=== PATIENT | male | born 1965 | race Two or more races ===

== ENCOUNTER 2020-03-27 08:58 | Outpatient (REF) | payer BC, SELFPAY ==
[2020-03-27 10:21] LABS: MANUAL DIFF FLAG NO
[2020-03-27 10:32] LABS: Basophils Absolute Auto 0.1 X10*3/uL (0.0-0.2); Basophils Percent Auto 0.8 % (0-2); Eosinophils Absolute Auto 0.3 X10*3/uL (0.0-0.4); Eosinophils Percent Auto 4.1 % (0-4); Hematocrit 42.8 % (42-52); Hemoglobin 14.2 g/dl (14.0-18.0); Imm Gran Abs Auto 0.01 X10*3/uL (0.00-0.03); Imm Gran Pct Auto 0.1 % (0.0-0.4); Lymphocytes Absolute Auto 1.8 X10*3/uL (1.2-4.9); Lymphocytes Percent Auto 23.6 % (20-40); Mean Corpuscular HGB Conc 33.2 g/dl (31.0-36.0); Mean Corpuscular Hemoglobin 30.2 pg (27.0-33.0); Mean Corpuscular Volume 91.1 fL (80-98); Mean Platelet Volume 10.8 fL (9.4-12.4); Monocytes Absolute Auto 0.7 X10*3/uL (0.1-1.2); Monocytes Percent Auto 8.4 % (2-11); Neutrophils Absolute Auto 4.9 X10*3/uL (2.0-8.3); Platelet Count 267 X10*3/uL (160-400); Red Cell Distribution Width 13.6 % (11.0-16.0); White Blood Count 7.8 X10*3/uL (4.8-10.8)
[2020-03-27 11:09] LABS: Alanine Aminotransferase 12 U/L (0-40); Albumin Level 4.7 g/dL (3.5-5.0); Alkaline Phosphatase 77 U/L (39-117); Anion Gap 14 (12-20); Aspartate Amino Transferase 17 U/L (5-37); Bilirubin Total 0.6 mg/dL (0.0-1.0); Blood Urea Nitrogen 20 mg/dL (9-16); Calcium 9.2 mg/dL (8.4-10.2); Carbon Dioxide 28 mmol/L (22-29); Chloride 104 mmol/L (96-108); Cholesterol 236 mg/dL; Estimated Glomerular Filt Rate > 60; Glucose Fasting 88 mg/dL (60-99); HDL Cholesterol 43 mg/dL; Iron 94 mcg/dL (45-160); LDL Cholesterol Calculated 135 mg/dl; Percent Iron Saturation 25 % (15-50); Potassium 4.5 mmol/l (3.3-5.1); Sodium 141 mmol/L (135-145); Total Iron Binding Capacity 369 mcg/dL (228-428); Total Protein 7.2 g/dL (6.5-8.0); Triglycerides 290 mg/dL; Unsaturated Iron Binding 275 ug/dL
[2020-03-27 11:30] LABS: Ferritin 22 ng/mL (20-250)
[2020-03-27 11:44] LABS: Folate 11.6 ng/mL (> or = 4.0); Vitamin B12 558 pg/mL (200-900)
== END 2020-03-27 08:59 | disposition home or self-care (01) ==
LOC: HO.LAB 08:58
PROVIDERS: PCP Internal Medicine; Visit Provider Internal Medicine
DX: E78.00 Pure hypercholesterolemia, unspecified (principal); D64.9 Anemia, unspecified
CPT/HCPCS: 36415; 80053; 80061; 82607; 82728; 82746; 83540; 85025

== ENCOUNTER 2021-05-24 09:42 | Outpatient (REF) | payer BC, SELFPAY ==
[2021-05-24 10:53] LABS: Alanine Aminotransferase 15 U/L (0-40); Albumin Level 4.3 g/dL (3.5-5.0); Alkaline Phosphatase 84 U/L (39-117); Anion Gap 11 (12-20); Aspartate Amino Transferase 18 U/L (5-37); Bilirubin Total 0.4 mg/dL (0.0-1.0); Blood Urea Nitrogen 17 mg/dL (9-16); Calcium 9.3 mg/dL (8.4-10.2); Carbon Dioxide 28 mmol/L (22-29); Chloride 104 mmol/L (96-108); Cholesterol 224 mg/dL; Estimated Glomerular Filt Rate > 60; Glucose Fasting 108 mg/dL (60-99); HDL Cholesterol 37 mg/dL; LDL Cholesterol Calculated 150 mg/dl; Potassium 4.5 mmol/L (3.3-5.1); Sodium 138 mmol/L (135-145); Total Protein 6.9 g/dL (6.5-8.0); Triglycerides 189 mg/dL
[2021-05-29 15:21] LABS: Testosterone, Free 84.6 pg/mL (35.0-155.0); Testosterone, Total 627 ng/dL (250-1100)
== END 2021-05-24 09:43 | disposition home or self-care (01) ==
LOC: HO.LAB 09:42
PROVIDERS: PCP Internal Medicine; Visit Provider Internal Medicine
DX: E78.2 Mixed hyperlipidemia (principal); N52.9 Male erectile dysfunction, unspecified
CPT/HCPCS: 36415; 80053; 80061; 84402; 84403

== ENCOUNTER 2022-07-02 07:39 | Emergency (ER) | payer BC, SELFPAY ==
--- NOTE | ~2022-07-02 | CT_ITS ---
EXAMINATION: CT ABDOMEN AND PELVIS WITHOUT CONTRAST CLINICAL INFORMATION: Abdominal pain COMPARISON: 06/04/2017 TECHNIQUE: Multidetector volumetric imaging was performed from the superior aspect of the liver through the pubic symphysis. Sagittal and coronal reformatted images were obtained on the technologist's workstation. This CT examination was performed using dose optimization techniques as appropriate, variously including the following: *Automated exposure control *Adjustment of mA and/or kV according to patient size (this includes techniques or standardized protocols for targeted exams where dose is matched to indication/reason for exam; i.e. extremities or head) *Use of iterative reconstruction technique DLP: 309 mGy-cm FINDINGS: LUNG BASES: The visualized lung bases are clear. Coronary artery calcifications.. LIVER, GALLBLADDER, AND BILIARY TREE: The liver is normal in size, shape, and attenuation. Small cyst noted in the right lobe of the liver. No solid hepatic lesion or biliary ductal dilatation is present. The gallbladder is unremarkable with no evidence of radiopaque gallstones, gallbladder wall thickening, or obvious pericholecystic inflammatory changes. PANCREAS: Unremarkable. SPLEEN: Unremarkable. ADRENAL GLANDS: Unremarkable. KIDNEYS AND URETERS: The kidneys are normal in size, shape, and attenuation. No hydronephrosis or hydroureter. Left upper pole 0.2 cm calculus is 4.5 cm from the posterior axillary line. BLADDER: Unremarkable. GASTROINTESTINAL TRACT: Distended stomach without wall thickening. Normal caliber small bowel. No obstruction. Normal appendix. No colonic wall thickening or inflammatory change. No free air or free fluid. ABDOMINAL WALL: No significant hernia is appreciated. LYMPH NODES: Normal. VASCULAR: Normal caliber aorta with mild atherosclerotic calcification. PELVIC VISCERA: Enlarged prostate with internal calcifications. The prostate measures 5.3 cm transverse. The seminal vesicles are unremarkable. OSSEOUS STRUCTURES: No acute or suspicious osseous abnormality. Mild degenerative changes in the hips. CT/CT abdomen pelvis wo IV con IMPRESSION: 1. No acute findings in the abdomen or pelvis. No inflammatory changes. 2. Nonobstructing left upper pole renal calculus. Fleischner guidelines were followed.
[2022-07-02 07:41] VITALS: BP 148/96; PULSE 96; RESP 18; TEMP 36.6; O2SAT 100; BMI 21.6
[2022-07-02] MEDS: Ondansetron ODT 4 MG TAB.RAPDIS TRANSLINGU (07:49)
[2022-07-02 07:55] LABS: MANUAL DIFF FLAG NO
[2022-07-02 07:58] LABS: Basophils Percent Auto 0.2 % (0-2); Hematocrit 42.6 % (42.0-52.0); Hemoglobin 14.4 g/dl (14.0-18.0); Imm Gran Abs Auto 0.04 X10*3/uL (0.00-0.03); Imm Gran Pct Auto 0.3 % (0.0-0.4); Lymphocytes Absolute Auto 0.8 X10*3/uL (1.2-4.9); Lymphocytes Percent Auto 6.6 % (20-40); Mean Corpuscular HGB Conc 33.8 g/dl (31.0-36.0); Mean Corpuscular Hemoglobin 29.9 pg (27.0-33.0); Mean Corpuscular Volume 88.4 fL (80.0-98.0); Monocytes Absolute Auto 0.5 X10*3/uL (0.1-1.2); Monocytes Percent Auto 4.3 % (2-11); Neutrophils Absolute Auto 10.8 x10*3/uL (2.0-8.3); Neutrophils Percent Auto 88.6 % (45-73); Platelet Count 284 X10*3/uL (160-400); Red Blood Count 4.82 X10*6/uL (4.60-5.80); Red Cell Distribution Width 13.7 % (11.0-16.0); White Blood Count 12.2 X10*3/uL (4.8-10.8)
[2022-07-02 08:11] LABS: Alanine Aminotransferase 19 U/L (0-40); Albumin Level 5.1 g/dL (3.5-5.0); Alkaline Phosphatase 73 U/L (39-117); Anion Gap 18 (12-20); Aspartate Amino Transferase 16 U/L (5-37); Bilirubin Total 0.9 mg/dL (0.0-1.0); Blood Urea Nitrogen 17 mg/dL (9-16); Calcium 9.8 mg/dL (8.4-10.2); Carbon Dioxide 23 mmol/L (22-29); Chloride 107 mmol/L (96-108); Creatinine Clr Calc Pharmacy 70.3; Estimated Glomerular Filt Rate > 60; Glucose Random 177 mg/dL (60-115); Potassium 3.7 mmol/L (3.3-5.1); Sodium 144 mmol/L (135-145); Total Protein 7.6 g/dL (6.5-8.0)
--- NOTE | 2022-07-02 08:21 | ED_ITS ---
HPI - General Adult General Chief complaint: Nausea/Vomiting/Diarrhea Stated complaint: Vomiting/L side chest pain Time Seen by Provider: 07/02/22 08:20 Source: patient Mode of arrival: ambulatory Limitations: no limitations History of Present Illness HPI narrative: Patient is a 57 year old assigned male at with a history of diverticulosis presenting to the emergency department today with nausea and vomiting. Patient states that over the last 24 hours he has had nausea and vomiting. Patient denies any dizziness, lightheadedness, abdominal pain, fever, chills, blurry vision, double vision, loss of vision, chest pain, difficulty breathing, shortness of breath, back pain, night sweats, pain with urination, increased urinary frequency, increased urinary urgency, blood in his urine or stool, syncope or a near syncopal episode, recent trauma or falls, bowel incontinence, bladder incontinence, bowel retention, bladder retention, or any other complaints at this time. Patient denies eating any new or different foods. Patient denies any sick contacts. Onset (ago): hour(s) (24) Severity: mild Severity scale (1-10): 2 Relieving factors: none Exacerbating factors: none Associated symptoms: nausea/vomiting Treatments prior to arrival: none Related Data Previous Rx's Medication Instructions Recorded atorvastatin 80 mg tablet 80 mg PO BEDTIME 90 days #90 tabs 05/22/22 fenofibrate 54 mg tablet 54 mg PO DAILY 90 days #90 tabs 05/22/22 ondansetron 4 mg disintegrating 4 mg PO Q8H 3 days #9 tabs 07/02/22 tablet Allergies Allergy/AdvReac Type Severity Reaction Status Date / Time No Known Allergies Allergy Verified 05/22/22 08:40 [No Known Allergies*] Review of Systems Constitutional: Constitutional: Reports no additional constitutional complaints, Denies chills, Denies fever(s) and Denies night sweats Eyes: Eyes: Reports no additional eye complaints, Denies blurry vision, Denies change in vision, Denies diplopia, Denies eye discharge, Denies loss of vision and Denies eye pain ENT: Denies dizziness Cardiovascular: Cardiovascular: Reports no additional cardiovascular complaints, Denies chest pain, Denies lightheadedness, Denies Loss of Consciousness and Denies dyspnea Respiratory: Respiratory: Reports no additional respiratory complaints and Denies dyspnea Gastrointestinal: Gastrointestinal: Reports no additional gastrointestinal complaints, Denies abdominal pain, Denies melena, Denies hematochezia, Denies change in bowel habits, Denies change in stool character, Reports nausea and Reports vomiting Genitourinary: Genitourinary: Reports no additional male genitourinary complaints, Denies hematuria, Denies oliguria, Denies difficulty urinating, Denies dysuria, Denies urinary frequency, Denies urinary hesitancy, Denies urinary incontinence and Denies urinary urgency Musculoskeletal: Musculoskeletal: Reports no additional musculoskeletal complaints, Denies numbness and Denies tingling Neurologic: Denies dizziness, Denies loss of vision, Denies numbness and Denies tingling Psychiatric: Psychiatric: Reports no additional psychiatric complaints Endocrine: Endocrine: Reports no additional endocrine complaints Hematologic/Lymphatic: Hematologic/Lymphatic: Reports no additional hematologic/lymphatic complaints Allergic/Immunologic: Allergic/Immunologic: Reports no additional allergic/immunologic complaints [facility] Past Medical History Attestation statement: The following information was validated with the patient. Source: old records reviewed and nursing notes reviewed Medical History Diverticulosis Encounter for physical examination Erectile dysfunction Hemorrhoids Mixed hyperlipidemia Surgical History History of inguinal hernia repair Family History Family History Father No problems noted. Mother Chronic mental illness Alzheimers disease Paternal Grandmother Cancer Maternal Uncle Cancer Paternal Aunt Cancer Paternal Uncle Colon cancer Sister Breast cancer Maternal Grandfather Colon cancer Paternal Grandfather Prostate cancer Family/Other Chronic mental illness Social History Social History Housing: Apartment Alcohol intake: current Alcohol intake frequency: holidays/special occasions only Alcohol type: beer Patient Tobacco Use Status: Former Tobacco user Tobacco use type: Cigarette Smoked in Last 30 Days: No e-Cigarette/Vaping Use: Never Used Second Hand Smoke Exposure: No Substance Use Type: Marijuana Advance Directives: Yes Advance Directives Information Provided: Yes Advance Directives on File: No service: No Current occupational status: employed Current occupational exposures/hazards: No Cognitive needs: No Hearing needs: No Vision needs: No Physical Exam ED Vital Signs: Vital Signs - 24 hr 07/02/22 07:41 07/02/22 08:49 Temperature 97.9 F 98.9 F Pulse Rate 96 79 Respiratory Rate 18 16 Blood Pressure 148/96 H 151/85 H Pulse Oximetry 100 100 Oxygen Delivery Method Room Air Room Air BMI result Body Mass Index 21.6 Const General: cooperative, no acute distress, alert and awake Nutritional Appearance: well nourished Orientation/consciousness: patient oriented x3 Limitations: no limitations HENMT Head: Yes normal to inspection and Yes atraumatic Ears: hearing grossly normal bilaterally and external ears normal General nose exam: Normal external nose present, no nasal discharge noted and no epistaxis Face and sinus: Yes normal facial exam, No abrasion and No laceration Mouth: Normal oral and palatal mucosa present, no drooling and no muffled voice Eyes General: appearance normal, both eyes and all related structures Periorbital: periorbital findings normal Eyelids: Yes eyelids normal Conjunctivae: conjunctivae normal Pupils: Equal, round and reactive pupils present EOM: EOMs intact bilaterally Neck Neck: Yes normal visual inspection, Yes full ROM and Yes no lymphadenopathy Chest Chest palpation & inspection: normal inspection of the chest Resp Effort & Inspection: normal respiratory effort and able to speak in complete sentences Auscultation: clear to auscultation bilaterally Cardio Rate: regular rate Rhythm: regular rhythm GI Inspection: Yes normal to inspection Palpation (GI): Soft to palpation, not firm, nontender and no guarding Neuro General: patient oriented x3 and moves all extremities Cranial nerves: Yes Equal, round and reactive pupils present Cognition (Neuro): normal cognition Motor exam (neuro): 5/5 motor strength present throughout Sensory Exam: Normal double simultaneous stimulation for sensation Coordination: [id number] test normal Extrem General: Yes normal to inspection, Yes full ROM and Yes capillary refill normal Psych Appearance: grossly normal Mental Status: mental status grossly normal Affect: normal affect Attitude: cooperative Thought process: Normal thought process present Thought content: Normal thought content present Insight: Good insight present (Psych) Medications Administered Discontinued Medications Generic Name Dose Route Start Last Admin Trade Name Freq PRN Reason Stop Dose Admin Ondansetron HCl 4 mg 07/02/22 07:46 07/02/22 07:49 Ondansetron Odt 4 Mg Tab.Rapdis TRANSLINGU 07/02/22 07:47 4 mg ONCE ONE Administration Medical Decision Making Medical Decision Making MDM Narrative: Patient is a 57 year old assigned male at with a history of diverticulosis presenting to the emergency department today with nausea and vomiting. Patient's physical exam was unremarkable. Patient's blood work showed a slightly elevated WBC count however, this is consistent with a vomiting individual Patient's abdomen/pelvis CT showed no acute process. I explained my physical exam findings as well as all test results to the patient. I answered all questions asked by the patient. Patient received Zofran which he stated helped his symptoms significantly. I stressed the importance of the patient taking his medication as prescribed. I stressed the importance of the patient following up with his primary care provider. I stressed the importance of the patient returning to the emergency department immediately if his symptoms were to worsen or if he were to develop any dizziness, shortness of breath, difficulty breathing, chest pain, blurry vision, loss of vision, nausea, vomiting, abdominal pain, fever, chills, back pain, or any other complaints. Patient verbalized agreement and understanding with this treatment plan and discharge. Differential Diagnosis Differential Diagnoses: The differential diagnosis associated with the presentation includes Nausea, vomiting, gastroenteritis Lab Data MDM Lab Attestation statement: I reviewed the patient's lab results. 07/02/22 07:50 07/02/22 07:50 Labs: Lab Results 07/02/22 07/02/22 07/02/22 Range/Units 07:50 07:50 07:50 WBC 12.2 H (4.8-10.8) X10*3/uL RBC 4.82 (4.60-5.80) X10*6/uL Hgb 14.4 (14.0-18.0) g/dl Hct 42.6 (42.0-52.0) % MCV 88.4 (80.0-98.0) fL MCH 29.9 (27.0-33.0) pg MCHC 33.8 (31.0-36.0) g/dl RDW 13.7 (11.0-16.0) % Plt Count 284 (160-400) X10*3/uL MPV 10.0 (9.4-12.4) fL Immature Gran % (Auto) 0.3 (0.0-0.4) % Neut % (Auto) 88.6 H (45-73) % Lymph % (Auto) 6.6 L (20-40) % Miner % (Auto) 4.3 (2-11) % Eos % (Auto) 0.0 (0-4) % Baso % (Auto) 0.2 (0-2) % Lymph # (Auto) 0.8 L (1.2-4.9) X10*3/uL Miner # (Auto) 0.5 (0.1-1.2) X10*3/uL Eos # (Auto) 0.0 (0.0-0.4) X10*3/uL Baso # (Auto) 0.0 (0.0-0.2) X10*3/uL Abs Immat Gran (auto) 0.04 H (0.00-0.03) X10*3/uL Absolute Neuts (auto) 10.8 H (2.0-8.3) x10*3/uL Absolute Nucleated RBC 0.000 (0.0-0.012) X10*3/uL Nucleated RBC % (auto) 0.0 (0.0-0.2) /100WBC Sodium 144 (135-145) mmol/L Potassium 3.7 (3.3-5.1) mmol/L Chloride 107 (96-108) mmol/L Carbon Dioxide 23 (22-29) mmol/L Anion Gap 18 (12-20) BUN 17 H (9-16) mg/dL Creatinine 0.99 (0.5-1.4) mg/dL Estim Creat Clear Calc 70.3 Estimated GFR > 60 Random Glucose 177 H (60-115) mg/dL Calcium 9.8 (8.4-10.2) mg/dL Total Bilirubin 0.9 (0.0-1.0) mg/dL AST 16 (5-37) U/L ALT 19 (0-40) U/L Alkaline Phosphatase 73 (39-117) U/L Total Protein 7.6 (6.5-8.0) g/dL Albumin 5.1 H (3.5-5.0) g/dL Lipase 15 (8-78) U/L Influenza Type A (PCR) NEGATIVE (Negative) Influenza Type B (PCR) NEGATIVE (Negative) RSV RNA Qual (PCR) NEGATIVE (Negative) SARS-CoV-2 RNA (RT-PCR) NEGATIVE (Negative) Independent Interpretation I performed an independent interpretation of an: CT Scan Interpretation: My interpretation is in agreement with the radiologist's impression of this imaging study. EXAMINATION: CT ABDOMEN AND PELVIS WITHOUT CONTRAST? CLINICAL INFORMATION: Abdominal pain? COMPARISON: 06/04/2017? TECHNIQUE: Multidetector volumetric imaging was performed from the superior aspect of the liver through the pubic symphysis. Sagittal and coronal reformatted images were obtained on the technologist's workstation.? This CT examination was performed using dose optimization techniques as appropriate, variously including the following: *Automated exposure control *Adjustment of mA and/or kV according to patient size (this includes techniques or standardized protocols for targeted exams where dose is matched to indication/reason for exam; i.e. extremities or head) *Use of iterative reconstruction technique DLP: 309 mGy-cm FINDINGS: LUNG BASES: The visualized lung bases are clear. Coronary artery calcifications..? LIVER, GALLBLADDER, AND BILIARY TREE: The liver is normal in size, shape, and attenuation. Small cyst noted in the right lobe of the liver. No solid hepatic lesion or biliary ductal dilatation is present. The gallbladder is unremarkable with no evidence of radiopaque gallstones, gallbladder wall thickening, or obvious pericholecystic inflammatory changes.? PANCREAS: Unremarkable.? SPLEEN: Unremarkable.? ADRENAL GLANDS: Unremarkable.? KIDNEYS AND URETERS: The kidneys are normal in size, shape, and attenuation. No hydronephrosis or hydroureter. Left upper pole 0.2 cm calculus is 4.5 cm from the posterior axillary line. BLADDER: Unremarkable.? GASTROINTESTINAL TRACT: Distended stomach without wall thickening. Normal caliber small bowel. No obstruction. Normal appendix. No colonic wall thickening or inflammatory change. No free air or free fluid.? ABDOMINAL WALL: No significant hernia is appreciated.? LYMPH NODES: Normal. VASCULAR: Normal caliber aorta with mild atherosclerotic calcification. PELVIC VISCERA: Enlarged prostate with internal calcifications. The prostate measures 5.3 cm transverse. The seminal vesicles are unremarkable.? OSSEOUS STRUCTURES: No acute or suspicious osseous abnormality. Mild degenerative changes in the hips.? CT/CT abdomen pelvis wo IV con IMPRESSION: 1.? No acute findings in the abdomen or pelvis. No inflammatory changes. 2.? Nonobstructing left upper pole renal calculus. ? Fleischner guidelines were followed. Dictated By: Arturo Zhong MD Signed By: Electronically signed by Arturo Zhong MD 07/02/22 0961 Discharge Plan Discharge Clinical Impression: Nausea & vomiting Patient Disposition: Home, Self-Care Instructions: Acute Nausea and Vomiting (ED) Additional Instructions: Follow up with your primary care provider. Return to the emergency department immediately if your symptoms worsen or if you develop any dizziness, shortness of breath, difficulty breathing, chest pain, blurry vision, loss of vision, nausea, vomiting, abdominal pain, fever, chills, back pain, or any other complaints. Prescriptions: New ondansetron 4 mg tablet,disintegrating 4 mg PO Q8H 3 Days Qty: 9 0RF No Action atorvastatin 80 mg tablet 80 mg PO BEDTIME 90 Days Qty: 90 1RF fenofibrate 54 mg tablet 54 mg PO DAILY 90 Days Qty: 90 1RF Referrals: Tianna Alvarado MD [Primary Care Provider] - Print Language: [place]ian
[2022-07-02 08:34] LABS: Influenza A PCR NEGATIVE (Negative); Influenza B PCR NEGATIVE (Negative); Resp Syncy Virus RNA Qual PCR NEGATIVE (Negative); SARS COV2 PCR INHOUSE NEGATIVE (Negative)
[2022-07-02 08:49] VITALS: BP 151/85; PULSE 79; RESP 16; TEMP 37.2; O2SAT 100
[2022-07-02 08:49] LABS: Lipase 15 U/L (8-78)
== END 2022-07-02 09:48 | disposition home or self-care (01) ==
PROVIDERS: Physician Assistant Medical; Emergency Provider Emergency Medicine; PCP Internal Medicine
DX: R07.89 Other chest pain (principal); R11.2 Nausea with vomiting, unspecified; Z20.822 Contact with and (suspected) exposure to COVID-19; Z20.828 Contact with and (suspected) exposure to other viral communicable diseases; Z79.899 Other long term (current) drug therapy
CPT/HCPCS: 0241U; 36415; 74176; 80053; 83690; 85025; 99284

== ENCOUNTER 2022-07-12 11:06 | Inpatient (IN) | payer BC, SELFPAY ==
[2022-07-12] VITALS (9 sets, daily range): BP systolic 103–156; BP diastolic 74–93; PULSE 75–97; RESP 14–17; TEMP 36.8–37.9; O2SAT 97–100
--- NOTE | ~2022-07-12 | CT_ITS ---
EXAMINATION: CT CHEST, ABDOMEN AND PELVIS WITH CONTRAST CLINICAL INFORMATION: Gastric ulcer. COMPARISON: Chest radiograph dated 07/12/2022. CT abdomen/pelvis dated 07/02/2022. TECHNIQUE: Contiguous axial thin section helical images of the chest, abdomen and pelvis were performed following the administration of oral contrast and 85 mL of intravenous Omnipaque 350. The data set was reformatted in the coronal and sagittal planes and reviewed on an independent workstation. This CT examination was performed using dose optimization techniques as appropriate, variously including the following: *Automated exposure control *Adjustment of mA and/or kV according to patient size (this includes techniques or standardized protocols for targeted exams where dose is matched to indication/reason for exam; i.e. extremities or head) *Use of iterative reconstruction technique DLP: 525 mGy-cm. FINDINGS: LUNGS: Minimal linear atelectasis within the lung bases. No large, confluent airspace consolidation. No pulmonary nodule or mass. The central airways are patent. PLEURA: No pleural effusion or pneumothorax. No pleural mass or thickening. MEDIASTINUM: No cardiomegaly. No significant pericardial effusion. Coronary artery calcifications are present. No thoracic aortic dilatation or dissection. No significant mediastinal or hilar lymphadenopathy. CHEST WALL/AXILLA: No lymphadenopathy. THYROID: Unremarkable LIVER, GALLBLADDER, AND BILIARY TREE: Normal size, shape, and attenuation. No focal hepatic lesion. No intra or extrahepatic biliary ductal dilatation. The gallbladder is unremarkable with no evidence of radiopaque gallstones, gallbladder wall thickening, or obvious pericholecystic inflammatory changes. PANCREAS: Unremarkable. SPLEEN: Unremarkable. ADRENAL GLANDS: Unremarkable. KIDNEYS AND URETERS: Normal size, shape, and attenuation. No hydronephrosis, hydroureter, or calculi. The previously seen left upper pole renal stone is not well visualized, likely related to contrast. Tiny bilateral renal hypodensities measuring less than 0.5 cm, too small to characterize. No perinephric stranding. BLADDER: Unremarkable. GASTROINTESTINAL TRACT: There is wall thickening of the gastric fundus which appears increased when compared to the prior examination. No significant enhancement. Findings could indicate acute gastritis. No pneumatosis or evidence of perforation. No additional bowel wall thickening or inflammatory change. No small- or large-bowel obstruction. Contrast reaches the rectum. Unremarkable appendix. PERITONEAL CAVITY: No intra-abdominal free air or free fluid. ABDOMINAL WALL: No significant abdominal wall hernia. LYMPH NODES: No significant lymphadenopathy. VASCULAR: Contrast opacifies the abdominal aorta and its branch vessels. No abdominal aortic dilatation or dissection. Scattered atherosclerotic calcifications. The IVC is unremarkable. PELVIC VISCERA: Prominent prostatomegaly with central calcifications, unchanged. OSSEOUS STRUCTURES: No acute osseous abnormality. No lytic or blastic osseous lesion. CT/CT abdomen pelvis w IV con IMPRESSION: 1. Prominent wall thickening of the gastric fundus, increased when compared to the prior examination. No significant enhancement. Findings could indicate acute gastritis. No pneumatosis or evidence of perforation. 2. No intra-abdominal mass, lymphadenopathy, or ascites. 3. No hydronephrosis or nephrolithiasis. Previously seen left upper pole renal stone is not well visualized, likely related to contrast. 4. Prominent prostatomegaly with central calcifications, unchanged. 5. No pulmonary nodule, mass, or confluent airspace consolidation.
--- NOTE | ~2022-07-12 | XR_ITS ---
EXAMINATION: XR CHEST CLINICAL INFORMATION: Chest pain COMPARISON: None available. TECHNIQUE: 2 views of the chest were obtained. FINDINGS: No significant abnormality is noted involving the heart, lungs, mediastinum, bony thorax or soft tissues. XR/XR chest 2V IMPRESSION: Unremarkable chest examination.
--- NOTE | 2022-07-12 11:09 | ECG_ITS ---
Test Reason : chest pain Blood Pressure : / mmHG Vent. Rate : 095 BPM Atrial Rate : 095 BPM P-R Int : 118 ms QRS Dur : 090 ms QT Int : 330 ms P-R-T Axes : 081 035 072 degrees QTc Int : 414 ms Normal sinus rhythm Normal ECG When compared with ECG of 04-JUN-2017 16:44, No significant change was found Referred By: Generic ED Physician Electronically Signed By:Herbert Kaur
--- NOTE | 2022-07-12 11:14 | ED.GENADULT ---
HPI - General Adult General Chief complaint: Chest Pain <MARGI Ireland - Last Filed: 07/12/22 11:15> Stated complaint: severe chest pain, irregular heart beat <MARGI Ireland - Last Filed: 07/12/22 11:15> Time Seen by Provider: 07/12/22 12:46 <MARGI Ireland - Last Filed: 07/12/22 11:15> Source: patient <Lamine Rodriguez MD - Last Filed: 07/12/22 14:18> Mode of arrival: ambulatory <Lamine Rodriguez MD - Last Filed: 07/12/22 14:18> Limitations: no limitations <Lamine Rodriguez MD - Last Filed: 07/12/22 14:18> History of Present Illness HPI narrative: chest pain for a few days, mostly constant but followed by vomiting. Pain is left side and epigastric. No chest pain in the past. Pain is described as squeezing with shortness of breath. The pain increases with eating and causes him to vomit. CT of abdomen and pelvis showed no acute abnormality <Lamine Rodriguez MD - Last Filed: 07/12/22 14:18> Onset (ago): day(s) <Lamine Rodriguez MD - Last Filed: 07/12/22 14:18> Location: chest and abdomen <Lamine Rodriguez MD - Last Filed: 07/12/22 14:18> Radiation: non-radiation <Lamine Rodriguez MD - Last Filed: 07/12/22 14:18> Severity: mild <Lamine Rodriguez MD - Last Filed: 07/12/22 14:18> Quality: other (squeezing) <Lamine Rodriguez MD - Last Filed: 07/12/22 14:18> Pain Consistency: intermittent <Lamine Rodriguez MD - Last Filed: 07/12/22 14:18> Associated symptoms: nausea/vomiting <Lamine Rodriguez MD - Last Filed: 07/12/22 14:18> Related Data Home medications: Previous Rx's Medication Instructions Recorded atorvastatin 80 mg tablet 80 mg PO BEDTIME 90 days #90 tabs 05/22/22 fenofibrate 54 mg tablet 54 mg PO DAILY 90 days #90 tabs 05/22/22 ondansetron 4 mg disintegrating 4 mg PO Q8H 3 days #9 tabs 07/02/22 tablet <MARGI Ireland - Last Filed: 07/12/22 11:15> Allergies/adverse reactions: Allergies Allergy/AdvReac Type Severity Reaction Status Date / Time No Known Allergies Allergy Verified 07/12/22 11:13 [No Known Allergies*] <MARGI Ireland - Last Filed: 07/12/22 11:15> [facility] Past Medical History Medical History: Medical History Diverticulosis Encounter for physical examination Erectile dysfunction Hemorrhoids Mixed hyperlipidemia <MARGI Ireland - Last Filed: 07/12/22 11:15> Surgical History: Surgical History History of inguinal hernia repair <MARGI Ireland - Last Filed: 07/12/22 11:15> Family History Family History: Family History Father No problems noted. Mother Chronic mental illness Alzheimers disease Paternal Grandmother Cancer Maternal Uncle Cancer Paternal Aunt Cancer Paternal Uncle Colon cancer Sister Breast cancer Maternal Grandfather Colon cancer Paternal Grandfather Prostate cancer Family/Other Chronic mental illness <MARGI Ireland - Last Filed: 07/12/22 11:15> Social History Social History: Social History Housing: Apartment Alcohol intake: current Alcohol intake frequency: holidays/special occasions only Alcohol type: beer Patient Tobacco Use Status: Former Tobacco user Tobacco use type: Cigarette e-Cigarette/Vaping Use: Never Used Second Hand Smoke Exposure: No Substance Use Type: Marijuana Advance Directives: No Advance Directives Information Provided: Yes service: No Current occupational status: employed Current occupational exposures/hazards: No Cognitive needs: No Hearing needs: No Vision needs: No <MARGI Ireland - Last Filed: 07/12/22 11:15> Physical Exam ED Vital Signs: Vital Signs - 24 hr 07/12/22 11:13 07/12/22 11:27 07/12/22 12:42 Temperature 98.5 F 99.5 F 98.2 F Pulse Rate 97 86 Respiratory Rate 16 14 16 Blood Pressure 156/93 H 121/92 H 145/90 H Pulse Oximetry 100 100 99 Oxygen Delivery Method Room Air Room Air Room Air BMI result Body Mass Index 20.0 <MARGI Ireland - Last Filed: 07/12/22 11:15> Vital Signs - 24 hr 07/12/22 11:13 07/12/22 11:27 07/12/22 12:42 Temperature 98.5 F 99.5 F 98.2 F Pulse Rate 97 86 Respiratory Rate 16 14 16 Blood Pressure 156/93 H 121/92 H 145/90 H Pulse Oximetry 100 100 99 Oxygen Delivery Method Room Air Room Air Room Air BMI result Body Mass Index 20.0 <Lamine Rodriguez MD - Last Filed: 07/12/22 14:18> Const General: healthy appearing <Lamine Rodriguez MD - Last Filed: 07/12/22 14:18> Nutritional Appearance: average body habitus <Lamine Rodriguez MD - Last Filed: 07/12/22 14:18> Orientation/consciousness: oriented to person and patient oriented x3 <Lamine Rodriguez MD - Last Filed: 07/12/22 14:18> Limitations: no limitations <Lamine Rodriguez MD - Last Filed: 07/12/22 14:18> HENMT Head: Yes normal to inspection <Lamine Rodriguez MD - Last Filed: 07/12/22 14:18> Ears: external ears normal <Lamine Rodriguez MD - Last Filed: 07/12/22 14:18> General nose exam: Normal external nose present <Lamine Rodriguez MD - Last Filed: 07/12/22 14:18> Mouth: Normal oral and palatal mucosa present and oropharynx normal <Lamine Rodriguez MD - Last Filed: 07/12/22 14:18> Throat: Yes posterior oropharynx normal <Lamine Rodriguez MD - Last Filed: 07/12/22 14:18> Eyes General: appearance normal, both eyes and all related structures <Lamine Rodriguez MD - Last Filed: 07/12/22 14:18> Neck Neck: Yes normal visual inspection <Lamine Rodriguez MD - Last Filed: 07/12/22 14:18> Chest Chest palpation & inspection: normal inspection of the chest <Lamine Rodriguez MD - Last Filed: 07/12/22 14:18> Resp Auscultation: clear to auscultation bilaterally <Lamine Rodriguez MD - Last Filed: 07/12/22 14:18> Cardio Jugular venous distension: no JVD <Lamine Rodriguez MD - Last Filed: 07/12/22 14:18> Rate: regular rate <Lamine Rodriguez MD - Last Filed: 07/12/22 14:18> Rhythm: regular rhythm <Lamine Rodriguez MD - Last Filed: 07/12/22 14:18> Heart sounds: S1 normal heart sound present and S2 normal heart sound present <Lamine Rodriguez MD - Last Filed: 07/12/22 14:18> GI Inspection: Yes normal to inspection <Lamine Rodriguez MD - Last Filed: 07/12/22 14:18> Palpation (GI): Soft to palpation, nontender and No hepatosplenomegaly present <Lamine Rodriguez MD - Last Filed: 07/12/22 14:18> Auscultation: normal bowel sounds <Lamine Rodriguez MD - Last Filed: 07/12/22 14:18> Other: rectal black stool strong heme positive <Lamine Rodriguez MD - Last Filed: 07/12/22 14:18> Skin General skin exam: no rashes or lesions noted <Lamine Rodriguez MD - Last Filed: 07/12/22 14:18> Neuro General: oriented to person and patient oriented x3 <Lamine Rodriguez MD - Last Filed: 07/12/22 14:18> Cranial nerves: Yes CN's II-XII intact bilaterally <Lamine Rodriguez MD - Last Filed: 07/12/22 14:18> Motor exam (neuro): 5/5 motor strength present throughout <Lamine Rodriguez MD - Last Filed: 07/12/22 14:18> Extrem General: Yes normal to inspection <Lamine Rodriguez MD - Last Filed: 07/12/22 14:18> Psych Appearance: grossly normal <Lamine Rodriguez MD - Last Filed: 07/12/22 14:18> Course Course Course Narrative: RME performed by Shoshana Blunt PA-C. Patient is a 57 year old male presenting to the emergency department with chest pain. Patient states that he has been losing weight lately as well. Labs, CXR, EKG ordered. Patient placed back in the waiting room pending room availability and results. <MARGI Ireland - Last Filed: 07/12/22 11:15> Reevaluation(s) Reevaluation #1: patient with a 6 point HCT drop and now black stool with admit for GI bleed <Lamine Rodriguez MD - Last Filed: 07/12/22 14:18> Time: 14:10 <Lamine Rodriguez MD - Last Filed: 07/12/22 14:18> Medications Administered Discontinued Medications Generic Name Dose Route Start Last Admin Trade Name Freq PRN Reason Stop Dose Admin Pantoprazole Sodium 40 mg 07/12/22 13:17 07/12/22 13:49 Pantoprazole Sodium 40 Mg/10 Ml Vial IVPUSH 07/12/22 13:18 40 mg ONCE ONE Administration <MARGI Ireland - Last Filed: 07/12/22 11:15> Medications Administered Discontinued Medications Generic Name Dose Route Start Last Admin Trade Name Freq PRN Reason Stop Dose Admin Pantoprazole Sodium 40 mg 07/12/22 13:17 07/12/22 13:49 Pantoprazole Sodium 40 Mg/10 Ml Vial IVPUSH 07/12/22 13:18 40 mg ONCE ONE Administration <Lamine Rodriguez MD - Last Filed: 07/12/22 14:18> Medical Decision Making Differential Diagnosis Differential Diagnoses: The differential diagnosis associated with the presentation includes (gastritis, GI bleed, peptic ulcer, acute coronary syndrom) <Lamine Rodriguez MD - Last Filed: 07/12/22 14:18> Admission/Observation Consideration of admission/observation: Escalation of care including admission/observation considered (Patient with 57 yo male with hyperlipidemia and chest pain, admission was considered upon arrival) <Lamine Rodriguez MD - Last Filed: 07/12/22 14:18> Consult Healthcare Provider Management of the patient was discussed with: Hospitalist <Lamine Rodriguez MD - Last Filed: 07/12/22 14:18> Lab Data Result Diagrams: 07/12/22 12:09 07/12/22 12:09 <MARGI Ireland - Last Filed: 07/12/22 11:15> Labs: Lab Results 07/12/22 07/12/22 07/12/22 Range/Units 12:09 12:09 12:09 WBC 13.0 H (4.8-10.8) X10*3/uL RBC 4.23 L (4.60-5.80) X10*6/uL Hgb 12.7 L (14.0-18.0) g/dl Hct 36.9 L (42.0-52.0) % MCV 87.2 (80.0-98.0) fL MCH 30.0 (27.0-33.0) pg MCHC 34.4 (31.0-36.0) g/dl RDW 13.2 (11.0-16.0) % Plt Count 308 (160-400) X10*3/uL MPV 9.9 (9.4-12.4) fL Immature Gran % (Auto) 0.5 H (0.0-0.4) % Neut % (Auto) 80.3 H (45-73) % Lymph % (Auto) 9.4 L (20-40) % [place] % (Auto) 9.4 (2-11) % Eos % (Auto) 0.1 (0-4) % Baso % (Auto) 0.3 (0-2) % Lymph # (Auto) 1.2 (1.2-4.9) X10*3/uL [place] # (Auto) 1.2 (0.1-1.2) X10*3/uL Eos # (Auto) 0.0 (0.0-0.4) X10*3/uL Baso # (Auto) 0.0 (0.0-0.2) X10*3/uL Abs Immat Gran (auto) 0.07 H (0.00-0.03) X10*3/uL Absolute Neuts (auto) 10.5 H (2.0-8.3) x10*3/uL Absolute Nucleated RBC 0.000 (0.0-0.012) X10*3/uL Nucleated RBC % (auto) 0.0 (0.0-0.2) /100WBC Sodium 139 (135-145) mmol/L Potassium 3.5 (3.3-5.1) mmol/L Chloride 102 (96-108) mmol/L Carbon Dioxide 27 (22-29) mmol/L Anion Gap 14 (12-20) BUN 20 H (9-16) mg/dL Creatinine 1.02 (0.5-1.4) mg/dL Estim Creat Clear Calc 63.0 Estimated GFR > 60 Random Glucose 117 H (60-115) mg/dL Calcium 9.5 (8.4-10.2) mg/dL Magnesium 2.2 (1.6-2.6) mg/dL Total Bilirubin 0.6 (0.0-1.0) mg/dL AST 14 (5-37) U/L ALT 17 (0-40) U/L Alkaline Phosphatase 68 (39-117) U/L Troponin I High Sens (<3.5-35.0) ng/L B-Natriuretic Peptide < 10 (<100) pg/mL Total Protein 6.5 (6.5-8.0) g/dL Albumin 4.4 (3.5-5.0) g/dL COVID-19 ([facility]) (Negative) COVID-19 Clin Com 07/12/22 07/12/22 Range/Units 12:09 12:09 WBC (4.8-10.8) X10*3/uL RBC (4.60-5.80) X10*6/uL Hgb (14.0-18.0) g/dl Hct (42.0-52.0) % MCV (80.0-98.0) fL MCH (27.0-33.0) pg MCHC (31.0-36.0) g/dl RDW (11.0-16.0) % Plt Count (160-400) X10*3/uL MPV (9.4-12.4) fL Immature Gran % (Auto) (0.0-0.4) % Neut % (Auto) (45-73) % Lymph % (Auto) (20-40) % [place] % (Auto) (2-11) % Eos % (Auto) (0-4) % Baso % (Auto) (0-2) % Lymph # (Auto) (1.2-4.9) X10*3/uL [place] # (Auto) (0.1-1.2) X10*3/uL Eos # (Auto) (0.0-0.4) X10*3/uL Baso # (Auto) (0.0-0.2) X10*3/uL Abs Immat Gran (auto) (0.00-0.03) X10*3/uL Absolute Neuts (auto) (2.0-8.3) x10*3/uL Absolute Nucleated RBC (0.0-0.012) X10*3/uL Nucleated RBC % (auto) (0.0-0.2) /100WBC Sodium (135-145) mmol/L Potassium (3.3-5.1) mmol/L Chloride (96-108) mmol/L Carbon Dioxide (22-29) mmol/L Anion Gap (12-20) BUN (9-16) mg/dL Creatinine (0.5-1.4) mg/dL Estim Creat Clear Calc Estimated GFR Random Glucose (60-115) mg/dL Calcium (8.4-10.2) mg/dL Magnesium (1.6-2.6) mg/dL Total Bilirubin (0.0-1.0) mg/dL AST (5-37) U/L ALT (0-40) U/L Alkaline Phosphatase (39-117) U/L Troponin I High Sens < 3.5 (<3.5-35.0) ng/L B-Natriuretic Peptide (<100) pg/mL Total Protein (6.5-8.0) g/dL Albumin (3.5-5.0) g/dL COVID-19 ([facility]) Negative (Negative) COVID-19 Clin Com See Note <MARGI Ireland - Last Filed: 07/12/22 11:15> Lab Results 07/12/22 07/12/22 07/12/22 Range/Units 12:09 12:09 12:09 WBC 13.0 H (4.8-10.8) X10*3/uL RBC 4.23 L (4.60-5.80) X10*6/uL Hgb 12.7 L (14.0-18.0) g/dl Hct 36.9 L (42.0-52.0) % MCV 87.2 (80.0-98.0) fL MCH 30.0 (27.0-33.0) pg MCHC 34.4 (31.0-36.0) g/dl RDW 13.2 (11.0-16.0) % Plt Count 308 (160-400) X10*3/uL MPV 9.9 (9.4-12.4) fL Immature Gran % (Auto) 0.5 H (0.0-0.4) % Neut % (Auto) 80.3 H (45-73) % Lymph % (Auto) 9.4 L (20-40) % [place] % (Auto) 9.4 (2-11) % Eos % (Auto) 0.1 (0-4) % Baso % (Auto) 0.3 (0-2) % Lymph # (Auto) 1.2 (1.2-4.9) X10*3/uL [place] # (Auto) 1.2 (0.1-1.2) X10*3/uL Eos # (Auto) 0.0 (0.0-0.4) X10*3/uL Baso # (Auto) 0.0 (0.0-0.2) X10*3/uL Abs Immat Gran (auto) 0.07 H (0.00-0.03) X10*3/uL Absolute Neuts (auto) 10.5 H (2.0-8.3) x10*3/uL Absolute Nucleated RBC 0.000 (0.0-0.012) X10*3/uL Nucleated RBC % (auto) 0.0 (0.0-0.2) /100WBC Sodium 139 (135-145) mmol/L Potassium 3.5 (3.3-5.1) mmol/L Chloride 102 (96-108) mmol/L Carbon Dioxide 27 (22-29) mmol/L Anion Gap 14 (12-20) BUN 20 H (9-16) mg/dL Creatinine 1.02 (0.5-1.4) mg/dL Estim Creat Clear Calc 63.0 Estimated GFR > 60 Random Glucose 117 H (60-115) mg/dL Calcium 9.5 (8.4-10.2) mg/dL Magnesium 2.2 (1.6-2.6) mg/dL Total Bilirubin 0.6 (0.0-1.0) mg/dL AST 14 (5-37) U/L ALT 17 (0-40) U/L Alkaline Phosphatase 68 (39-117) U/L Troponin I High Sens (<3.5-35.0) ng/L B-Natriuretic Peptide < 10 (<100) pg/mL Total Protein 6.5 (6.5-8.0) g/dL Albumin 4.4 (3.5-5.0) g/dL COVID-19 ([facility]) (Negative) COVID-19 Clin Com 07/12/22 07/12/22 Range/Units 12:09 12:09 WBC (4.8-10.8) X10*3/uL RBC (4.60-5.80) X10*6/uL Hgb (14.0-18.0) g/dl Hct (42.0-52.0) % MCV (80.0-98.0) fL MCH (27.0-33.0) pg MCHC (31.0-36.0) g/dl RDW (11.0-16.0) % Plt Count (160-400) X10*3/uL MPV (9.4-12.4) fL Immature Gran % (Auto) (0.0-0.4) % Neut % (Auto) (45-73) % Lymph % (Auto) (20-40) % [place] % (Auto) (2-11) % Eos % (Auto) (0-4) % Baso % (Auto) (0-2) % Lymph # (Auto) (1.2-4.9) X10*3/uL [place] # (Auto) (0.1-1.2) X10*3/uL Eos # (Auto) (0.0-0.4) X10*3/uL Baso # (Auto) (0.0-0.2) X10*3/uL Abs Immat Gran (auto) (0.00-0.03) X10*3/uL Absolute Neuts (auto) (2.0-8.3) x10*3/uL Absolute Nucleated RBC (0.0-0.012) X10*3/uL Nucleated RBC % (auto) (0.0-0.2) /100WBC Sodium (135-145) mmol/L Potassium (3.3-5.1) mmol/L Chloride (96-108) mmol/L Carbon Dioxide (22-29) mmol/L Anion Gap (12-20) BUN (9-16) mg/dL Creatinine (0.5-1.4) mg/dL Estim Creat Clear Calc Estimated GFR Random Glucose (60-115) mg/dL Calcium (8.4-10.2) mg/dL Magnesium (1.6-2.6) mg/dL Total Bilirubin (0.0-1.0) mg/dL AST (5-37) U/L ALT (0-40) U/L Alkaline Phosphatase (39-117) U/L Troponin I High Sens < 3.5 (<3.5-35.0) ng/L B-Natriuretic Peptide (<100) pg/mL Total Protein (6.5-8.0) g/dL Albumin (3.5-5.0) g/dL COVID-19 ([facility]) Negative (Negative) COVID-19 Clin Com See Note <Lamine Rodriguez MD - Last Filed: 07/12/22 14:18> Independent Interpretation I performed an independent interpretation of an: EKG (sinus 95, peaked t's no other st abnormalities) <Lamine Rodriguez MD - Last Filed: 07/12/22 14:18> External Record Review I reviewed prior ED record form 10 days ago <Lamine Rodriguez MD - Last Filed: 07/12/22 14:18> Discharge Plan Discharge Clinical Impression: Peptic ulcer, Acute GI bleeding <MARGI Ireland - Last Filed: 07/12/22 11:15> Patient Disposition: Admitted As Inpatient <MARGI Ireland - Last Filed: 07/12/22 11:15> Prescriptions: No Action ondansetron 4 mg tablet,disintegrating 4 mg PO Q8H 3 Days Qty: 9 0RF atorvastatin 80 mg tablet 80 mg PO BEDTIME 90 Days Qty: 90 1RF fenofibrate 54 mg tablet 54 mg PO DAILY 90 Days Qty: 90 1RF <MARGI Ireland - Last Filed: 07/12/22 11:15>
[2022-07-12 12:18] LABS: MANUAL DIFF FLAG NO
[2022-07-12 12:22] LABS: Basophils Percent Auto 0.3 % (0-2); Eosinophils Percent Auto 0.1 % (0-4); Hematocrit 36.9 % (42.0-52.0); Hemoglobin 12.7 g/dl (14.0-18.0); Imm Gran Abs Auto 0.07 X10*3/uL (0.00-0.03); Imm Gran Pct Auto 0.5 % (0.0-0.4); Lymphocytes Absolute Auto 1.2 X10*3/uL (1.2-4.9); Lymphocytes Percent Auto 9.4 % (20-40); Mean Corpuscular HGB Conc 34.4 g/dl (31.0-36.0); Mean Corpuscular Volume 87.2 fL (80.0-98.0); Mean Platelet Volume 9.9 fL (9.4-12.4); Monocytes Absolute Auto 1.2 X10*3/uL (0.1-1.2); Monocytes Percent Auto 9.4 % (2-11); Neutrophils Absolute Auto 10.5 x10*3/uL (2.0-8.3); Neutrophils Percent Auto 80.3 % (45-73); Platelet Count 308 X10*3/uL (160-400); Red Blood Count 4.23 X10*6/uL (4.60-5.80); Red Cell Distribution Width 13.2 % (11.0-16.0)
[2022-07-12 12:35] LABS: Alanine Aminotransferase 17 U/L (0-40); Albumin Level 4.4 g/dL (3.5-5.0); Alkaline Phosphatase 68 U/L (39-117); Anion Gap 14 (12-20); Aspartate Amino Transferase 14 U/L (5-37); Bilirubin Total 0.6 mg/dL (0.0-1.0); Blood Urea Nitrogen 20 mg/dL (9-16); COVID-19 Test Negative (Negative); Calcium 9.5 mg/dL (8.4-10.2); Carbon Dioxide 27 mmol/L (22-29); Chloride 102 mmol/L (96-108); Estimated Glomerular Filt Rate > 60; Glucose Random 117 mg/dL (60-115); IDNOW Serial# 9DB6401D; Magnesium 2.2 mg/dL (1.6-2.6); Potassium 3.5 mmol/L (3.3-5.1); Sodium 139 mmol/L (135-145); Total Protein 6.5 g/dL (6.5-8.0)
[2022-07-12 12:40] LABS: B Type Natriuretic Peptide < 10 pg/mL (<100)
[2022-07-12 12:42] LABS: Troponin-I High Sensitivity < 3.5 ng/L (<3.5-35.0)
[2022-07-12] MEDS: Pantoprazole Sodium 40 MG/10 ML VIAL IVPUSH (13:49)
--- NOTE | 2022-07-12 13:50 | PC.NURSE ---
18G IV in place, PPI given
[2022-07-12 14:18] LABS: Troponin-I High Sensitivity < 3.5 ng/L (<3.5-35.0)
--- NOTE | 2022-07-12 14:41 | PM.IMHP ---
History of Present Illness Date of Service: 07/12/22 Chief Complaint: Black stool 57-year-old male originally presented to the ER 07/02/2022 with complaints of nausea vomiting and midepigastric pain. CT scan of abdomen pelvis failed to demonstrate acute pathology he was sent home on a PPI. Over the course of the week, he states his abdominal pain got worse and was exacerbated by food. About 3 days prior to presentation he started to develop black tardy stools. Today he had significant abdominal pain along with some dizziness which prompted him to return to the ER. CT scan was not repeated; chest x-ray is normal hemoglobin was stable. Given his presentation he will be admitted for GI evaluation Review of Systems Review of Systems: Admits to midsternal chest pain without associated cardiac symptoms Denies shortness of breath Admits to vomiting/nausea/diarrhea PMFSH Medical History Diverticulosis Encounter for physical examination Erectile dysfunction Hemorrhoids Mixed hyperlipidemia Family History Father No problems noted. Mother Chronic mental illness Alzheimers disease Paternal Grandmother Cancer Maternal Uncle Cancer Paternal Aunt Cancer Paternal Uncle Colon cancer Sister Breast cancer Maternal Grandfather Colon cancer Paternal Grandfather Prostate cancer Family/Other Chronic mental illness Surgical History History of inguinal hernia repair Social History Housing: Apartment Alcohol intake: current Alcohol intake frequency: holidays/special occasions only Alcohol type: beer Patient Tobacco Use Status: Former Tobacco user Tobacco use type: Cigarette e-Cigarette/Vaping Use: Never Used Second Hand Smoke Exposure: No Substance Use Type: Marijuana Advance Directives: No Advance Directives Information Provided: Yes service: No Current occupational status: employed Current occupational exposures/hazards: No Cognitive needs: No Hearing needs: No Vision needs: No Meds Allergies Allergy/AdvReac Type Severity Reaction Status Date / Time No Known Allergies Allergy Verified 07/12/22 11:13 [No Known Allergies*] Active Medications: Current Medications Acetaminophen (Acetaminophen 325 Mg Tablet) 650 mg PO Q6H PRN PRN Reason: Pain, Mild (Pain Scale 1-3) Lactated Ringer's (Lr) 1,000 mls @ 100 mls/hr IVCONT .Q10H [facility] Ondansetron HCl (Ondansetron Hcl 4 Mg/2 Ml Vial) 4 mg IVPUSH Q8H PRN PRN Reason: Nausea and Vomiting Pantoprazole Sodium (Pantoprazole Sodium 40 Mg/10 Ml Vial) 40 mg IVPUSH Q12H [facility] Pharmacy Consult (Consult Rx Perform Med Rec) 1 each MISCELLANE ONCE PRN PRN Reason: Consult order Sodium Chloride (0.9 % Sodium Chloride Flush 3 Ml Syringe) 3 ml IVFLUSH QSHIFT [facility] Home Medications Medication Instructions Recorded Confirmed Last Taken Type atorvastatin 80 mg tablet 80 mg PO .BEDTIME Q48H 07/12/22 07/12/22 07/11/22 History ondansetron 4 mg disintegrating 4 mg PO Q8H PRN Nausea And Vomiting 07/12/22 07/12/22 07/12/22 History tablet Physical Exam Vital Signs and Narrative: Vital Signs: Last Vital Signs Temp 98.2 F 07/12/22 12:42 Pulse 86 07/12/22 11:27 Resp 16 07/12/22 12:42 BP 145/90 H 07/12/22 12:42 Pulse Ox 99 07/12/22 12:42 O2 Del Method 07/12/22 12:42 BMI result Body Mass Index 20.0 Const: Other: Awake alert no acute distress Resp: Other: Clear to auscultation bilaterally no rales rhonchi wheezes Cardio: Other: No S4; positive S1-S2; no S3 murmurs rubs or gallops GI: Other: Soft nontender nondistended normoactive bowel sounds Neuro: Other: Cranial nerves 2-12 grossly intact as tested. Motor is 5/5 all extremities. Sensation intact. Cognition appropriate Extrem: Other: No edema bilaterally Results Labs 07/12/22 12:09 07/12/22 12:09 Labs: Laboratory Results - last 24 hr 07/12/22 07/12/22 07/12/22 12:09 12:09 12:09 MCV 87.2 MCH 30.0 MCHC 34.4 RDW 13.2 Plt Count 308 MPV 9.9 Immature Gran % (Auto) 0.5 H Neut % (Auto) 80.3 H Lymph % (Auto) 9.4 L [place] % (Auto) 9.4 Eos % (Auto) 0.1 Baso % (Auto) 0.3 Lymph # (Auto) 1.2 [place] # (Auto) 1.2 Eos # (Auto) 0.0 Baso # (Auto) 0.0 Abs Immat Gran (auto) 0.07 H Absolute Neuts (auto) 10.5 H Absolute Nucleated RBC 0.000 Nucleated RBC % (auto) 0.0 Anion Gap 14 Estim Creat Clear Calc 63.0 Estimated GFR > 60 Random Glucose 117 H Calcium 9.5 Magnesium 2.2 Total Bilirubin 0.6 AST 14 ALT 17 Alkaline Phosphatase 68 Troponin I High Sens B-Natriuretic Peptide < 10 Total Protein 6.5 Albumin 4.4 COVID-19 ([facility]) COVID-19 Clin Com 07/12/22 07/12/22 07/12/22 12:09 12:09 13:43 MCV MCH MCHC RDW Plt Count MPV Immature Gran % (Auto) Neut % (Auto) Lymph % (Auto) [place] % (Auto) Eos % (Auto) Baso % (Auto) Lymph # (Auto) [place] # (Auto) Eos # (Auto) Baso # (Auto) Abs Immat Gran (auto) Absolute Neuts (auto) Absolute Nucleated RBC Nucleated RBC % (auto) Anion Gap Estim Creat Clear Calc Estimated GFR Random Glucose Calcium Magnesium Total Bilirubin AST ALT Alkaline Phosphatase Troponin I High Sens < 3.5 < 3.5 B-Natriuretic Peptide Total Protein Albumin COVID-19 ([facility]) Negative COVID-19 Clin Com See Note Imaging Radiologist's Impressions: Impressions Chest X-Ray 07/12/22 11:34 IMPRESSION: Unremarkable chest examination. Assessment and Plan (1) Acute GI bleeding: Status: Acute Plan 57-year-old male presents with chest discomfort nausea vomiting originally 1 week ago; presents today with worsening of symptoms including postprandial pain and black tarry stools. Heme-positive from below in the ER. Hemoglobin stable. 1.GI bleed (Hx PUD) -admit . . . Keep NPO -IV pantoprazole q.12 hours -serial CBCs -GI consult 2. Hyperlipidemia -hold statin at this time -add back when appropriate Full code Sequentials Patient will require at least 2 midnights going forward of inpatient stay to evaluate GI bleed E and follow serial hemoglobins. This cannot be achieved a lesser acute setting Time Spent With Patient Time: Total time managing care of this patient today ____ minutes. Quality Stroke Does the patient have a stroke diagnosis?: No VTE Prior VTE?: No VTE Risk Level:: Medical - moderate - high VTE Device Contraindication: N/A - Device Ordered VTE Drug Contraindication: Treatment Not Indicated
--- NOTE | 2022-07-12 15:08 | PM.GICN ---
History of Present Illness Data of Consult Service Date: 07/12/22 Requesting physician: Rolo Gastelum Primary Care Provider: Tianna Stern MD HPI Reason for consult: GI Bleeding 57 YM seen at [facility] on 07/02/2022 with complaints of nausea vomiting and lower chest/midepigastric pain.? CT scan of abdomen pelvis was negative and patient was discharged home on PO ondansetron.? Pt reports worsening of abdominal pain over the past week Pain is 9/10 in intensity, constant and gets worse after eating solid food. Pt complains of nausea and had an episode on vomiting today containing streaks of blood.? About 3 days prior to presentation he started to develop black tardy stools - 1-2 times a day. Pt reports wt loss of 9 lbs over the past 2 weeks. Pt came to the ER today after he noted increased abdominal pain with some dizziness.? Chest x-ray was normal hemoglobin was stable.? Pt was admitted for GI evaluation Patient denies major cardiac or pulmonary problems, He admits to snoring and denies sleep apnea Denies problems with anesthesia in the past. Pt took an Aleve last week for abd pain and denies being on chronic anticoagulation. Pt denies smoking, ETOH or IVDA He admits to smoking Marijuana twice a day - non recently Pt is single, lives alone and has 4 children. 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 Pt reports FH of colon cancer in his maternal GF at age 75 yrs Patient denies known family history of colon polyps or other GI malignancies. PAST EGD/COLONOSCOPY: 11/2018 Pt had a colonoscopy and two medium sized adenomatous polyps were removed. FU colon was advised in 3 yrs 2018: Pt was seen at [facility] with abdominal pain and discharged on Prilosec, Sucralfate and Bentyl. 07/02/[address] SCAN SHOWED: 1.? No acute findings in the abdomen or pelvis. No inflammatory changes. 2.? Nonobstructing left upper pole renal calculus. ? Review of Systems Review of Systems: Admits to midsternal chest pain without associated cardiac symptoms Denies shortness of breath Admits to vomiting/nausea/diarrhea PMFSH Past Medical History Medical History Diverticulosis Encounter for physical examination Erectile dysfunction Hemorrhoids Mixed hyperlipidemia Family History Family History Father No problems noted. Mother Chronic mental illness Alzheimers disease Paternal Grandmother Cancer Maternal Uncle Cancer Paternal Aunt Cancer Paternal Uncle Colon cancer Sister Breast cancer Maternal Grandfather Colon cancer Paternal Grandfather Prostate cancer Family/Other Chronic mental illness Surgical History Surgical History History of inguinal hernia repair Social History Social History Housing: Apartment Alcohol intake: current Alcohol intake frequency: holidays/special occasions only Alcohol type: beer Patient Tobacco Use Status: Former Tobacco user Tobacco use type: Cigarette e-Cigarette/Vaping Use: Never Used Second Hand Smoke Exposure: No Use of substances other than those prescribed or required for medical reasons: Yes Substance Use Type: Marijuana Substance Use Frequency: Daily Are you DNR?: No Advance Directives: No Advance Directives Information Provided: Yes Nutrition Risks: No Nutritional Risk service: No Current occupational status: employed Current occupational exposures/hazards: No Cognitive needs: No Hearing needs: No Vision needs: No Meds Allergies Allergy/AdvReac Type Severity Reaction Status Date / Time No Known Allergies Allergy Verified 07/12/22 11:13 [No Known Allergies*] Active Medications: Current Medications Acetaminophen (Acetaminophen 325 Mg Tablet) 650 mg PO Q6H PRN PRN Reason: Pain, Mild (Pain Scale 1-3) Lactated Ringer's (Lr) 1,000 mls @ 100 mls/hr IVCONT .Q10H [facility] Ondansetron HCl (Ondansetron Hcl 4 Mg/2 Ml Vial) 4 mg IVPUSH Q8H PRN PRN Reason: Nausea and Vomiting Pantoprazole Sodium (Pantoprazole Sodium 40 Mg/10 Ml Vial) 40 mg IVPUSH Q12H [facility] Pharmacy Consult (Consult Rx Perform Med Rec) 1 each MISCELLANE ONCE PRN PRN Reason: Consult order Sodium Chloride (0.9 % Sodium Chloride Flush 3 Ml Syringe) 3 ml IVFLUSH QSHIFT [facility] Home Medications Medication Instructions Recorded Confirmed Last Taken Type atorvastatin 80 mg tablet 80 mg PO .BEDTIME Q48H 07/12/22 07/12/22 07/11/22 History ondansetron 4 mg disintegrating 4 mg PO Q8H PRN Nausea And Vomiting 07/12/22 07/12/22 07/12/22 History tablet Physical Exam Vital Signs: Vital Signs: Last Vital Signs Temp 98.2 F 07/12/22 12:42 Pulse 86 07/12/22 11:27 Resp 16 07/12/22 12:42 BP 145/90 H 07/12/22 12:42 Pulse Ox 99 07/12/22 12:42 O2 Del Method 07/12/22 12:42 BMI result Body Mass Index 20.0 Const: General: healthy appearing and no acute distress Nutritional Appearance: average body habitus Orientation/consciousness: patient oriented x3 Limitations: no limitations HEENT: Head: Yes normal to inspection Ears: hearing grossly normal bilaterally Eyes: Sclerae: sclerae normal Pupils: Equal, round and reactive pupils present Neck: Neck: Yes normal visual inspection Chest: Chest palpation & inspection: normal inspection of the chest Resp: Effort & Inspection: normal respiratory effort Auscultation: clear to auscultation bilaterally Cardio: Palpation: normal PMI Rate: regular rate Rhythm: regular rhythm Heart sounds: S1 normal heart sound present, S2 normal heart sound present and no murmurs GI: Palpation (GI): Soft to palpation, Tenderness to palpation present (GI) (Mild to moderate epigastric tenderness without rebound) and No hepatosplenomegaly present Auscultation: normal bowel sounds Rectal Exam - Male: Yes deferred Skin: General skin exam: no rashes or lesions noted Neuro: General: patient oriented x3, gait normal and moves all extremities Cranial nerves: Yes Equal, round and reactive pupils present Psych: Appearance: grossly normal Mental Status: mental status grossly normal Results Labs 07/12/22 12:09 07/12/22 12:09 Labs: Short CBC 07/12/22 Range/Units 12:09 WBC 13.0 H (4.8-10.8) X10*3/uL Hgb 12.7 L (14.0-18.0) g/dl Hct 36.9 L (42.0-52.0) % Plt Count 308 (160-400) X10*3/uL BMP 07/12/22 12:09 Sodium 139 Potassium 3.5 Chloride 102 Carbon Dioxide 27 BUN 20 H Creatinine 1.02 Calcium 9.5 Liver Function 07/12/22 Range/Units 12:09 Total Bilirubin 0.6 (0.0-1.0) mg/dL AST 14 (5-37) U/L ALT 17 (0-40) U/L Alkaline Phosphatase 68 (39-117) U/L Albumin 4.4 (3.5-5.0) g/dL Assessment and Plan (1) Acute GI bleeding: Status: Acute Plan 57 YM admitted to [facility] with symptoms of nausea, vomiting, lower chest/midepigastric pain for the past 10 days and black tardy stools for the past 3 days.? 07/02/22 CT scan of abdomen pelvis was negative.? Pain is 9/10 in intensity, constant and gets worse after eating solid food. Pt complains of nausea and had an episode on vomiting today containing streaks of blood.? - 1-2 times a day. Pt reports wt loss of 9 lbs over the past 2 weeks. UGI bleeding likely due to PUD, erosive esophagitis, gastritis or MW tear. RECOMMENDATIONS: 1. Agree with IV PPI and antiemetics. 2. Proceed with urgent upper endoscopy today. Endoscopy procedure and potential complications including bleeding, perforation, reaction to anesthetics and aspiration pneumonia were reviewed with the patient. Time Spent With Patient Time: Total time managing care of this patient today ____ minutes. Procedures Date of Service Date of Service: 07/12/22
--- NOTE | 2022-07-12 15:16 | PHA.MEDREC ---
Pharmacy Consult ? Medication Reconciliation Pharmacy has completed the medication reconciliation. Patient states that he started taking atorvastatin every other night at bedtime because of stomach irritation he thought was caused by the medication.
--- NOTE | 2022-07-12 16:05 | HO.ANESPROP2 ---
HPI - Anesthesia Eval Consult details Narrative: For EGD PMFSH Active Problems Active Problems: All Active Problems (Updated 07/12/22 @ 14:18 by Lamine Rodriguez MD) Peptic ulcer (Acute) Acute GI bleeding (Acute) Erectile dysfunction (Acute) Encounter for physical examination (Acute) Hemorrhoids (Acute) Diverticulosis (Acute) Mixed hyperlipidemia (Acute) Past Medical History Medical History Diverticulosis Encounter for physical examination Erectile dysfunction Hemorrhoids Mixed hyperlipidemia Family History Family History Father No problems noted. Mother Chronic mental illness Alzheimers disease Paternal Grandmother Cancer Maternal Uncle Cancer Paternal Aunt Cancer Paternal Uncle Colon cancer Sister Breast cancer Maternal Grandfather Colon cancer Paternal Grandfather Prostate cancer Family/Other Chronic mental illness Family history of problems with anesthesia: No Surgical History Surgical History History of inguinal hernia repair History of Problems with Anesthesia: No Social History Social History Housing: Apartment Alcohol intake: current Alcohol intake frequency: holidays/special occasions only Alcohol type: beer Patient Tobacco Use Status: Former Tobacco user Tobacco use type: Cigarette e-Cigarette/Vaping Use: Never Used Second Hand Smoke Exposure: No Substance Use Type: Marijuana Advance Directives: No Advance Directives Information Provided: Yes Nutrition Risks: No Nutritional Risk service: No Current occupational status: employed Current occupational exposures/hazards: No Cognitive needs: No Hearing needs: No Vision needs: No Meds Allergies Allergy/AdvReac Type Severity Reaction Status Date / Time No Known Allergies Allergy Verified 07/12/22 11:13 [No Known Allergies*] Active Medications: Current Medications Acetaminophen (Acetaminophen 325 Mg Tablet) 650 mg PO Q6H PRN PRN Reason: Pain, Mild (Pain Scale 1-3) Lactated Ringer's (Lr) 1,000 mls @ 100 mls/hr IVCONT .Q10H [facility] Ondansetron HCl (Ondansetron Hcl 4 Mg/2 Ml Vial) 4 mg IVPUSH Q8H PRN PRN Reason: Nausea and Vomiting Pantoprazole Sodium (Pantoprazole Sodium 40 Mg/10 Ml Vial) 40 mg IVPUSH Q12H [facility] Pharmacy Consult (Consult Rx Perform Med Rec) 1 each MISCELLANE ONCE PRN PRN Reason: Consult order Sodium Chloride (0.9 % Sodium Chloride Flush 3 Ml Syringe) 3 ml IVFLUSH QSHIFT [facility] Home Medications Medication Instructions Recorded Confirmed Last Taken Type atorvastatin 80 mg tablet 80 mg PO .BEDTIME Q48H 07/12/22 07/12/22 07/11/22 History ondansetron 4 mg disintegrating 4 mg PO Q8H PRN Nausea And Vomiting 07/12/22 07/12/22 07/12/22 History tablet Exam Exam Date and Time: July 12, 2022 1605 Height,Weight and Vital Signs: Height 5 ft 5 in Weight 54.5 kg Last Vital Signs Temp 98.2 F 07/12/22 12:42 Pulse 86 07/12/22 11:27 Resp 16 07/12/22 12:42 BP 145/90 H 07/12/22 12:42 Pulse Ox 99 07/12/22 12:42 O2 Del Method 07/12/22 12:42 Pertinent Lab Results Pertinent Lab Results: Laboratory Tests 07/12/22 07/12/22 07/12/22 12:09 12:09 12:09 WBC 13.0 H RBC 4.23 L Hgb 12.7 L Hct 36.9 L MCV 87.2 MCH 30.0 MCHC 34.4 RDW 13.2 Plt Count 308 MPV 9.9 Immature Gran % (Auto) 0.5 H Neut % (Auto) 80.3 H Lymph % (Auto) 9.4 L King % (Auto) 9.4 Eos % (Auto) 0.1 Baso % (Auto) 0.3 Lymph # (Auto) 1.2 King # (Auto) 1.2 Eos # (Auto) 0.0 Baso # (Auto) 0.0 Abs Immat Gran (auto) 0.07 H Absolute Neuts (auto) 10.5 H Absolute Nucleated RBC 0.000 Nucleated RBC % (auto) 0.0 Sodium 139 Potassium 3.5 Chloride 102 Carbon Dioxide 27 Anion Gap 14 BUN 20 H Creatinine 1.02 Estim Creat Clear Calc 63.0 Estimated GFR > 60 Random Glucose 117 H Calcium 9.5 Magnesium 2.2 Total Bilirubin 0.6 AST 14 ALT 17 Alkaline Phosphatase 68 Troponin I High Sens B-Natriuretic Peptide < 10 Total Protein 6.5 Albumin 4.4 COVID-19 ([facility]) COVID-19 DoubleRecall Com Blood Type Antibody Screen 07/12/22 07/12/22 07/12/22 12:09 12:09 13:43 WBC RBC Hgb Hct MCV MCH MCHC RDW Plt Count MPV Immature Gran % (Auto) Neut % (Auto) Lymph % (Auto) King % (Auto) Eos % (Auto) Baso % (Auto) Lymph # (Auto) King # (Auto) Eos # (Auto) Baso # (Auto) Abs Immat Gran (auto) Absolute Neuts (auto) Absolute Nucleated RBC Nucleated RBC % (auto) Sodium Potassium Chloride Carbon Dioxide Anion Gap BUN Creatinine Estim Creat Clear Calc Estimated GFR Random Glucose Calcium Magnesium Total Bilirubin AST ALT Alkaline Phosphatase Troponin I High Sens < 3.5 < 3.5 B-Natriuretic Peptide Total Protein Albumin COVID-19 (KENA[facility]) Negative COVID-19 [employer] See Note Blood Type Antibody Screen 07/12/22 13:43 WBC RBC Hgb Hct MCV MCH MCHC RDW Plt Count MPV Immature Gran % (Auto) Neut % (Auto) Lymph % (Auto) King % (Auto) Eos % (Auto) Baso % (Auto) Lymph # (Auto) King # (Auto) Eos # (Auto) Baso # (Auto) Abs Immat Gran (auto) Absolute Neuts (auto) Absolute Nucleated RBC Nucleated RBC % (auto) Sodium Potassium Chloride Carbon Dioxide Anion Gap BUN Creatinine Estim Creat Clear Calc Estimated GFR Random Glucose Calcium Magnesium Total Bilirubin AST ALT Alkaline Phosphatase Troponin I High Sens B-Natriuretic Peptide Total Protein Albumin COVID-19 (KENAN) COVID-19 [employer]Recall Com Blood Type O Positive Antibody Screen NEGATIVE Narrative Narrative: Subacute UGI bleed. Airway Mallampati Class: I TM Dist: >3cm Neck ROM: Full Denture: Upper Heart: OK Lungs: OK Assessment and Plan Assessment Anesthesia Assessment: Anesthesia Plan Discussed and Chart Reviewed Final Anesthetic Review Family History of Problems with Anesthesia: No History of Problems with Anesthesia: No NPO: Yes ASA Class: III and Emergency Final Preanesthetic Review: No Changes in Pt Med Stat, Meds/Allgs Chart Reviewed, Consent Obtained/Reviewed and Anes Risks/Benef Reviewed Patient Risk: Intermediate Procedure Risk: Intermediate Anesthetic Plan Anesthetic Plan: MAC: and Agree w/ Assess. and Plan Disposition: Standard PACU
--- NOTE | 2022-07-12 16:19 | PM.OP ---
Brief Operative Note Date of Service: 07/12/22 Pre-op diagnosis: Abdominal pain, UGI bleeding Post-op diagnosis: other (Gastric antral ulcer, large ulcer at Cardia) Procedure: FLEXIBLE TRANSORAL UPPER GASTROINTESTINAL ENDOSCOPY WITH BIOPSIES Surgeon: Deysi Ross MD Anesthesia: MAC Was an Car Cleaning Supervisor used for this Procedure?: Yes Car Cleaning Supervisor: Jessica Del Angel Estimated blood loss (mL): 1 Pathology: other (A: GASTRIC ANTRUM BXS R/O H. PYLORI B: ULCER OF THE CARDIA BXS R/O MALIGNANCY.) Condition: stable Disposition: PACU
--- NOTE | 2022-07-12 16:43 | W.PM.OPN ---
Operative Note Operative Note Date of Service: 07/12/22 Narrative: Pre-op diagnosis: Abdominal pain, UGI bleeding Post-op diagnosis:?other (Gastric antral ulcer, large ulcer at Cardia) Surgeon: Deysi Ross MD Anesthesia:?MAC FLEXIBLE TRANSORAL UPPER GASTROINTESTINAL ENDOSCOPY WITH BIOPSIES Consent: Indications for the procedure and potential complications of bleeding, perforation, reaction to medications and missed diagnosis were discussed with the patient and informed consent was obtained. Instrument: Olympus GIF H 190 mid size upper endoscope Monitoring: Vital signs and clinical assessment, continuous EKG monitoring, Pulse oximetry, Carbon Dioxide monitoring and blood pressure monitoring were done throughout the procedure. Procedure: The patient was placed in the left lateral decubitis position and pre-procedure medications were administered and a bite block was placed. The endoscope was inserted into the mouth and advanced under direct vision to the third part of duodenum. A careful inspection was made as the upper endoscope was withdrawn including a retroflexed examination of the proximal stomach; Findings and interventions are described below. Findings: Larynx: Normal Esophagus: GE junction at 42 cms. No esophagitis or Gross's. Stomach: A large deep 3 cms X 4 cms ulcer crater noted at the cardia with a few red spots without active bleeding just distal to GEJ from 43 to 46 cms - biopsies obtained. Moderate diffuse gastric erythema with a 5-6 mm superficial non-bleeding ulcer at the antrum. Antral biopsies were obtained to check for H pylori. Grade 2 flap valve on retroflexed examination of the cardia. Duodenum: Edematous folds in the proximal bulb and normal bulb and descending duodenum Intervention: Biopsies as noted above Impression and Post Procedure Diagnosis: Endoscopy Findings: STOMACH: A large deep 3 cms x 4 cms ulcer crater noted at the cardia with a few red spots without active bleeding just distal to GEJ from 43 to 46 cms - biopsies obtained. Moderate diffuse gastric erythema with a 5-6 mm superficial non-bleeding ulcer at the antrum. Antral biopsies were obtained to check for H pylori. DUODENUM: Edematous folds in the proximal bulb and normal bulb and descending duodenum No blood seen in the upper GI tract during upper endoscopy. Black stools likely from large ulcer at cradia - worrisome for malignancy. Plan: Repeat CBC in the am Chest and abdominal CT scan with IV and PO contrast. Check CEA - added to am labs. If biopsies are positive for malignancy, pt will need further evaluation with endoscopic ultrasound and Oncology consultation If biopsies are negative for malignancy, repeat EGD in 6 to 8 weeks to confirm gastric ulcer has healed Above findings were reviewed with the patient. ADDENDUM: BIOPSIES SHOWED: A.? Stomach, antrum, biopsy: - Antral-type mucosa with severe chronic active inflammation. - Positive for H pylori. B.? Stomach, cardia ulcer, biopsy: - Cardiac-type mucosa with severe chronic active inflammation and regenerative changes. - Positive for H pylori. CEA was normal 07/13/[address] SCAN WITH CONTRAST SHOWED: 1. Prominent wall thickening of the gastric fundus, increased when compared to the prior examination. No significant enhancement. Findings could indicate acute gastritis. No pneumatosis or evidence of perforation. 2. No intra-abdominal mass, lymphadenopathy, or ascites. 3. No hydronephrosis or nephrolithiasis. Previously seen left upper pole renal stone is not well visualized, likely related to contrast. 4. Prominent prostatomegaly with central calcifications, unchanged. 5. No pulmonary nodule, mass, or confluent airspace consolidation.
[2022-07-12] MEDS: 0.9 % Sodium Chloride Flush 3 ML SYRINGE IVFLUSH (17:16)
[2022-07-12] MEDS: Lactated Ringers 1,000 ML 100 ML IVCONT (17:28)
[2022-07-13] VITALS: BP 107/62; PULSE 98; RESP 18; TEMP 37.1; O2SAT 97
[2022-07-13] MEDS: Lactated Ringers 1,000 ML 100 ML IVCONT (03:59)
[2022-07-13] MEDS: Pantoprazole Sodium 40 MG/10 ML VIAL IVPUSH ×2 (03:59→14:54)
[2022-07-13 05:47] LABS: MANUAL DIFF FLAG NO
[2022-07-13 05:52] LABS: Basophils Percent Auto 0.5 % (0-2); Eosinophils Absolute Auto 0.1 X10*3/uL (0.0-0.4); Eosinophils Percent Auto 1.3 % (0-4); Hematocrit 31.6 % (42.0-52.0); Hemoglobin 10.6 g/dl (14.0-18.0); Imm Gran Abs Auto 0.03 X10*3/uL (0.00-0.03); Imm Gran Pct Auto 0.3 % (0.0-0.4); Lymphocytes Absolute Auto 2.3 X10*3/uL (1.2-4.9); Lymphocytes Percent Auto 26.4 % (20-40); Mean Corpuscular HGB Conc 33.5 g/dl (31.0-36.0); Mean Corpuscular Hemoglobin 29.5 pg (27.0-33.0); Mean Platelet Volume 10.3 fL (9.4-12.4); Monocytes Absolute Auto 0.7 X10*3/uL (0.1-1.2); Monocytes Percent Auto 8.3 % (2-11); Neutrophils Absolute Auto 5.4 x10*3/uL (2.0-8.3); Neutrophils Percent Auto 63.2 % (45-73); Platelet Count 271 X10*3/uL (160-400); Red Blood Count 3.59 X10*6/uL (4.60-5.80); Red Cell Distribution Width 13.2 % (11.0-16.0); White Blood Count 8.6 X10*3/uL (4.8-10.8)
[2022-07-13 06:07] LABS: Alanine Aminotransferase 13 U/L (0-40); Albumin Level 3.5 g/dL (3.5-5.0); Alkaline Phosphatase 54 U/L (39-117); Anion Gap 11 (12-20); Aspartate Amino Transferase 12 U/L (5-37); Bilirubin Total 0.5 mg/dL (0.0-1.0); Blood Urea Nitrogen 12 mg/dL (9-16); Calcium 8.5 mg/dL (8.4-10.2); Carbon Dioxide 26 mmol/L (22-29); Chloride 106 mmol/L (96-108); Creatinine Clr Calc Pharmacy 80.4; Estimated Glomerular Filt Rate > 60; Glucose Fasting 105 mg/dL (60-99); Potassium 4.4 mmol/L (3.3-5.1); Sodium 139 mmol/L (135-145); Total Protein 5.2 g/dL (6.5-8.0)
[2022-07-13 06:26] LABS: Carcinoembryonic Antigen < 1.73 ng/mL
[2022-07-13 08:00] VITALS: BP 100/65; PULSE 79; RESP 18; TEMP 36.7; O2SAT 96
--- NOTE | 2022-07-13 09:26 | HO.POSTANES ---
Post Anesthesia Evaluation Post Anesthesia Evaluation Vital Signs: Vital Signs Temp Pulse Resp BP Pulse Ox O2 Del Method 07/13/22 08:00 98.0 F 79 18 100/65 96 Room Air 07/13/22 00:00 98.8 F 98 18 107/62 97 Room Air Anesthesia: Monitored Mental Status: Awake Pain Control: Satisfactory Nausea/Vomiting: None Hydration: Adequate Anesthesia-Related Issues: No Anes. Related Issues
[2022-07-13] MEDS: iohexoL 350 MG/ML 100 ML INFUS..BTL IV (11:44)
[2022-07-13] MEDS: Barium Sulfate Oral (Mocha) 450 ML ORAL.SUSP 900 ML PO (11:46)
--- NOTE | 2022-07-13 12:48 | P.DS_ITS ---
DS: Providers Provider Date of Service: 07/13/22 Date of admission: 07/12/22 14:32 Date of discharge: 07/13/22 Primary care physician: Tianna Stern MD Consults: 07/12/22 14:39 Consult to Gastroenterology Routine Consulting Provider: Dallas Hassan Reason for consultation: GI Bleed Has provider been notified: No DS: Diagnosis Discharge Diagnosis (1) Acute GI bleeding: Status: Acute DS: Summary Hospital Course Hospital Course: 57-year-old male originally presented to the ER 07/02/2022 with complaints of nausea vomiting and midepigastric pain.? CT scan of abdomen pelvis failed to demonstrate acute pathology he was sent home on a PPI.? Over the course of the week, he states his abdominal pain got worse and was exacerbated by food.? About 3 days prior to presentation he started to develop black tardy stools.? Today he had significant abdominal pain along with some dizziness which prompted him to return to the ER.? CT scan was not repeated; chest x-ray is normal hemoglobin was stable.? Given his presentation he will be admitted for GI evaluation Hospital Course Admitted. Seen almost immediately by GI. EGD demonstrated a large deep ulcer crater at the cardia. Biopsies were taken. Subsequently a CT of the abdomen pelvis and chest with IV contrast was done which failed to demonstrate the presence of any adenopathy or liver lesions. At this point patient will be discharged on b.i.d. omeprazole and can follow-up with GI as an outpatient Time Spent with Patient Time attestation: Total time managing care of this patient today ____ minutes. Discharge coordination time: Greater than 30 minutes Quality: Safe Use of Opioids Does Pt have an Active Cancer Diagnosis on the Problem List?: No Quality: Stroke Does the patient have a stroke diagnosis?: No Physical Exam Vital Signs: Vital Signs: Last Vital Signs Temp 98.0 F 07/13/22 08:00 Pulse 79 07/13/22 08:00 Resp 18 07/13/22 08:00 BP 100/65 07/13/22 08:00 Pulse Ox 96 07/13/22 08:00 O2 Del Method 07/13/22 08:00 BMI result Body Mass Index 20.0 Const: Other: Awake alert no acute distress Resp: Other: Clear to auscultation bilaterally no rales rhonchi wheezes Cardio: Other: No S4; positive S1-S2; no S3 murmurs rubs or gallops GI: Other: Soft nontender nondistended normoactive bowel sounds Neuro: Other: Cranial nerves 2-12 grossly intact as tested. Motor is 5/5 all extremities. Sensation intact. Cognition appropriate Extrem: Other: No edema bilaterally DS: Data Data Completed and Pending Pending studies at discharge: Pending at discharge 07/12/22 16:31 Surgical [PTH] Routine Labs on day of discharge: Laboratory Results - last 24 hr 07/12/22 07/12/22 07/13/22 13:43 13:43 05:01 WBC 8.6 RBC 3.59 L Hgb 10.6 L Hct 31.6 L MCV 88.0 MCH 29.5 MCHC 33.5 RDW 13.2 Plt Count 271 MPV 10.3 Immature Gran % (Auto) 0.3 Neut % (Auto) 63.2 Lymph % (Auto) 26.4 [place] % (Auto) 8.3 Eos % (Auto) 1.3 Baso % (Auto) 0.5 Lymph # (Auto) 2.3 [place] # (Auto) 0.7 Eos # (Auto) 0.1 Baso # (Auto) 0.0 Abs Immat Gran (auto) 0.03 Absolute Neuts (auto) 5.4 Absolute Nucleated RBC 0.000 Nucleated RBC % (auto) 0.0 Sodium Potassium Chloride Carbon Dioxide Anion Gap BUN Creatinine Estim Creat Clear Calc Estimated GFR Fasting Glucose Calcium Total Bilirubin AST ALT Alkaline Phosphatase Troponin I High Sens < 3.5 Total Protein Albumin Carcinoembryonic Ag Blood Type O Positive Antibody Screen NEGATIVE 07/13/22 07/13/22 05:01 05:01 WBC RBC Hgb Hct MCV MCH MCHC RDW Plt Count MPV Immature Gran % (Auto) Neut % (Auto) Lymph % (Auto) [place] % (Auto) Eos % (Auto) Baso % (Auto) Lymph # (Auto) [place] # (Auto) Eos # (Auto) Baso # (Auto) Abs Immat Gran (auto) Absolute Neuts (auto) Absolute Nucleated RBC Nucleated RBC % (auto) Sodium 139 Potassium 4.4 D Chloride 106 Carbon Dioxide 26 Anion Gap 11 L BUN 12 Creatinine 0.80 Estim Creat Clear Calc 80.4 Estimated GFR > 60 Fasting Glucose 105 H Calcium 8.5 D Total Bilirubin 0.5 AST 12 ALT 13 Alkaline Phosphatase 54 Troponin I High Sens Total Protein 5.2 L Albumin 3.5 Carcinoembryonic Ag < 1.73 Blood Type Antibody Screen Discharge Plan Discharge Anticipated Discharge Date/Time: 07/13/22 12:44 Patient Disposition: Home, Self-Care Discharge Diagnosis: Gastric ulcer Referrals: Tianna Alvarado MD [Primary Care Provider] - 1 Week Discharge Medications: New omeprazole 40 mg capsule,delayed release(DR/EC) 40 mg PO BID Qty: 60 3RF Continued ondansetron 4 mg tablet,disintegrating 4 mg PO Q8H PRN (Reason: Nausea And Vomiting) atorvastatin 80 mg tablet 80 mg PO .BEDTIME Q48H fenofibrate 54 mg tablet 54 mg PO DAILY 90 Days Qty: 90 1RF Discharge Orders: Discharge Order (Routine); Ordered 07/13/22 Ordered By: Rolo Gastelum Diet: Advance to usual diet Activity on Discharge: As tolerated Stand Alone Forms: Patient Portal Discharge page Care Plan Goals: You need to start omeprazole 40 mg twice daily and continuing into you see Dr. Ross. Health Concerns: Any further bleeding return to ER Plan of Treatment: Follow-up with your PCP and Dr. Ross Assessment: See discharge summary
== END 2022-07-13 16:00 | disposition home or self-care (01) | DRG 241 ==
LOC: HO.ED 14:18 → HO.EDOVER 14:38 → HO.S3 14:41
PROVIDERS: Internal Medicine Gastroenterology; Physician Assistant Medical; Admitting Provider Hospitalist; Emergency Provider Emergency Medicine; PCP Internal Medicine; Visit Provider Hospitalist
PROC: 0DJ08ZZ Inspection of Upper Intestinal Tract, Via Natural or Artificial Opening Endoscopic (ICD-10-PCS; CPT 43235; principal; 2022-07-12 13:10)
DX: K25.4 Chronic or unspecified gastric ulcer with hemorrhage (principal); E78.2 Mixed hyperlipidemia; Z20.822 Contact with and (suspected) exposure to COVID-19; Z87.891 Personal history of nicotine dependence; Z79.899 Other long term (current) drug therapy
CPT/HCPCS: 36415; 71046; 71260; 74177; 80053; 82378; 83735; 83880; 84484; 85025; 86850; 86900; 86901; 87635; 88305; 88342; 93005; 99284; J3010; Q9967

== ENCOUNTER 2022-08-01 13:31 | Outpatient (REF) | payer BC, SELFPAY ==
[2022-08-01 15:37] LABS: Hematocrit 37.3 % (42.0-52.0); Hemoglobin 12.5 g/dl (14.0-18.0); Mean Corpuscular HGB Conc 33.5 g/dl (31.0-36.0); Mean Corpuscular Hemoglobin 29.8 pg (27.0-33.0); Mean Corpuscular Volume 88.8 fL (80.0-98.0); Mean Platelet Volume 10.4 fL (9.4-12.4); Platelet Count 192 X10*3/uL (160-400); Red Cell Distribution Width 14.2 % (11.0-16.0)
[2022-08-01 16:04] LABS: Alanine Aminotransferase 21 U/L (0-40); Albumin Level 3.7 g/dL (3.5-5.0); Alkaline Phosphatase 83 U/L (39-117); Anion Gap 9 (12-20); Aspartate Amino Transferase 24 U/L (5-37); Bilirubin Total 0.4 mg/dL (0.0-1.0); Blood Urea Nitrogen 16 mg/dL (9-16); Carbon Dioxide 30 mmol/L (22-29); Chloride 105 mmol/L (96-108); Cholesterol 108 mg/dL; Estimated Glomerular Filt Rate > 60; Glucose Fasting 96 mg/dL (60-99); HDL Cholesterol 30 mg/dL; LDL Cholesterol Calculated 61 mg/dl; Potassium 4.3 mmol/L (3.3-5.1); Sodium 140 mmol/L (135-145); Total Protein 5.7 g/dL (6.5-8.0); Triglycerides 86 mg/dL
[2022-08-01 16:19] LABS: PSA,Total (Free>4and<10) 0.35 ng/mL (0.00-4.00)
[2022-08-01 16:33] LABS: Ferritin 53 ng/mL (20-250); Folate 14.4 ng/mL (> or = 4.0); Vitamin B12 1105 pg/mL (200-900); Vitamin D 25-OH Total 11.1 ng/mL (>30)
== END 2022-08-01 13:32 | disposition home or self-care (01) ==
LOC: HO.LAB 13:31
PROVIDERS: Internal Medicine; PCP Physician Assistant; Referring Provider Physician Assistant; Visit Provider Internal Medicine Gastroenterology
DX: K21.01 Gastro-esophageal reflux disease with esophagitis, with bleeding (principal); K29.70 Gastritis, unspecified, without bleeding; E78.2 Mixed hyperlipidemia; B96.81 Helicobacter pylori [H. pylori] as the cause of diseases classified elsewhere; D50.0 Iron deficiency anemia secondary to blood loss (chronic); Z79.899 Other long term (current) drug therapy; Z12.5 Encounter for screening for malignant neoplasm of prostate; Z79.2 Long term (current) use of antibiotics; Z86.010 Personal history of colon polyps
CPT/HCPCS: 36415; 80053; 80061; 82306; 82607; 82728; 82746; 84153; 85027

== ENCOUNTER 2022-10-21 10:15 | Day surgery (SDC) | payer BC, SELFPAY ==
--- NOTE | 2022-10-18 10:43 | P.CONAN_ITS ---
Documented by User: Genesis Howell NP 10/18/22 10:44 HPI - Anesthesia Eval Consult details Narrative: 57yo M for Upper Endoscopy and Colonoscopy s/p EGD 06/2022 with [facility] Active Problems Active Problems: All Active Problems (Updated 08/05/22 @ 11:47 by Deysi Ross MD) Vitamin D deficiency (Acute) Iron deficiency anemia due to chronic blood loss (Acute) History of colon polyps (Acute) GERD (gastroesophageal reflux disease) (Acute) Helicobacter pylori gastritis (Acute) Erectile dysfunction (Acute) Encounter for physical examination (Acute) Hemorrhoids (Acute) Diverticulosis (Acute) Mixed hyperlipidemia (Acute) Past Medical History Medical History Diverticulosis Encounter for physical examination Erectile dysfunction Hemorrhoids Mixed hyperlipidemia Family History Family History Father No problems noted. Mother Chronic mental illness Alzheimers disease Paternal Grandmother Cancer Maternal Uncle Cancer Paternal Aunt Cancer Paternal Uncle Colon cancer Sister Breast cancer Maternal Grandfather Colon cancer Paternal Grandfather Prostate cancer Family/Other Chronic mental illness Family history of problems with anesthesia: No Surgical History Surgical History History of inguinal hernia repair History of Problems with Anesthesia: No Social History Social History Household Members: None Housing: Apartment Do you presently have visiting nurse or other home services: No Alcohol intake: current Alcohol intake frequency: holidays/special occasions only Alcohol type: beer Patient Tobacco Use Status: Former Tobacco user Quit Date: years ago Tobacco use type: Cigarette e-Cigarette/Vaping Use: Never Used Second Hand Smoke Exposure: No Use of substances other than those prescribed or required for medical reasons: Yes Substance Use Type: Marijuana Substance Use Type Other:: last at 0000 10/21/22 Are you DNR?: No Advance Directives: No Advance Directives Information Provided: Yes service: No Current occupational status: employed Current occupational exposures/hazards: No Cognitive needs: No Hearing needs: No Vision needs: No Meds Allergies Allergy/AdvReac Type Severity Reaction Status Date / Time No Known Allergies Allergy Verified 08/01/22 13:46 [No Known Allergies*] Home Medications Medication Instructions Recorded Confirmed Last Taken Type atorvastatin 80 mg tablet 80 mg PO .BEDTIME Q48H 07/12/22 10/21/22 07/11/22 History Exam Exam Date and Time: October 18, 2022 1043 Pertinent Lab Results Pertinent Lab Results: Laboratory Tests 08/01/22 08/01/22 14:59 14:59 WBC 3.0 L Hgb 12.5 L Hct 37.3 L Plt Count 192 D Sodium 140 Potassium 4.3 Chloride 105 Carbon Dioxide 30 H BUN 16 Creatinine 0.82 Narrative Narrative: EKG 06/2022 Vent. Rate : 095 BPM ? ? Atrial Rate : 095 BPM ?? P-R Int : 118 ms? QRS Dur : 090 ms ? ? QT Int : 330 ms ? ? ? P-R-T Axes : 081 035 072 degrees ?? QTc Int : 414 ms ? Normal sinus rhythm Normal ECG When compared with ECG of 04-JUN-2017 16:44, No significant change was found Assessment and Plan Assessment Anesthesia Assessment: Chart Reviewed Final Anesthetic Review Family History of Problems with Anesthesia: No History of Problems with Anesthesia: No Documented by User: Cheryl Rudd MD 10/21/22 11:00 [facility] Past Medical History Medical History Diverticulosis Encounter for physical examination Erectile dysfunction Hemorrhoids Mixed hyperlipidemia Family History Family History Father No problems noted. Mother Chronic mental illness Alzheimers disease Paternal Grandmother Cancer Maternal Uncle Cancer Paternal Aunt Cancer Paternal Uncle Colon cancer Sister Breast cancer Maternal Grandfather Colon cancer Paternal Grandfather Prostate cancer Family/Other Chronic mental illness Surgical History Surgical History History of inguinal hernia repair Social History Social History Household Members: None Housing: Apartment Do you presently have visiting nurse or other home services: No Alcohol intake: current Alcohol intake frequency: holidays/special occasions only Alcohol type: beer Patient Tobacco Use Status: Former Tobacco user Quit Date: years ago Tobacco use type: Cigarette e-Cigarette/Vaping Use: Never Used Second Hand Smoke Exposure: No Use of substances other than those prescribed or required for medical reasons: Yes Substance Use Type: Marijuana Substance Use Type Other:: last at 0000 10/21/22 Are you DNR?: No Advance Directives: No Advance Directives Information Provided: Yes service: No Current occupational status: employed Current occupational exposures/hazards: No Cognitive needs: No Hearing needs: No Vision needs: No Meds Allergies Allergy/AdvReac Type Severity Reaction Status Date / Time No Known Allergies Allergy Verified 08/01/22 13:46 [No Known Allergies*] Home Medications Medication Instructions Recorded Confirmed Last Taken Type atorvastatin 80 mg tablet 80 mg PO .BEDTIME Q48H 07/12/22 10/21/22 07/11/22 History Exam Airway Mallampati Class: II TM Dist: >3cm Neck ROM: Full Partial: Upper Heart: rrr Lungs: cta Assessment and Plan Assessment Anesthesia Assessment: Anesthesia Plan Discussed Final Anesthetic Review NPO: Yes ASA Class: II Final Preanesthetic Review: No Changes in Pt Med Stat, Meds/Allgs Chart Reviewed and Consent Obtained/Reviewed Patient Risk: Intermediate Procedure Risk: Intermediate Anesthetic Plan Anesthetic Plan: MAC: Disposition: Standard PACU
[2022-10-21 10:35] VITALS: BMI 23.0
[2022-10-21 10:38] VITALS: BP 102/73; PULSE 67; RESP 18; TEMP 36.4; O2SAT 97
[2022-10-21] MEDS: Lactated Ringers 1,000 ML 100 ML IVCONT (10:54)
--- NOTE | 2022-10-21 11:03 | MHC.SHP ---
Pre-Procedural Eval Section A Date of Service: 10/21/22 The patient is an INPATIENT: No The History & Physical has been completed within 30 days and I have reviewed it.: No Section B Chief Complaint: screening, fu of colon polyps, FU of gastric ulcer Relevant Family History (Specify if Yes): Yes Relevant Social History: Tobacco Use (Former smoker) Present Medications: see Short Stay Collaborative assessment Medical History: Significant History (Diverticulosis Encounter for physical examination Erectile dysfunction Hemorrhoids Mixed hyperlipidemia) History of Previous Operations: Relevant previous surgery/procedure and date(s) (History of inguinal hernia repair) Allergies: Allergies Allergy/AdvReac Type Severity Reaction Status Date / Time No Known Allergies Allergy Verified 08/01/22 13:46 [No Known Allergies*] Review of Systems Sugical H&P ROS: Negative: Constitution, Cardiovascular, Respiratory and Gastrointestinal Exam Surgical H&P Exam: Normal: Heart, Normal: Lungs, Normal: Extremities and Normal: Abdomen Plan Diagnosis/Plan: Unchanged I have reviewed the history and physical and performed a pertinent physical examination on my patient. No changes have occurred unless specified. Time Spent With Patient Time: Total time managing care of this patient today ____ minutes.
--- NOTE | 2022-10-21 12:00 | W.PM.OPN ---
Operative Note Operative Note Date of Service: 10/21/22 Narrative: FLEXIBLE TRANSORAL UPPER GASTROINTESTINAL ENDOSCOPY WITH BIOPSIES AND COLONOSCOPY TILL CECUM WITH BIOPSIES AND SNARE POLYPECTOMY Pre-op diagnosis: FU of gastric ulcer Post-op diagnosis: Gastritis, healed gastric ulcer Endoscopist:? Deysi Ross MD Anesthesia:?MAC UPPER ENDOSCOPY Consent: Indications for the procedure and potential complications of bleeding, perforation, reaction to medications and missed diagnosis were discussed with the patient and informed consent was obtained. Instrument: Olympus GIF H 190 mid size upper endoscope Monitoring: Vital signs and clinical assessment, continuous EKG monitoring, Pulse oximetry, Carbon Dioxide monitoring and blood pressure monitoring were done throughout the procedure. Procedure: The patient was placed in the left lateral decubitis position and pre-procedure medications were administered and a bite block was placed. The endoscope was inserted into the mouth and advanced under direct vision to the third part of duodenum. A careful inspection was made as the upper endoscope was withdrawn including a retroflexed examination of the proximal stomach; Findings and interventions are described below. Findings: Larynx: Normal Esophagus: GE junction at 40 cms. No esophagitis or Gross's. Stomach: Mild gastric erythema. Biopsies were obtained. Healed gastric ulcer and Grade 2 flap valve on retroflexed examination of the cardia. Duodenum: Normal bulb and descending duodenum Intervention: Biopsies as noted above COLONOSCOPY PROCEDURE NOTE Consent: Indications for the procedure and potential complications of bleeding, perforation, reaction to medications and missed diagnosis were discussed with the patient and informed consent was obtained. Instrument: Olympus PCF H 190 L variable stiffness pediatric colonoscope Monitoring: Vital signs and clinical assessment, intermittent blood pressure monitoring, continuous EKG monitoring, Pulse oximetry and Carbon Dioxide monitoring were done throughout the procedure. Colon withdrawl time was 13 minutes. Procedure: The patient was placed in the left lateral decubitis position and pre-procedure medications were administered. After a digital rectal examination of the ano-rectum, the video colonoscope was inserted into the rectum and advanced through the colon to the cecum. The colonoscope was slowly withdrawn in a retrograde panoramic fashion and the colon mucosa was carefully examined including a retroflexed view of the rectum. Findings and interventions are described below. Procedure Difficulty: : Without difficulty Findings: Terminal Ileum: Not evaluated Cecum: Normal Ascending Colon: Normal Transverse Colon: Normal Descending Colon: Moderate diverticulosis Sigmoid Colon: A 7-8 mm sessile polyp removed with a cold snare and polyp was not retrieved. Moderate diverticulosis Rectum: A 2 cms multi-lobed polyp in the distal rectum - removed with a hot snare Ano-rectum: Moderate internal hemorrhoids Colon preparation: Excellent Impression and Post Procedure Diagnosis: Endoscopy Findings: STOMACH: Mild gastric erythema. Biopsies were obtained. Healed gastric ulcer and Grade 2 flap valve on retroflexed examination of the cardia. Colonoscopy Findings: One medium sized and one small polyps removed (small polyp was not retrieved) Moderate diverticulosis seen in the left colon Moderate hemorrhoids on retroflexed exam. Plan: Await pathology results Patient has an appointment on 11/07/22 in the GI Clinic with Deysi Ross M.D.. Repeat Colonoscopy interval based on path results - in 3 years if polyps are adenomatous and 10 years if polyps are hyperplastic. (If rectal polyp shows advanced histology - then repeat flex sig in 3 - 6 months to check polypectomy site) Above findings were reviewed with the patient and colon polyps handout was given in the discharge area
[2022-10-21 12:40] VITALS: BP 99/56; PULSE 63; RESP 18; TEMP 36.1; O2SAT 100
[2022-10-21 12:55] VITALS: BP 128/80; PULSE 75; RESP 18; TEMP 36.1; O2SAT 99
== END 2022-10-21 13:15 | disposition home or self-care (01) ==
PROVIDERS: PCP Physician Assistant; Visit Provider Internal Medicine Gastroenterology
PROC: (CPT 45385; principal; 2022-10-21 11:50)
DX: Z12.11 Encounter for screening for malignant neoplasm of colon (principal); Z86.010 Personal history of colon polyps; D12.8 Benign neoplasm of rectum; K57.30 Diverticulosis of large intestine without perforation or abscess without bleeding; K64.8 Other hemorrhoids; K25.9 Gastric ulcer, unspecified as acute or chronic, without hemorrhage or perforation; K29.50 Unspecified chronic gastritis without bleeding; K21.9 Gastro-esophageal reflux disease without esophagitis; E78.2 Mixed hyperlipidemia; N52.9 Male erectile dysfunction, unspecified; Z79.899 Other long term (current) drug therapy; Z87.891 Personal history of nicotine dependence
CPT/HCPCS: 45385; 43239; 88305; 88342

== ENCOUNTER 2022-11-07 09:25 | Outpatient (AMB) | payer BC, SELFPAY ==
--- NOTE | 2022-11-07 09:34 | MHC.OFFVIS ---
Intake Vital Signs 11/07/22 09:36 Height 5 ft 5 in Weight 130 lb BMI 21.6 BP 112/71 Blood Pressure Location Lt brachial Position Sitting Pulse 86 Intake Visit Reasons: 3 month fu Intake Note: Patient follow up for GERD, lab and Colonoscopy/ EGD results. Patient denies any GI issues, patient needed GERD medication. 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 No acute findings in the abdomen or pelvis. No inflammatory changes. 2.? Nonobstructing left upper pole renal calculus. ENDOSCOPIC STUDIES: 10/21/22 EGD AND COLON SHOWED: Endoscopy Findings: STOMACH: Mild gastric erythema. Biopsies were obtained. Healed gastric ulcer and Grade 2 flap valve on retroflexed examination of the cardia. Colonoscopy Findings: One medium sized and one small polyps removed (small polyp was not retrieved) Moderate diverticulosis seen in the left colon Moderate hemorrhoids on retroflexed exam. Plan: Repeat Colonoscopy interval based on path results - in 3 years if polyps are adenomatous and 10 years if polyps are hyperplastic. (If rectal polyp shows advanced histology - then repeat flex sig in 3 - 6 months to check polypectomy site) 07/12/22 EGD SHOWED STOMACH:? A large deep 3 cms x 4 cms ulcer crater noted at the cardia with a few red spots without active bleeding just distal to GEJ from 43 to 46 cms - biopsies obtained. Moderate diffuse gastric erythema with a 5-6 mm superficial non-bleeding ulcer at the antrum. Antral biopsies were obtained to check for H pylori. DUODENUM: Edematous folds in the proximal bulb and normal bulb and descending duodenum No blood seen in the upper GI tract during upper endoscopy. Black stools likely from large ulcer at cardia - worrisome for malignancy. Plan:? Repeat CBC in the am Chest and abdominal CT scan with IV and PO contrast. Check CEA - added to am labs. If biopsies are positive for malignancy, pt will need further evaluation with? endoscopic ultrasound and Oncology consultation If biopsies are negative for malignancy, repeat EGD in 6 to 8 weeks to confirm gastric ulcer has healed Above findings were reviewed with the patient. ADDENDUM: BIOPSIES SHOWED: A.? Stomach, antrum, biopsy: - Antral-type mucosa with severe chronic active inflammation. - Positive for H pylori. B.? Stomach, cardia ulcer, biopsy: - Cardiac-type mucosa with severe chronic active inflammation and regenerative changes. - Positive for H pylori. CEA was normal 07/13/[address] SCAN WITH CONTRAST SHOWED: 1. Prominent wall thickening of the gastric fundus, increased when compared to the prior examination. No significant enhancement. Findings could indicate acute gastritis. No pneumatosis or evidence of perforation. 2. No intra-abdominal mass, lymphadenopathy, or ascites. 3. No hydronephrosis or nephrolithiasis. Previously seen left upper pole renal stone is not well visualized, likely related to contrast. 4. Prominent prostatomegaly with central calcifications, unchanged. 5. No pulmonary nodule, mass, or confluent airspace consolidation. TODAY'S VISIT: EGD and colon results reviewed He has been doing well PAST VISITS: Still has intermittent epigastric/lower chest pain 4/10 Feeling more hungry and getting his appetite back Taking antibiotics for H pylori - still has 4-5 more days. Patient denies major cardiac or pulmonary problems, He admits to snoring and denies sleep apnea Denies problems with anesthesia in the past. Pt took an Aleve last week for abd pain and denies being on chronic anticoagulation. 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 Pt reports FH of colon cancer in his maternal GF at age 77 yrs Patient denies known family history of colon polyps or other GI malignancies. PAST GI HISTORY BY REVIEW OF MEDICAL RECORDS: 07/12/22 patient was seen during recent hospitalization at [facility]: 57 YM seen at [facility] ED on 07/02/2022 with complaints of nausea vomiting and lower chest/midepigastric pain.? CT scan of abdomen pelvis was negative and patient was discharged home on PO ondansetron.? Pt reports worsening of abdominal pain over the past week Pain is 9/10 in intensity, constant and gets worse after eating solid food. Pt complains of nausea and had an episode on vomiting today containing streaks of blood.? About 3 days prior to presentation he started to develop black tardy stools - 1-2 times a day. Pt reports wt loss of 9 lbs over the past 2 weeks. Pt came to the ER today after he noted increased abdominal pain with some dizziness.? Chest x-ray was normal hemoglobin was stable.? Pt was admitted for GI evaluation PAST EGD/COLONOSCOPY: 11/2018 Pt had a colonoscopy and two medium sized adenomatous polyps were removed. FU colon was advised in 3 yrs 2018:? Pt was seen at [facility] ED with abdominal pain and discharged on Prilosec, Sucralfate and?bentyl PFSH Medical History (Updated 08/05/22 @ 11:47 by Deysi Ross MD) Diverticulosis Encounter for physical examination Erectile dysfunction Hemorrhoids Mixed hyperlipidemia Peptic ulcer Surgical History History of esophagogastroduodenoscopy (EGD) History of inguinal hernia repair Hx of colonoscopy Family History Father No problems noted. Mother Chronic mental illness Alzheimers disease Paternal Grandmother Cancer Maternal Uncle Cancer Paternal Aunt Cancer Paternal Uncle Colon cancer Sister Breast cancer Maternal Grandfather Colon cancer Paternal Grandfather Prostate cancer Family/Other Chronic mental illness Social History Household Members: None Housing: Apartment Do you presently have visiting nurse or other home services: No Alcohol intake: current Alcohol intake frequency: holidays/special occasions only Alcohol type: beer Patient Tobacco Use Status: Former Tobacco user Quit Date: years ago Tobacco use type: Cigarette e-Cigarette/Vaping Use: Never Used Second Hand Smoke Exposure: No Substance Use Type: Marijuana service: No Current occupational status: employed Current occupational exposures/hazards: No Cognitive needs: No Hearing needs: No Vision needs: No Review of Systems Const All systems reviewed & are unremarkable except as noted in HPI and below Physical Exam Vital Signs: Last Vital Signs Pulse 86 11/07/22 09:36 BP 112/71 07/13/23 09:36 BMI result Body Mass Index 21.6 Const General: healthy appearing and no acute distress Nutritional Appearance: average body habitus Orientation/consciousness: patient oriented x3 Limitations: no limitations HEENT Head: Yes normal to inspection Ears: hearing grossly normal bilaterally Eyes Sclerae: sclerae normal Pupils: Equal, round and reactive pupils present Neck Neck: Yes normal visual inspection Chest Chest palpation & inspection: normal inspection of the chest Resp Effort & Inspection: normal respiratory effort Auscultation: clear to auscultation bilaterally Cardio Palpation: normal PMI Rate: regular rate Rhythm: regular rhythm Heart sounds: S1 normal heart sound present, S2 normal heart sound present and no murmurs GI Palpation (GI): Soft to palpation, nontender and No hepatosplenomegaly present Auscultation: normal bowel sounds Rectal Exam - Male: Yes deferred Skin General skin exam: no rashes or lesions noted Neuro General: patient oriented x3, gait normal and moves all extremities Cranial nerves: Yes Equal, round and reactive pupils present Psych Appearance: grossly normal Mental Status: mental status grossly normal Assessment & Plan Assessment & Plan (1) GERD (gastroesophageal reflux disease): Code(s): K21.9 - Gastro-esophageal reflux disease without esophagitis Qualifiers: Esophagitis presence: with esophagitis Esophagitis bleeding: with hemorrhage Qualified Code(s): K21.01 - Gastro-esophageal reflux disease with esophagitis, with bleeding Plan 57 YM hospitalized at [facility] 07/12/22 with nausea, vomiting, lower chest/midepigastric pain and black tardy stools.? 07/02/22 CT scan of abdomen pelvis was negative.? Pt reported wt loss of 9 lbs over the past 2 weeks. EGD was performed and findings as noted above Pt was prescribed antibiotics (quadruple therapy) for H pylori detected on gastric biopsy 09/2022 EGD (FU of gastric ulcer) with same-day colonoscopy (FU of colon polyps) were performed and results as noted above. He was advised to decrease omeprazole to 40 mg once a day. FU in 6 months Medications: New cholecalciferol (vitamin D3) 50 mcg PO DAILY 90 days 90 caps 1RF Changed From omeprazole 40 mg PO BID 60 caps 3RF K21.9 - Gastro-esophageal reflux disease without esophagitis To omeprazole 40 mg PO DAILY 90 days 90 caps 1RF K21.9 - Gastro-esophageal reflux disease without esophagitis Coding Level of Care Code Est Pt Level 3 (44803) Diagnoses GERD (gastroesophageal reflux disease) K21.01 Esophagitis presence: with esophagitis Esophagitis bleeding: with hemorrhage Time Spent (min) 18
[2022-11-07 09:36] VITALS: BP 112/71; PULSE 86; BMI 21.6
== END 2022-11-07 10:50 | disposition home or self-care (01) ==
PROVIDERS: PCP Physician Assistant; Visit Provider Internal Medicine Gastroenterology
DX: K21.01 Gastro-esophageal reflux disease with esophagitis, with bleeding (principal)
CPT/HCPCS: 99213

== ENCOUNTER → 2022-11-07 09:25 | Outpatient (BNVA) | payer BC, SELFPAY | PROVIDERS: PCP Physician Assistant; Visit Provider Internal Medicine Gastroenterology ==

== ENCOUNTER 2023-05-08 10:16 | Outpatient (AMB) | payer BC, SELFPAY ==
[2023-05-08 10:21] VITALS: BP 104/71; PULSE 79; BMI 22.0
--- NOTE | 2023-05-08 10:21 | A.OFFVIS_ITS ---
Intake Vital Signs 05/08/23 10:21 Height 5 ft 5 in Weight 132 lb BMI 22.0 BP 104/71 Blood Pressure Location Lt brachial Position Sitting Pulse 79 Intake Visit Reasons: 6 month follow up Intake Note: Patient follow up for GERD. Patient denies any GI issues. 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 (07/12 TO 07/13/22) for GI bleeding and anemia 07/02/[address] SCAN SHOWED: 1.? No acute findings in the abdomen or pelvis. No inflammatory changes. 2.? Nonobstructing left upper pole renal calculus. ENDOSCOPIC STUDIES: 10/21/22 EGD AND COLON SHOWED: Endoscopy Findings: STOMACH: Mild gastric erythema. Biopsies were obtained. Healed gastric ulcer and Grade 2 flap valve on retroflexed examination of the cardia. Colonoscopy Findings: One medium sized and one small polyps removed (small polyp was not retrieved) Moderate diverticulosis seen in the left colon Moderate hemorrhoids on retroflexed exam. Plan: Repeat Colonoscopy interval based on path results - in 3 years if polyps are adenomatous and 10 years if polyps are hyperplastic. (If rectal polyp shows advanced histolog y - then repeat flex sig in 3 - 6 months to check polypectomy site) 07/12/22 EGD SHOWED STOMACH:? A large deep 3 cms x 4 cms ulcer crater noted at the cardia with a few red spots without active bleeding just distal to GEJ from 43 to 46 cms - biopsies obtained. Moderate diffuse gastric erythema with a 5-6 mm superficial non-bleeding ulcer at the antrum. Antral biopsies were obtained to check for H pylori. DUODENUM: Edematous folds in the proximal bulb and normal bulb and descending duodenum No blood seen in the upper GI tract during upper endoscopy. Black stools likely from large ulcer at cardia - worrisome for malignancy. Plan:? Repeat CBC in the am Chest and abdominal CT scan with IV and PO contrast. Check CEA - added to am labs. If biopsies are positive for malignancy, pt will need further evaluation with? endoscopic ultrasound and Oncology consultation If biopsies are negative for malignancy, repeat EGD in 6 to 8 weeks to confirm gastric ulcer has healed Above findings were reviewed with the patient. ADDENDUM: BIOPSIES SHOWED: A.? Stomach, antrum, biopsy: - Antral-type mucosa with severe chronic active inflammation. - Positive for H pylori. B.? Stomach, cardia ulcer, biopsy: - Cardiac-type mucosa with severe chroni c active inflammation and regenerative changes. - Positive for H pylori. CEA was normal 07/13/[address] SCAN WITH CONTR AST SHOWED: 1. Prominent wall thickening of the cristi luis fundus, increased when compared to the prior examination. No significant enhancement. Findings could indicate acute gastritis. No pneumatosis or evidence of perforation. 2. No intra-abdominal mass, lymphadenopa thy, or ascites. 3. No hydronephrosis or nephrolithiasis. Previously seen left upper pole renal stone is not well visualized, likely related to contrast. 4. Prominent prostatomegaly with central calcifications, unchanged. 5. No pulmonary nodule, mass, or conflue nt airspace consolidation. TODAY'S VISIT: He has been doing well Denies heartburn, dysphagia or abdominal pain. PAST VISITS: EGD and colon results reviewed Still has intermittent epigastric/lower chest pain 4/10 Feeling more hungry and getting his appetite back Taking antibiotics for H pylori - still has 4-5 more days. Patient denies major cardiac or pulmonary problems, He admits to snoring and denies sleep apnea Denies problems with anesthesia in the past. Pt took an Aleve last week for abd pain and denies being on chronic anticoagulation. 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 Pt reports FH of colon cancer in his maternal GF at age 77 yrs Patient denies known family history of colon polyps or other GI malignancies. PAST GI HISTORY BY REVIEW OF MEDICAL RECORDS: 07/12/22 patient was seen during recent h ospitalization at [facility]: 57 YM seen at [facility] ED on 07/02/2022 with co mplaints of nausea vomiting and lower chest/midepigastric pain.? CT scan of abdomen pelvis was negative and patient was discharged home on PO ondansetron.? Pt reports worsening of abdominal pain over the past week Pain is 9/10 in intensity, constant and gets worse after eating solid food. Pt complains of nausea and had an episode on vomiting today containing streaks of blood.? About 3 days prior to presentation he started to develop black tardy stools - 1- 2 times a day. Pt reports wt loss of 9 lbs over the past 2 weeks. Pt came to the ER today after he noted increased abdominal pain with some dizziness.? Chest x-ray was normal hemoglobin was stable.? Pt was admitted for GI evaluation PAST EGD/COLONOSCOPY: 11/2018 Pt had a colonoscopy and two medi um sized adenomatous polyps were removed. FU colon was advised in 3 yrs 2018:? Pt was seen at [facility] ED with abdomi nal pain and discharged on Prilosec, Sucralfate and?bentyl [facility] Medical History (Updated 08/05/22 @ 11:47 by Deysi Ross MD) Peptic ulcer Erectile dysfunction Encounter for physical examination Hemorrhoids Diverticulosis Mixed hyperlipidemia Surgical History History of esophagogastroduodenoscopy (EGD) Hx of colonoscopy History of inguinal hernia repair Family History Father No problems noted. Mother Chronic mental illness Alzheimers disease Paternal Grandmother Cancer Maternal Uncle Cancer Paternal Aunt Cancer Paternal Uncle Colon cancer Sister Breast cancer Maternal Grandfather Colon cancer Paternal Grandfather Prostate cancer Family/Other Chronic mental illness Social History Household Members: None Housing: Apartment Do you presently have visiting nurse or other home services: No Alcohol intake: current Alcohol intake frequency: holidays/special occasions only Alcohol type: beer Patient Tobacco Use Status: Former Tobacco user Quit Date: years ago Tobacco use type: Cigarette e-Cigarette/Vaping Use: Never Used Second Hand Smoke Exposure: No Substance Use Type: Marijuana service: No Current occupational status: employed Current occupational exposures/hazards: No Cognitive needs: No Hearing needs: No Vision needs: No Review of Systems Const All systems reviewed & are unremarkable except as noted in HPI and below Physical Exam Vital Signs: Last Vital Signs Pulse 79 05/08/23 10:21 BP 104/71 05/08/23 10:21 BMI result Body Mass Index 22.0 Const General: healthy appearing and no acute distress Nutritional Appearance: average body habitus Orientation/consciousness: patient oriented x3 Limitations: no limitations HEENT Head: Yes normal to inspection Ears: hearing grossly normal bilaterally Eyes Sclerae: sclerae normal Pupils: Equal, round and reactive pupils present Neck Neck: Yes normal visual inspection Chest Chest palpation & inspection: normal inspection of the chest Resp Effort & Inspection: normal respiratory effort Auscultation: clear to auscultation bilaterally Cardio Palpation: normal PMI Rate: regular rate Rhythm: regular rhythm Heart sounds: S1 normal heart sound present, S2 normal heart sound present and no murmurs GI Palpation (GI): Soft to palpation, nontender and No hepatosplenomegaly present Auscultation: normal bowel sounds Rectal Exam - Male: Yes deferred Skin General skin exam: no rashes or lesions noted Neuro General: patient oriented x3, gait normal and moves all extremities Cranial nerves: Yes Equal, round and reactive pupils present Psych Appearance: grossly normal Mental Status: mental status grossly normal Assessment & Plan Assessment & Plan (1) Iron deficiency anemia due to chronic blood loss: Code(s): D50.0 - Iron deficiency anemia secondary to blood loss (chronic) (2) History of colon polyps: Code(s): Z86.010 - Personal history of colonic polyps (3) GERD (gastroesophageal reflux disease): Code(s): K21.9 - Gastro-esophageal reflux disease without esophagitis Qualifiers: Esophagitis presence: with esophagitis Esophagitis bleeding: with hemorrhage Qualified Code(s): K21.01 - Gastro-esophageal reflux disease with esophagitis, with bleeding (4) Helicobacter pylori gastritis: Code(s): K29.70 - Gastritis, unspecified, without bleeding; B96.81 - Helicobacter pylori [H. pylori] as the cause of diseases classified elsewhere (5) Diverticulosis: Code(s): K57.90 - Diverticulosis of intestine, part unspecified, without perforation or abscess without bleeding (6) Hemorrhoids: Code(s): K64.9 - Unspecified hemorrhoids Plan 57 YM hospitalized at [facility] 07/12/22 with nausea, vomiting, lower chest/midepigastric pain and black tarry stools.? 07/02/22 CT scan of abdomen pelvis was negative.? Pt reported wt loss of 9 lbs over the past 2 weeks. EGD was performed and findings as noted above Pt was prescribed antibiotics (quadruple therapy) for H pylori detected on gastric biopsy 09/2022 EGD (FU of gastric ulcer) with same-day colonoscopy (FU of colon polyps) were performed and results as noted above. He was advised to decrease omeprazole to 40 mg once a day. 05/08/22 Pt advised to check labs and continue taking Omeprazole 40 mg daily FU in 6 months Orders: Orders Vitamin D 25-OH Total Today D50.0 - Iron deficiency anemia secondary to blood loss (chronic), K21.9 - Gastro-esophageal reflux disease without esophagitis Ferritin Today D50.0 - Iron deficiency anemia secondary to blood loss (chronic), K21.9 - Gastro-esophageal reflux disease without esophagitis Complete Blood Count no Diff Today D50.0 - Iron deficiency anemia secondary to blood loss (chronic), K21.9 - Gastro-esophageal reflux disease without esophagitis Coding Level of Care Code Est Pt Level 4 (80542) Diagnoses Iron deficiency anemia due to chronic blood loss D50.0 History of colon polyps Z86.010 Gastroesophageal reflux disease with esophagitis and hemorrhage K21.01 Esophagitis presence: with esophagitis Esophagitis bleeding: with hemorrhage Helicobacter pylori gastritis K29.70; B96.81 Diverticulosis K57.90 Hemorrhoids K64.9 Time Spent (min) 21
== END 2023-05-08 11:03 | disposition home or self-care (01) ==
PROVIDERS: PCP Physician Assistant; Visit Provider Internal Medicine Gastroenterology
DX: D50.0 Iron deficiency anemia secondary to blood loss (chronic) (principal); Z86.010 Personal history of colon polyps; K21.01 Gastro-esophageal reflux disease with esophagitis, with bleeding; K29.70 Gastritis, unspecified, without bleeding; B96.81 Helicobacter pylori [H. pylori] as the cause of diseases classified elsewhere; K57.90 Diverticulosis of intestine, part unspecified, without perforation or abscess without bleeding; K64.9 Unspecified hemorrhoids
CPT/HCPCS: 99214

== ENCOUNTER 2023-05-08 10:16 | Outpatient (REF) | payer BC, SELFPAY ==
[2023-05-08 12:00] LABS: Hematocrit 39.9 % (42.0-52.0); Hemoglobin 12.9 g/dl (14.0-18.0); Mean Corpuscular HGB Conc 32.3 g/dl (31.0-36.0); Mean Corpuscular Hemoglobin 29.2 pg (27.0-33.0); Mean Corpuscular Volume 90.3 fL (80.0-98.0); Mean Platelet Volume 10.5 fL (9.4-12.4); Platelet Count 232 X10*3/uL (160-400); Red Blood Count 4.42 X10*6/uL (4.60-5.80); Red Cell Distribution Width 13.9 % (11.0-16.0); White Blood Count 6.6 X10*3/uL (4.8-10.8)
[2023-05-08 13:01] LABS: Ferritin 50 ng/mL (20-250); Vitamin D 25-OH Total 25.2 ng/mL (>30)
== END 2023-05-08 10:17 | disposition home or self-care (01) ==
LOC: HO.LAB 10:16
PROVIDERS: PCP Physician Assistant; Visit Provider Internal Medicine Gastroenterology
DX: D50.0 Iron deficiency anemia secondary to blood loss (chronic) (principal); K21.01 Gastro-esophageal reflux disease with esophagitis, with bleeding; K29.70 Gastritis, unspecified, without bleeding; B96.81 Helicobacter pylori [H. pylori] as the cause of diseases classified elsewhere; K57.90 Diverticulosis of intestine, part unspecified, without perforation or abscess without bleeding; K64.9 Unspecified hemorrhoids; Z86.010 Personal history of colon polyps; Z79.899 Other long term (current) drug therapy
CPT/HCPCS: 36415; 82306; 82728; 85027; 99212

== ENCOUNTER 2023-05-28 09:15 | Outpatient (AMB) | payer BC, SELFPAY ==
--- NOTE | 2023-05-28 09:31 | MHC.PC.OV ---
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 Accompanied by: Self / Same As Patient Allergies No Known Allergies [No Known Allergies*] Allergy (Verified 05/28/23 09:59) Medication List - Last Reconciled 05/28/23 by Tianna Stern MD atorvastatin 80 mg PO .BEDTIME Q48H cholecalciferol (vitamin D3) 50 mcg PO DAILY 90 days fenofibrate 54 mg PO DAILY 90 days Tobacco use date assessed: 05/28/23 Dental Screening Dental Screen Date: 05/28/23 Did you have a dental visit in the last 12 months?: Yes Did you have a dental problem in the last 6 months where you did not have access to dental care?: No Was dental information given to patient?: Patient has dentist HPI HPI Comments History of Present Illness Details This is a 58-year-old male that comes for his physical exam. Last colonoscopy was last year showing tubular adenoma. No chest pain or shortness of breath. Doing well. [facility] Medical History Peptic ulcer Erectile dysfunction Encounter for physical examination Hemorrhoids Diverticulosis Mixed hyperlipidemia Surgical History History of esophagogastroduodenoscopy (EGD) Hx of colonoscopy History of inguinal hernia repair Family History Father No problems noted. Mother Chronic mental illness Alzheimers disease Paternal Grandmother Cancer Maternal Uncle Cancer Paternal Aunt Cancer Paternal Uncle Colon cancer Sister Breast cancer Maternal Grandfather Colon cancer Paternal Grandfather Prostate cancer Family/Other Chronic mental illness Social History Household Members: None Housing: Apartment Do you presently have visiting nurse or other home services: No Alcohol intake: current Alcohol intake frequency: holidays/special occasions only Alcohol type: beer Patient Tobacco Use Status: Former Tobacco user Quit Date: years ago Tobacco use type: Cigarette e-Cigarette/Vaping Use: Never Used Second Hand Smoke Exposure: No Substance Use Type: Marijuana service: No Current occupational status: employed Current occupational exposures/hazards: No Cognitive needs: No Hearing needs: No Vision needs: Yes Questionnaire PHQ-9 Over the last 2 weeks, how often have you been bothered by any of the following problems? 1. Little interest or pleasure in doing things: not at all 2. Feeling down, depressed, or hopeless: not at all 3. Trouble falling or staying asleep, or sleeping too much: not at all 4. Feeling tired or having little energy: not at all 5. Poor appetite or overeating: not at all 6. Feeling bad about yourself - or that you are a failure or have let yourself or your family down: not at all 7. Trouble concentrating on things, such as reading the newspaper or watching television: not at all 8. Moving or speaking so slowly that other people could have noticed. Or the opposite - being so fidgety or restless that you have been moving around a lot more than usual: not at all 9. Thoughts that you would be better off or of hurting yourself in some way: not at all Total score: 0 Depression Screening Interpretation: Negative Depression Screening Done: Yes 99996 - PHQ-9 Billing: Yes Source: Developed by Drs. Bernard Rich, Petra Lewis, Jose Daniel Alan and colleagues, with an educational kamala from [employer]. Thrive Questionnaire Date Thrive assessed: 05/28/23 I am a: Patient What is your living situation today?: I have a steady place to live Within the past 12 months, did the food you bought not last and you didn't have the money to get more?: Never true Within the past 12 months, did you worry whether your food would run out before you got money to buy more?: Never true Do you have trouble paying for medicines?: No Do you have trouble getting transportation to medical appointments?: No Do you have trouble paying your heating and electricity bill?: No Do you have trouble taking care of your child, family member or friend?: No Do you have trouble with day-to-day activities such as bathing, preparing meals, shopping, managing finances, etc.?: No Are you currently unemployed and looking for a job?: No Are you interested in more education?: No Please select the resources that you would like help with: None Currently or been in a relationship where the following occur: no concerns reported THRIVE Score: 0 AUDIT C Alcohol Use Questionnaire (AUDIT-C) 1. How often do you have a drink containing alcohol?: Never Total Score: 0 Score Reviewed/Action Taken: No WHITLEY-7 AMB Questionnaire WHITLEY-7 Date WHITLEY - 7 assessed: 05/28/23 Feeling nervous, anxious, or on edge: 0 = Not at all Not being able to stop or control worryin = Not at all Worrying too much about different things: 0 = Not at all Trouble relaxin = Not at all Being so restless that it is hard to sit still: 0 = Not at all Becoming easily annoyed or irritable: 0 = Not at all Feeling afraid as if something awful might happen: 0 = Not at all Total WHITLEY-7 score (0-4 normal; 5-9 mild; 10-14 moderate; 15-21 severe): 0 Source: Developed by Drs. Bernard Rich, Petra Lewis, Jose Daniel Alan and colleagues, with an educational kamala from [employer]. WHITLEY-7 Assessment Billing WHITLEY-7 Assessment Tool: WHITLEY-7 Assessment 54190 Review of Systems Const All systems reviewed & are unremarkable except as noted in HPI and below Eyes Reports no additional complaints, Denies change in vision and Denies other visual disturbances Card Denies chest pain at rest, Denies chest pain with activity, Denies edema, Denies irregular heart rhythm, Denies claudication, Denies dyspnea, Denies dyspnea on exertion, Denies orthopnea, Denies paroxysmal nocturnal dyspnea and Denies slow heart rate Resp Denies cough, Denies dyspnea and Denies dyspnea on exertion GI Denies abdominal pain, Denies change in bowel habits, Denies excessive flatus, Denies nausea and Denies vomiting Denies urinary hesitancy, Denies urinary incontinence and Denies urinary urgency Musc Denies abnormal gait, Denies atrophy, Denies deformity and Denies limited range of motion Skin/Breast Denies bleeding lesions, Denies changing lesions and Denies rash Neuro Denies abnormal gait, Denies behavioral changes, Denies confusion and Denies lack of coordination Psych Denies behavioral changes and Denies confusion Physical exam (Primary Care) Vital Signs: Last Vital Signs BP 110/70 01/31/24 09:32 BMI result Body Mass Index 21.3 Tobacco/Smoking Status: Tobacco use Status Tobacco use date assessed 05/28/23 05/28/23 09:36 Patient Tobacco Use Status Former Tobacco user 05/28/23 09:36 Tobacco use type Cigarette 05/28/23 09:36 e-Cigarette/Vaping Use Never Used 05/28/23 09:36 PHQ-9: PHQ-9 Score PHQ-9: Total score 0 05/28/23 10:04 Depression Screening Interpretation: Negative Thrive Assessment: Date of Thrive Assessment Date Thrive assessed 05/28/23 05/28/23 09:36 Currently or been in a relationship where the following occur: no concerns reported Const General: No confusion Orientation/consciousness: patient oriented x3 and No confusion HENMT Head: Yes normal to inspection, Yes normocephalic and Yes atraumatic Ears: external ears normal Eyes General: appearance normal, both eyes and all related structures Eyelids: Yes eyelids normal Conjunctivae: conjunctivae normal Neck Neck: Yes normal visual inspection and Yes supple Resp Effort & Inspection: normal respiratory effort Auscultation: clear to auscultation bilaterally Cardio Jugular venous distension: no JVD Rate: regular rate Rhythm: regular rhythm Heart sounds: S1 normal heart sound present and S2 normal heart sound present GI Inspection: Yes normal to inspection Palpation (GI): Soft to palpation and nontender Auscultation: normal bowel sounds Skin General skin exam: no rashes or lesions noted Neuro General: patient oriented x3 and No confusion Extrem General: Yes full ROM Psych Appearance: grossly normal Office Procedures Flu Questionnaire Does the patient have a severe egg allergy?: No Immunizations flu vacc [id number] 6mos up(PF) 60 mcg(15 mcgx4)/0.5 mL IM syringe Performing Provider: Tianna Stern MD [facility] Documented (not given) by: ANUP Vallecillo on 05/28/23 09:37 Reason Not Given: Patient Refused Assessment and Plan Assessment & Plan (1) Encounter for physical examination: Code(s): Z00.00 - Encounter for general adult medical examination without abnormal findings Plan: Repeat in a year. Orders: Orders Influenza [id number] Immunization Today Z23 - Encounter for immunization Coding Level of Care Code Est Pt Prev Care 40-64y(75931) Diagnoses Encounter for physical examination Z00.00 Additional Codes WHITLEY-7 Assessment Billing - WHITLEY-7 Assessment Tool: WHITLEY-7 Assessment 71515 ([id number]) Time Spent (min) 31
[2023-05-28 09:32] VITALS: BP 110/70; BMI 21.3
== END 2023-05-28 10:07 | disposition home or self-care (01) ==
PROVIDERS: Visit Provider Internal Medicine
DX: Z00.00 Encounter for general adult medical examination without abnormal findings (principal)
CPT/HCPCS: 99396

== ENCOUNTER 2023-11-06 10:13 | Outpatient (AMB) | payer BC, SELFPAY ==
--- NOTE | 2023-11-06 10:40 | A.OFFVIS_ITS ---
Vital Signs 11/06/23 10:45 Height 5 ft 6 in Weight 123 lb BMI 19.9 BP 112/73 Blood Pressure Location Lt brachial Position Sitting Pulse 66 Intake Visit Reasons: 6 month f ollow up Intake Note: Patient follow up for Diverticulosis and lab results Patient cc: gassy and denies any other GI issues. 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 No acute findings in the abdomen or pelvis. No inflammatory changes. 2.? Nonobstructing left upper pole renal calculus. ENDOSCOPIC STUDIES: 10/21/22 EGD AND COLON SHOWED: Endoscopy Findings: STOMACH: Mild gastric erythema. Biopsies were obtained. Healed gastric ulcer and Grade 2 flap valve on retroflexed examination of the cardia. Colonoscopy Findings: One medium sized and one small polyps removed (small polyp was not retrieved) Moderate diverticulosis seen in the left colon Moderate hemorrhoids on retroflexed exam. Plan: Repeat Colonoscopy interval based on path results - in 3 years if polyps are adenomatous and 10 years if polyps are hyperplastic. (If rectal polyp shows advanced histology - then repeat flex sig in 3 - 6 months to check polypectomy site) 07/12/22 EGD SHOWEDSTOMACH:? A large deep 3 cms x 4 cms ulcer crater noted at the cardia with a few red spots without active bleeding just distal to GEJ from 43 to 46 cms - biopsies obtained. Moderate diffuse gastric erythema with a 5-6 mm superficial non-bleeding ulcer at the antrum. Antral biopsies were obtained to check for H pylori. DUODENUM: Edematous folds in the proximal bulb and normal bulb and descending duodenum No blood seen in the upper GI tract during upper endoscopy. Black stools likely from large ulcer at cardia - worrisome for malignancy. Plan:? Repeat CBC in the am Chest and abdominal CT scan with IV and PO contrast. Check CEA - added to am labs. If biopsies are positive for malignancy, pt will need further evaluation with? endoscopic ultrasound and Oncology consultation If biopsies are negative for malignancy, repeat EGD in 6 to 8 weeks to confirm gastric ulcer has healed Above findings were reviewed with the patient. ADDENDUM: BIOPSIES SHOWED: A.? Stomach, antrum, biopsy: - Antral-type mucosa with severe chronic active inflammation. - Positive for H pylori.B.? Stomach, cardia ulcer, biopsy: - Cardiac-type mucosa with severe chronic active inflammation and regenerative changes. - Positive for H pylori.CEA was normal 07/13/[address] SCAN WITH CONTRAST SHOWED: 1. Prominent wall thickening of the gastric fundus, increased whencompared to the prior examination. No significant enhancement. Findings could indicate acute gastritis. No pneumatosis or evidence of perforation. 2. No intra-abdominal mass, lymphadenopathy, or ascites. 3. No hydronephrosis or nephrolithiasis. Previously seen left upperpole renal stone is not well visualized, likely related to contrast. 4. Prominent prostatomegaly with central calcifications, unchanged. 5. No pulmonary nodule, mass, or confluent airspace consolidation. TODAY'S VISIT: Patient cc: gassy and denies any other GI issues. Patient follow up for Diverticulosis and lab results Unexplained wt loss of 10 lbs over the past year. Denies any change in eating habits. 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 EGD and colon results reviewed Still has intermittent epigastric/lower chest pain 4/10 Feeling more hungry and getting his appetite back Taking antibiotics for H pylori - still has 4-5 more days. Patient denies major cardiac or pulmonary problems, He admits to snoring and denies sleep apnea Denies problems with anesthesia in the past. Pt took an Aleve last week for abd pain and denies being on chronic anticoagulation. 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 Pt reports FH of colon cancer in his maternal GF at age 75 yrs Patient denies known family history of colon polyps or other GI malignancies. PAST GI HISTORY BY REVIEW OF MEDICAL RECORDS: 07/12/22 patient was seen during recent hospitalization at [facility]: 57 YM seen at [facility] ED on 07/02/2022 with complaints of nausea vomiting and lower chest/midepigastric pain.?CT scan of abdomen pelvis was negative and patient was discharged home on PO ondansetron.? Pt reports worsening of abdominal pain over the past week Pain is 9/10 in intensity, constant and gets worse after eating solid food. Pt complains of nausea and had an episode on vomiting today containing streaks of blood.? About 3 days prior to presentation he started to develop black tardy stools - 1- 2 times a day. Pt reports wt loss of 9 lbs over the past 2 weeks. Pt came to the ER today after he noted increased abdominal pain with some dizziness.? Chest x-ray was normal hemoglobin was stable.? Pt was admitted for GI evaluation PAST EGD/COLONOSCOPY: 11/2018 Pt had a colonoscopy and two medium sized adenomatous polyps were removed.FU colon was advised in 3 yrs 2018:? Pt was seen at [facility] ED with abdominal pain and discharged on Prilosec, Sucralfate and?bentyl PFSH Medical History Peptic ulcer Erectile dysfunction Encounter for physical examination Hemorrhoids Diverticulosis Mixed hyperlipidemia Surgical History History of esophagogastroduodenoscopy (EGD) Hx of colonoscopy History of inguinal hernia repair Family History Father No problems noted. Mother Chronic mental illness Alzheimers disease Paternal Grandmother Cancer Maternal Uncle Cancer Paternal Aunt Cancer Paternal Uncle Colon cancer Sister Breast cancer Maternal Grandfather Colon cancer Paternal Grandfather Prostate cancer Family/Other Chronic mental illness Social History Household Members: None Housing: Apartment Do you presently have visiting nurse or other home services: No Alcohol intake: current Alcohol intake frequency: holidays/special occasions only Alcohol type: beer Patient Tobacco Use Status: Former Tobacco user Tobacco use type: Cigarette e-Cigarette/Vaping Use: Never Used Second Hand Smoke Exposure: No Substance Use Type: Marijuana service: No Current occupational status: employed Current occupational exposures/hazards: No Cognitive needs: No Hearing needs: No Vision needs: Yes Review of Systems Const All systems reviewed & are unremarkable except as noted in HPI and below Physical Exam Vital Signs: Last Vital Signs Pulse 66 11/06/23 10:45 BP 112/73 11/06/23 10:45 BMI result Body Mass Index 19.9 Const General: healthy appearing and no acute distress Nutritional Appearance: average body habitus Orientation/consciousness: patient oriented x3 Limitations: no limitations HEENT Head: Yes normal to inspection Ears: hearing grossly normal bilaterally Eyes Sclerae: sclerae normal Pupils: Equal, round and reactive pupils present Neck Neck: Yes normal visual inspection Chest Chest palpation & inspection: normal inspection of the chest Resp Effort & Inspection: normal respiratory effort Auscultation: clear to auscultation bilaterally Cardio Palpation: normal PMI Rate: regular rate Rhythm: regular rhythm Heart sounds: S1 normal heart sound present, S2 normal heart sound present and no murmurs GI Palpation (GI): Soft to palpation, nontender and No hepatosplenomegaly present Auscultation: normal bowel sounds Rectal Exam - Male: Yes deferred Skin General skin exam: no rashes or lesions noted Neuro General: patient oriented x3, gait normal and moves all extremities Cranial nerves: Yes Equal, round and reactive pupils present Psych Appearance: grossly normal Mental Status: mental status grossly normal Assessment & Plan Assessment & Plan (1) GERD (gastroesophageal reflux disease): Code(s): K21.9 - Gastro-esophageal reflux disease without esophagitis Category: Medical Qualifiers: Esophagitis bleeding: with hemorrhage Esophagitis presence: with esophagitis Qualified Code(s): K21.01 - Gastro-esophageal reflux disease with esophagitis, with bleeding Plan 58 YM hospitalized at [facility] 07/12/22 with nausea, vomiting, lower chest/midepigastric pain and black tarry stools.? 07/02/22 CT scan of abdomen pelvis was negative.? Pt reported wt loss of 9 lbs over the past 2 weeks. EGD was performed and findings as noted above Pt was prescribed antibiotics (quadruple therapy) for H pylori detected on gastric biopsy 09/2022 EGD (FU of gastric ulcer) with same-day colonoscopy (FU of colon polyps) were performed and results as noted above. He was advised to decrease omeprazole to 40 mg once a day. 05/08/22 Pt advised to check labs and continue taking Omeprazole 40 mg daily 11/06/23 Patient follow up for Diverticulosis and lab results Unexplained wt loss of 10 lbs over the past year. Pt advised to continue Pantoprazole 40 mg daily FU in 4 months Medications: New pantoprazole 40 mg PO QAM 90 days 90 tabs 1RF K21.01 - Gastro-esophageal reflux disease with esophagitis, with bleeding Coding Level of Care Code Est Pt Level 3 (96802) Diagnoses Gastroesophageal reflux disease with esophagitis and hemorrhage K21.01 Esophagitis bleeding: with hemorrhage Esophagitis presence: with esophagitis Time Spent (min) 18
[2023-11-06 10:45] VITALS: BP 112/73; PULSE 66; BMI 19.9
== END 2023-11-06 11:33 | disposition home or self-care (01) ==
PROVIDERS: PCP Physician Assistant; Visit Provider Internal Medicine Gastroenterology
DX: K21.01 Gastro-esophageal reflux disease with esophagitis, with bleeding (principal)
CPT/HCPCS: 99213

== ENCOUNTER → 2023-11-06 10:13 | Outpatient (BNVA) | payer BC, SELFPAY | PROVIDERS: PCP Physician Assistant; Visit Provider Internal Medicine Gastroenterology ==

== ENCOUNTER 2024-02-02 07:41 | Outpatient (AMB) | payer BC, SELFPAY ==
--- NOTE | 2024-02-02 07:46 | MHC.OFFVIS ---
Vital Signs 02/02/24 07:47 Height 5 ft 6 in Weight 128 lb BMI 20.7 BP 131/94 H Blood Pressure Location Lt brachial Position Sitting Pulse 75 Intake Visit Reasons: follow up GERD Intake Note: Patient follow up for GERD. Patient denies any GI issues, patient gain some weight and GERD is much better with Pantoprazole. 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 Accompanied by: Self / Same As Patient Allergies No Known Allergies [No Known Allergies*] Allergy (Verified 02/02/24 07:46) Medication List - Last Reconciled 02/02/24 by Deysi Ross MD atorvastatin 80 mg PO .BEDTIME Q48H cholecalciferol (vitamin D3) (Vitamin D3) 50 mcg PO DAILY 90 days fenofibrate 54 mg PO DAILY 90 days pantoprazole 40 mg PO QAM 90 days HPI HPI follow up GERD: Details: GI clinic visit for this 58-year-old male for follow-up Pt was hospitalized at [facility] (07/12 TO 07/13/22) for GI bleeding and anemia TODAY'S VISIT: Patient denies any GI issues, patient gain some weight and GERD is much better with Pantoprazole. Appetite improved and has gained 5 lbs Denies vomiting or diarrhea Heartburn well controlled with pantoprazole Work has been less stressful He was able to visit hs 82 year old Mom (with Demetnia) in [place] this year Dad is 85 and takes care of his Mom. Has 3 sisters in [place] and a brother in the [place] PAST VISITS: Patient follow up for Diverticulosis and lab results Unexplained wt loss of 10 lbs over the past year. Denies any change in eating habits. 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 EGD and colon results reviewed Still has intermittent epigastric/lower chest pain 4/10 Feeling more hungry and getting his appetite back Taking antibiotics for H pylori - still has 4-5 more days. Patient denies major cardiac or pulmonary problems, He admits to snoring and denies sleep apnea Denies problems with anesthesia in the past. Pt took an Aleve last week for abd pain and denies being on chronic anticoagulation. 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 Pt reports FH of colon cancer in his maternal GF at age 75 yrs Patient denies known family history of colon polyps or other GI malignancies. 07/02/[address] SCAN SHOWED: 1.? No acute findings in the abdomen or pelvis. No inflammatory changes. 2.? Nonobstructing left upper pole renal calculus. ENDOSCOPIC STUDIES: 10/21/22 EGD AND COLON SHOWED: Endoscopy Findings: STOMACH: Mild gastric erythema. Biopsies were obtained. Healed gastric ulcer and Grade 2 flap valve on retroflexed examination of the cardia. Colonoscopy Findings: One medium sized and one small polyps removed (small polyp was not retrieved) Moderate diverticulosis seen in the left colon Moderate hemorrhoids on retroflexed exam. Plan: Repeat Colonoscopy interval based on path results - in 3 years if polyps are adenomatous and 10 years if polyps are hyperplastic. (If rectal polyp shows advanced histology - then repeat flex sig in 3 - 6 months to check polypectomy site) 07/12/22 EGD SHOWED STOMACH:? A large deep 3 cms x 4 cms ulcer crater noted at the cardia with a few red spots without active bleeding just distal to GEJ from 43 to 46 cms - biopsies obtained. Moderate diffuse gastric erythema with a 5-6 mm superficial non-bleeding ulcer at the antrum. Antral biopsies were obtained to check for H pylori. DUODENUM: Edematous folds in the proximal bulb and normal bulb and descending duodenum No blood seen in the upper GI tract during upper endoscopy. Black stools likely from large ulcer at cardia - worrisome for malignancy. Plan:? Repeat CBC in the am Chest and abdominal CT scan with IV and PO contrast. Check CEA - added to am labs. If biopsies are positive for malignancy, pt will need further evaluation with? endoscopic ultrasound and Oncology consultation If biopsies are negative for malignancy, repeat EGD in 6 to 8 weeks to confirm gastric ulcer has healed Above findings were reviewed with the patient. ADDENDUM: BIOPSIES SHOWED: A.? Stomach, antrum, biopsy: - Antral-type mucosa with severe chronic active inflammation. - Positive for H pylori.B.? Stomach, cardia ulcer, biopsy: - Cardiac-type mucosa with severe chronic active inflammation and regenerative changes. - Positive for H pylori.CEA was normal 07/13/[address] SCAN WITH CONTRAST SHOWED: 1. Prominent wall thickening of the gastric fundus, increased when compared to the prior examination. No significant enhancement. Findings could indicate acute gastritis. No pneumatosis or evidence of perforation. 2. No intra-abdominal mass, lymphadenopathy, or ascites. 3. No hydronephrosis or nephrolithiasis. Previously seen left upperpole renal stone is not well visualized, likely related to contrast. 4. Prominent prostatomegaly with central calcifications, unchanged. 5. No pulmonary nodule, mass, or confluent airspace consolidation. PAST GI HISTORY BY REVIEW OF MEDICAL RECORDS: 07/12/22 patient was seen during recent hospitalization at [facility]: 57 YM seen at [facility] ED on 07/02/2022 with complaints of nausea vomiting and lower chest/midepigastric pain.?CT scan of abdomen pelvis was negative and patient was discharged home on PO ondansetron.? Pt reports worsening of abdominal pain over the past week Pain is 9/10 in intensity, constant and gets worse after eating solid food. Pt complains of nausea and had an episode on vomiting today containing streaks of blood.? About 3 days prior to presentation he started to develop black tardy stools - 1-2 times a day. Pt reports wt loss of 9 lbs over the past 2 weeks. Pt came to the ER today after he noted increased abdominal pain with some dizziness.? Chest x-ray was normal hemoglobin was stable.? Pt was admitted for GI evaluation PAST EGD/COLONOSCOPY: 11/2018 Pt had a colonoscopy and two medium sized adenomatous polyps were removed.FU colon was advised in 3 yrs 2018:? Pt was seen at [facility] ED with abdominal pain and discharged on Prilosec, Sucralfate and?bentyl [facility] Medical History Peptic ulcer Erectile dysfunction Encounter for physical examination Hemorrhoids Diverticulosis Mixed hyperlipidemia Surgical History History of esophagogastroduodenoscopy (EGD) Hx of colonoscopy History of inguinal hernia repair Family History Father No problems noted. Mother Chronic mental illness Alzheimers disease Paternal Grandmother Cancer Maternal Uncle Cancer Paternal Aunt Cancer Paternal Uncle Colon cancer Sister Breast cancer Maternal Grandfather Colon cancer Paternal Grandfather Prostate cancer Family/Other Chronic mental illness Social History Household Members: None Housing: Apartment Do you presently have visiting nurse or other home services: No Alcohol intake: current Alcohol intake frequency: holidays/special occasions only Alcohol type: beer Patient Tobacco Use Status: Former Tobacco user Tobacco use type: Cigarette e-Cigarette/Vaping Use: Never Used Second Hand Smoke Exposure: No Substance Use Type: Marijuana service: No Current occupational status: employed Current occupational exposures/hazards: No Cognitive needs: No Hearing needs: No Vision needs: Yes Review of Systems Const All systems reviewed & are unremarkable except as noted in HPI and below Physical Exam Vital Signs: BMI result Body Mass Index 21.0 Const General: healthy appearing and no acute distress Nutritional Appearance: average body habitus Orientation/consciousness: patient oriented x3 Limitations: no limitations HEENT Head: Yes normal to inspection Ears: hearing grossly normal bilaterally Eyes Sclerae: sclerae normal Pupils: Equal, round and reactive pupils present Neck Neck: Yes normal visual inspection Chest Chest palpation & inspection: normal inspection of the chest Resp Effort & Inspection: normal respiratory effort Auscultation: clear to auscultation bilaterally Cardio Palpation: normal PMI Rate: regular rate Rhythm: regular rhythm Heart sounds: S1 normal heart sound present, S2 normal heart sound present and no murmurs GI Palpation (GI): Soft to palpation, nontender and No hepatosplenomegaly present Auscultation: normal bowel sounds Rectal Exam - Male: Yes deferred Skin General skin exam: no rashes or lesions noted Neuro General: patient oriented x3, gait normal and moves all extremities Cranial nerves: Yes Equal, round and reactive pupils present Psych Appearance: grossly normal Mental Status: mental status grossly normal Assessment & Plan Assessment & Plan (1) Diverticulosis: Code(s): K57.90 - Diverticulosis of intestine, part unspecified, without perforation or abscess without bleeding Category: Medical (2) Hemorrhoids: Code(s): K64.9 - Unspecified hemorrhoids Category: Medical (3) Helicobacter pylori gastritis: Code(s): K29.70 - Gastritis, unspecified, without bleeding; B96.81 - Helicobacter pylori [H. pylori] as the cause of diseases classified elsewhere Category: Medical (4) GERD (gastroesophageal reflux disease): Code(s): K21.9 - Gastro-esophageal reflux disease without esophagitis Category: Medical Qualifiers: Esophagitis bleeding: with hemorrhage Esophagitis presence: with esophagitis Qualified Code(s): K21.01 - Gastro-esophageal reflux disease with esophagitis, with bleeding (5) History of colon polyps: Code(s): Z86.010 - Personal history of colon polyps Category: Medical (6) Iron deficiency anemia due to chronic blood loss: Code(s): D50.0 - Iron deficiency anemia secondary to blood loss (chronic) Category: Medical Plan 58 YM hospitalized at [facility] 07/12/22 with nausea, vomiting, lower chest/midepigastric pain and black tarry stools.? 07/02/22 CT scan of abdomen pelvis was negative.? Pt reported wt loss of 9 lbs over the preceding 2 weeks. EGD was performed and findings as noted above Pt was prescribed antibiotics (quadruple therapy) for H pylori detected on gastric biopsy 09/2022 EGD (FU of gastric ulcer) with same-day colonoscopy (FU of colon polyps) were performed and results as noted above. Repeat colon advised in 3 years (due 09/2025) He was advised to decrease omeprazole to 40 mg once a day. 05/08/22 Pt advised to check labs and continue taking Omeprazole 40 mg daily 11/06/23 Patient follow up for Diverticulosis and lab results Unexplained wt loss of 10 lbs over the past year. Pt advised to continue Pantoprazole 40 mg daily 02/02/24 GERD well controlled with Pantoprazole Has gained 5 lbs FU in 6 month Medications: Refilled pantoprazole 40 mg PO QAM 90 days 90 tabs 1RF K21.01 - Gastro-esophageal reflux disease with esophagitis, with bleeding Coding Level of Care Code Est Pt Level 3 (65837) Diagnoses Diverticulosis K57.90 Hemorrhoids K64.9 Helicobacter pylori gastritis K29.70; B96.81 Gastroesophageal reflux disease with esophagitis and hemorrhage K21.01 Esophagitis bleeding: with hemorrhage Esophagitis presence: with esophagitis History of colon polyps Z86.010 Iron deficiency anemia due to chronic blood loss D50.0 Time Spent (min) 12
[2024-02-02 07:47] VITALS: BP 131/94; PULSE 75; BMI 20.7
== END 2024-02-02 08:18 | disposition home or self-care (01) ==
PROVIDERS: PCP Physician Assistant; Visit Provider Internal Medicine Gastroenterology
DX: K57.90 Diverticulosis of intestine, part unspecified, without perforation or abscess without bleeding (principal); K64.9 Unspecified hemorrhoids; K29.70 Gastritis, unspecified, without bleeding; B96.81 Helicobacter pylori [H. pylori] as the cause of diseases classified elsewhere; K21.01 Gastro-esophageal reflux disease with esophagitis, with bleeding; Z86.0100 Personal history of colon polyps, unspecified; D50.0 Iron deficiency anemia secondary to blood loss (chronic)
CPT/HCPCS: 99213

== ENCOUNTER → 2024-02-02 07:41 | Outpatient (BNVA) | payer BC, SELFPAY | PROVIDERS: PCP Physician Assistant; Visit Provider Internal Medicine Gastroenterology ==

== ENCOUNTER 2024-06-21 08:17 | Outpatient (AMB) | payer BC, SELFPAY ==
--- NOTE | 2024-06-21 08:21 | MHC.PC.OV ---
Vital Signs 06/21/24 08:25 Height 5 ft 6 in Weight 129 lb BMI 20.8 BP 118/80 Blood Pressure Location Lt brachial Position Sitting Intake Visit Reasons: physical Intake Note: Patient here for a physical exam Dowel Pin Man Required: Yes Dowel Pin Man Language: Director Of Public Safety Name: Tianna Stern MD Information Interpreted: non-clinical & clinical Accompanied by: Self / Same As Patient Allergies No Known Allergies [No Known Allergies*] Allergy (Verified 06/21/24 08:50) Medication List - Last Reconciled 06/21/24 by Tianna Stern MD atorvastatin 80 mg PO .BEDTIME Q48H cholecalciferol (vitamin D3) (Vitamin D3) 50 mcg PO DAILY 90 days fenofibrate 54 mg PO DAILY 90 days pantoprazole 40 mg PO QAM 90 days Tobacco use date assessed: 06/21/24 Dental Screening Dental Screen Date: 06/21/24 Did you have a dental visit in the last 12 months?: Yes Did you have a dental problem in the last 6 months where you did not have access to dental care?: No Was dental information given to patient?: Patient has dentist HPI HPI Comments History of Present Illness Details This is a 59-year-old male that comes for his physical exam. Last colonoscopy was 2022 showing tubular adenoma next colonoscopy should be 2025. Needs Tdap vaccine that will be place today. Declines flu vaccine. [facility] Medical History Peptic ulcer Erectile dysfunction Encounter for physical examination Hemorrhoids Diverticulosis Mixed hyperlipidemia Surgical History History of esophagogastroduodenoscopy (EGD) Hx of colonoscopy History of inguinal hernia repair Family History Father No problems noted. Mother Chronic mental illness Alzheimers disease Paternal Grandmother Cancer Maternal Uncle Cancer Paternal Aunt Cancer Paternal Uncle Colon cancer Sister Breast cancer Maternal Grandfather Colon cancer Paternal Grandfather Prostate cancer Family/Other Chronic mental illness Social History Household Members: None Housing: Apartment Do you presently have visiting nurse or other home services: No Alcohol intake: current Alcohol intake frequency: holidays/special occasions only Alcohol type: beer Patient Tobacco Use Status: Former Tobacco user Tobacco use type: Cigarette e-Cigarette/Vaping Use: Never Used Second Hand Smoke Exposure: No Substance Use Type: Marijuana service: No Current occupational status: employed Current occupational exposures/hazards: No Cognitive needs: No Hearing needs: No Vision needs: Yes Questionnaire PHQ-9 Over the last 2 weeks, how often have you been bothered by any of the following problems? 1. Little interest or pleasure in doing things: not at all 2. Feeling down, depressed, or hopeless: not at all 3. Trouble falling or staying asleep, or sleeping too much: not at all 4. Feeling tired or having little energy: not at all 5. Poor appetite or overeating: not at all 6. Feeling bad about yourself - or that you are a failure or have let yourself or your family down: not at all 7. Trouble concentrating on things, such as reading the newspaper or watching television: not at all 8. Moving or speaking so slowly that other people could have noticed. Or the opposite - being so fidgety or restless that you have been moving around a lot more than usual: not at all 9. Thoughts that you would be better off or of hurting yourself in some way: not at all Total score: 0 Depression Screening Interpretation: Negative Depression Screening Done: Yes 44028 - PHQ-9 Billing: Yes Source: Developed by Drs. Bernard Rich, Petra Lewis, Jose Daniel Alan and colleagues, with an educational kamala from [employer]. Thrive Questionnaire Date Thrive assessed: 06/21/24 I am a: Patient What is your living situation today?: I have a steady place to live Within the past 12 months, did the food you bought not last and you didn't have the money to get more?: Never true Within the past 12 months, did you worry whether your food would run out before you got money to buy more?: Never true Do you have trouble paying for medicines?: No Do you have trouble getting transportation to medical appointments?: No Do you have trouble paying your heating and electricity bill?: No Do you have trouble taking care of your child, family member or friend?: No Do you have trouble with day-to-day activities such as bathing, preparing meals, shopping, managing finances, etc.?: No Are you currently unemployed and looking for a job?: No Are you interested in more education?: No Please select the resources that you would like help with: None Currently or been in a relationship where the following occur: No concerns reported THRIVE Score: 0 AUDIT C Alcohol Use Questionnaire (AUDIT-C) 1. How often do you have a drink containing alcohol?: Never Total Score: 0 Score Reviewed/Action Taken: No WHITLEY-7 AMB Questionnaire WHITLEY-7 Date WHITLEY - 7 assessed: 06/21/24 Feeling nervous, anxious, or on edge: 0 = Not at all Not being able to stop or control worryin = Not at all Worrying too much about different things: 0 = Not at all Trouble relaxin = Not at all Being so restless that it is hard to sit still: 0 = Not at all Becoming easily annoyed or irritable: 0 = Not at all Feeling afraid as if something awful might happen: 0 = Not at all Total WHITLEY-7 score (0-4 normal; 5-9 mild; 10-14 moderate; 15-21 severe): 0 Source: Developed by Drs. Bernard Rich, Petra Lewis, Jose Daniel Alan and colleagues, with an educational kamala from [employer]. WHITLEY-7 Assessment Billing WHITLEY-7 Assessment Tool: WHITLEY-7 Assessment 13463 Review of Systems Const All systems reviewed & are unremarkable except as noted in HPI and below Card Denies chest pain at rest, Denies chest pain with activity, Denies edema, Denies irregular heart rhythm, Denies claudication, Denies dyspnea, Denies dyspnea on exertion, Denies orthopnea, Denies paroxysmal nocturnal dyspnea and Denies slow heart rate Resp Denies cough, Denies dyspnea and Denies dyspnea on exertion GI Denies abdominal pain, Denies change in bowel habits, Denies excessive flatus, Denies nausea and Denies vomiting Denies urinary hesitancy, Denies urinary incontinence and Denies urinary urgency Physical exam (Primary Care) Vital Signs: Last Vital Signs BP 118/80 06/21/24 08:25 BMI result Body Mass Index 20.8 Tobacco/Smoking Status: Tobacco use Status Tobacco use date assessed 06/21/24 06/21/24 08:27 Patient Tobacco Use Status Former Tobacco user 06/21/24 08:27 Tobacco use type Cigarette 06/21/24 08:27 e-Cigarette/Vaping Use Never Used 06/21/24 08:27 PHQ-9: PHQ-9 Score PHQ-9: Total score 0 06/21/24 09:03 Depression Screening Interpretation: Negative Thrive Assessment: Date of Thrive Assessment Date Thrive assessed 06/21/24 06/21/24 08:27 Currently or been in a relationship where the following occur: No concerns reported [facility] Head: Yes normal to inspection, Yes normocephalic and Yes atraumatic Ears: external ears normal Eyes General: appearance normal, both eyes and all related structures Eyelids: Yes eyelids normal Conjunctivae: conjunctivae normal Neck Neck: Yes normal visual inspection and Yes supple Resp Effort & Inspection: normal respiratory effort Auscultation: clear to auscultation bilaterally Cardio Jugular venous distension: no JVD Rate: regular rate Rhythm: regular rhythm Heart sounds: S1 normal heart sound present and S2 normal heart sound present GI Inspection: Yes normal to inspection Palpation (GI): Soft to palpation and nontender Auscultation: normal bowel sounds Skin General skin exam: no rashes or lesions noted Neuro General: no focal motor deficits Extrem General: Yes full ROM Psych Appearance: grossly normal Office Procedures Flu Questionnaire Does the patient have a severe egg allergy?: No Immunizations Fluarix Triv [id number] (PF) 45 mcg (15 mcg x 3)/0.5 mL IM syringe Performing Provider: Tianna Stern MD Performing Location[place] [facility] Documented (not given) by: ANUP Vallecillo on 06/21/24 08:29 Reason Not Given: Patient Refused Boostrix Tdap 2.5 Lf unit-8 mcg-5 Lf/0.5 mL intramuscular syringe Performing Provider: Tianna Stern MD Performing Location: [facility] Administered by: ANUP Vallecillo on 06/21/24 09:03 Dose Route Admin Location Dispensed Lot Number Expiration Date ND Bottle Inspector 0.5 mL IM Left Deltoid 0.5 mL [id number] 07/17/26 36400-063-07 Project Manager VIS Given Date VIS Provided VIS Publication Date 06/21/24 Single Vaccine 20 Eligibility Eligibility Date Funding Source Not [facility] Eligible 06/21/24 Private Coding Level of Care Code Est Pt Prev Care 40-64y(50679) Diagnoses Encounter for physical examination Z00.00 Additional Codes WHITLEY-7 Assessment Billing - WHITLEY-7 Assessment Tool: WHITLEY-7 Assessment 13460 ([id number]) PHQ-9 - 28778 - PHQ-9 Billing: Yes ([id number]) Time Spent (min) 31 Assessment & Plan Assessment & Plan (1) Encounter for physical examination: Code(s): Z00.00 - Encounter for general adult medical examination without abnormal findings Category: Medical Plan: Repeat in a year. Orders: Orders Influenza [id number] Immunization Today Z23 - Encounter for immunization TDaP Immunization Today Z23 - Encounter for immunization
[2024-06-21 08:25] VITALS: BP 118/80; BMI 20.8
== END 2024-06-21 09:03 | disposition home or self-care (01) ==
PROVIDERS: PCP Physician Assistant; Visit Provider Internal Medicine
DX: Z23 Encounter for immunization (principal); Z00.00 Encounter for general adult medical examination without abnormal findings

== ENCOUNTER → 2024-06-21 08:17 | Outpatient (BNVA) | payer BC, SELFPAY | PROVIDERS: PCP Physician Assistant; Visit Provider Internal Medicine | DX: Z00.00 Encounter for general adult medical examination without abnormal findings (principal); Z23 Encounter for immunization; Z28.21 Immunization not carried out because of patient refusal | CPT/HCPCS: 90471; 90715; 96127 ==

== ENCOUNTER 2024-07-08 05:58 | Emergency (ER) | payer BC, SELFPAY ==
--- NOTE | ~2024-07-08 | CT_ITS ---
EXAMINATION: CT ABDOMEN AND PELVIS WITHOUT CONTRAST CLINICAL INFORMATION: Left flank pain radiating to left groin. Nausea and vomiting. COMPARISON: 07/13/2022, 07/02/2022. TECHNIQUE: Multidetector volumetric imaging was performed from the superior aspect of the liver through the pubic symphysis. Sagittal and coronal reformatted images were obtained on the technologist's workstation. This CT examination was performed using dose optimization techniques as appropriate, variously including the following: *Automated exposure control *Adjustment of mA and/or kV according to patient size (this includes techniques or standardized protocols for targeted exams where dose is matched to indication/reason for exam; i.e. extremities or head) *Use of iterative reconstruction technique FINDINGS: LUNG BASES: Lung bases appear clear bilaterally. No effusions. Tiny right morganii hernia. Heart size normal. There are RCA calcifications. No pericardial effusion. Tiny type I hiatus hernia suspected. LIVER, GALLBLADDER, AND BILIARY TREE: The liver is normal in size, shape, and attenuation. No focal hepatic lesion or biliary ductal dilatation is present. The gallbladder is unremarkable with no evidence of radiopaque gallstones, gallbladder wall thickening, or obvious pericholecystic inflammatory changes. PANCREAS: Unremarkable. SPLEEN: Unremarkable. ADRENAL GLANDS: Unremarkable. KIDNEYS AND URETERS: Left Kidney: No intrinsic renal lesion. No renal calculi. Mild to moderate hydronephrosis and hydroureter. 4 mm obstructing calculus at the left UVJ. Right Kidney: 2 mm nonobstructing calculus within the upper pole region. Right kidney otherwise normal. Right ureter normal. BLADDER: Unremarkable. GASTROINTESTINAL TRACT: The small and large bowel are unremarkable. The appendix is unremarkable. Mildly radiodense material in the distal small bowel and colon, most likely distally. Rectum appears normal. Stomach, and duodenal sweep appear normal. ABDOMINAL WALL: No significant hernia is appreciated. LYMPH NODES: None enlarged. VASCULAR: Mild to moderate atheromatous aortobiiliac calcification. No aneurysm. PELVIC VISCERA: Moderate prostate enlargement with mild dystrophic central calcification. Prostate measures 5.0 cm in diameter. OSSEOUS STRUCTURES: No suspicious lytic or blastic bone lesion. Mild degenerative arthritis bilateral hip joints. CT/CT abdomen pelvis wo IV con IMPRESSION: 1. Mild to moderate left hydronephrosis and hydroureter secondary to a 4 mm of collecting calculus at the left UVJ. 2. There is a 2 mm nonobstructing right renal calculus. Right kidney otherwise normal. 3. Possible tiny type I hiatus hernia. 4. Moderate prostate enlargement. Electronically signed by: Manjit Russ MD 07/08/2024 09:07 AM EDT RP
[2024-07-08 06:04] VITALS: BP 157/87; PULSE 71; RESP 18; TEMP 36.4; O2SAT 100; BMI 21.5
[2024-07-08 06:21] LABS: MANUAL DIFF FLAG NO
[2024-07-08 06:24] LABS: Basophils Absolute Auto 0.1 X10*3/uL (0.0-0.2); Basophils Percent Auto 0.5 % (0-2); Eosinophils Absolute Auto 0.2 X10*3/uL (0.0-0.4); Eosinophils Percent Auto 2.1 % (0-4); Hematocrit 38.7 % (42.0-52.0); Hemoglobin 13.5 g/dl (14.0-18.0); Imm Gran Abs Auto 0.04 X10*3/uL (0.00-0.03); Imm Gran Pct Auto 0.4 % (0.0-0.4); Lymphocytes Absolute Auto 2.5 X10*3/uL (1.2-4.9); Lymphocytes Percent Auto 25.1 % (20-40); Mean Corpuscular HGB Conc 34.9 g/dl (31.0-36.0); Mean Corpuscular Hemoglobin 30.1 pg (27.0-33.0); Mean Corpuscular Volume 86.4 fL (80.0-98.0); Mean Platelet Volume 10.3 fL (9.4-12.4); Monocytes Absolute Auto 0.8 X10*3/uL (0.1-1.2); Neutrophils Absolute Auto 6.3 x10*3/uL (2.0-8.3); Neutrophils Percent Auto 63.9 % (45-73); Platelet Count 191 X10*3/uL (160-400); Red Blood Count 4.48 X10*6/uL (4.60-5.80); Red Cell Distribution Width 13.5 % (11.0-16.0); White Blood Count 9.9 X10*3/uL (4.8-10.8)
[2024-07-08] MEDS: ondansetron HCL 4 MG/2 ML VIAL IVPUSH (06:32)
[2024-07-08] MEDS: Ketorolac Tromethamine 30 MG/ML VIAL IVPUSH (06:32)
[2024-07-08 06:46] LABS: Alanine Aminotransferase 15 U/L (0-40); Albumin Level 4.4 g/dL (3.5-5.0); Alkaline Phosphatase 81 U/L (39-117); Anion Gap 16 (12-20); Aspartate Amino Transferase 21 U/L (5-37); Bilirubin Total 0.6 mg/dL (0.0-1.0); Blood Urea Nitrogen 19 mg/dL (9-16); Carbon Dioxide 21 mmol/L (22-29); Chloride 110 mmol/L (96-108); Creatinine Clr Calc Pharmacy 73.3; Estimated Glomerular Filt Rate > 60; Glucose Random 131 mg/dL (60-115); Potassium 3.5 mmol/L (3.3-5.1); Sodium 143 mmol/L (135-145); Total Protein 7.4 g/dL (6.5-8.0)
[2024-07-08 07:00] VITALS: BP 156/89; PULSE 78; RESP 16; O2SAT 97
--- NOTE | 2024-07-08 07:23 | PC.NURSE ---
Pt reports no pain at this time just nausea. Plan for CT scan. Appears comfortable
[2024-07-08] MEDS: 0.9 % Sodium Chloride 1,000 ML 999 ML IV (07:27)
[2024-07-08] MEDS: Metoclopramide HCl 10 MG/2 ML VIAL IVPUSH (07:27)
[2024-07-08 07:46] LABS: Lipase 12 U/L (8-78); Magnesium 1.7 mg/dL (1.6-2.6)
--- NOTE | 2024-07-08 07:50 | ED.MALEGU ---
HPI - Male Genitourinary General Chief complaint: Urogenital-Male Stated complaint: back pain & left leg pain Time Seen by Provider: 07/08/24 07:11 Source: patient, RN notes reviewed and old records reviewed Mode of arrival: ambulatory History of Present Illness ED Provider: Rosaura Majano PA-C HPI Narrative: 59-year-old male with a past medical history HLD, presenting to the ED complaining of left flank pain radiating to groin since yesterday with associated nausea and vomiting. Also reports some hematuria noted yesterday. Denies fever, chills, dysuria, testicular pain, diarrhea Related Data Previous Rx's ?Medication ?Instructions ?Recorded atorvastatin 80 mg tablet 80 mg PO .BEDTIME Q48H #90 tabs 08/17/23 fenofibrate 54 mg tablet 54 mg PO DAILY 90 days #90 tabs 11/28/23 cholecalciferol (vitamin D3) 50 50 mcg PO DAILY 90 days #90 caps 12/05/23 mcg (2,000 unit) capsule (Vitamin D3) pantoprazole 40 mg tablet,delayed 40 mg PO QAM 90 days #90 tabs 02/02/24 release hydrocodone 5 mg-acetaminophen 325 1 tab PO Q8H PRN pain, severe 3 07/08/24 mg tablet days #5 tabs naproxen 500 mg tablet 500 mg PO BID PRN pain 10 days #20 07/08/24 tabs tamsulosin 0.4 mg capsule (Flomax) 0.4 mg PO DAILY #14 caps 07/08/24 Allergies Allergy/AdvReac Type Severity Reaction Status Date / Time No Known Allergies Allergy Verified 07/08/24 06:06 [No Known Allergies*] Review of Systems Review of Systems: Yes all other systems are reviewed and are negative Constitutional: Constitutional: Reports as per [facility] Past Medical History Attestation statement: The following information was validated with the patient. Source: old records reviewed Medical History Peptic ulcer Erectile dysfunction Encounter for physical examination Hemorrhoids Diverticulosis Mixed hyperlipidemia Surgical History History of esophagogastroduodenoscopy (EGD) Hx of colonoscopy History of inguinal hernia repair Family History Family History Father No problems noted. Mother Chronic mental illness Alzheimers disease Paternal Grandmother Cancer Maternal Uncle Cancer Paternal Aunt Cancer Paternal Uncle Colon cancer Sister Breast cancer Maternal Grandfather Colon cancer Paternal Grandfather Prostate cancer Family/Other Chronic mental illness Social History Social History Household Members: None Housing: Apartment Do you presently have visiting nurse or other home services: No Alcohol intake: current Alcohol intake frequency: does not drink Alcohol type: beer Patient Tobacco Use Status: Former Tobacco user Tobacco use type: Cigarette e-Cigarette/Vaping Use: Never Used Second Hand Smoke Exposure: No Substance Use Type: Marijuana service: No Current occupational status: employed Current occupational exposures/hazards: No Cognitive needs: No Hearing needs: No Vision needs: Yes Physical Exam Vital Signs: Vital Signs: Last Vital Signs Temp 97.0 F 07/08/24 11:56 Pulse 71 07/08/24 11:56 Resp 16 07/08/24 11:56 BP 142/80 H 07/08/24 11:56 Pulse Ox 100 07/08/24 11:56 O2 Del Method Room Air 07/08/24 11:56 BMI result Body Mass Index 21.5 Const: General: cooperative, healthy appearing and no acute distress Orientation/consciousness: patient oriented x3 Limitations: no limitations HEENT: Head: Yes normal to inspection and Yes atraumatic Ears: hearing grossly normal bilaterally General nose exam: Normal external nose present Face and sinus: Yes normal facial exam Eyes: General: appearance normal, both eyes and all related structures EOM: EOMs intact bilaterally Neck: Neck: Yes normal visual inspection and Yes no meningeal signs Resp: Effort & Inspection: normal respiratory effort and no respiratory distress Cardio: Rate: regular rate GI: Inspection: Yes normal to inspection Palpation (GI): Soft to palpation, Tenderness to palpation present (GI) in the LLQ; with no rebound tenderness, no guarding and not rigid : General: Yes CVA tenderness on the left Back/Spine/Pelvis: Back: CVA tenderness Skin: Rashes: no rashes Wounds: no wounds Neuro: General: patient oriented x3, tone normal and no meningeal signs Cranial nerves: Yes CN's II-XII intact bilaterally Gait exam (Neuro): Normal gait present Extrem: General: Yes normal to inspection Course Course Course Narrative: -0932-- no leukocytosis. H/H stable. Labs otherwise reassuring CT abdomen pelvis wo IV con IMPRESSION: 1. Mild to moderate left hydronephrosis and hydroureter secondary to a 4 mm of collecting calculus at the left UVJ. 2. There is a 2 mm nonobstructing right renal calculus. Right kidney otherwise normal. 3. Possible tiny type I hiatus hernia. 4. Moderate prostate enlargement. > patient reports symptomatic improvement / resolution at present. -1056-- UA with RBCs, not infected. On re-evaluation reports pain has resolved. Plan to discharge home with Flomax, pain control for breakthrough pain and urology follow up. Results discussed with patient including worrisome signs and symptoms and strict return precautions, and when to return to the emergency department. They verbalized understanding and feel safe for discharge at this time. Medications Administered Discontinued Medications Generic Name Dose Route Start Last Admin Trade Name Freq PRN Reason Stop Dose Admin Sodium Chloride 1,000 mls @ 999 mls/hr 07/08/24 07:30 07/08/24 08:36 Ns IV 07/08/24 08:30 Infused .Q1H1M LANA Infusion Ketorolac Tromethamine 30 mg 07/08/24 06:19 07/08/24 06:32 Ketorolac Tromethamine 30 Mg/Ml Vial IVPUSH 07/08/24 06:20 30 mg ONCE ONE Administration Metoclopramide HCl 10 mg 07/08/24 07:20 07/08/24 07:27 Metoclopramide Hcl 10 Mg/2 Ml Vial IVPUSH 07/08/24 07:21 10 mg ONCE ONE Administration Morphine Sulfate 4 mg 07/08/24 08:39 07/08/24 09:04 Morphine Sulfate 4 Mg/Ml Cartridge IVPUSH 07/08/24 08:40 Not Given ONCE ONE Protocol Ondansetron HCl 4 mg 07/08/24 06:19 07/08/24 06:32 Ondansetron Hcl 4 Mg/2 Ml Vial IVPUSH 07/08/24 06:20 4 mg ONCE ONE Administration Tamsulosin HCl 0.4 mg 07/08/24 09:33 07/08/24 10:09 Tamsulosin Hcl 0.4 Mg Capsule PO 07/08/24 09:34 0.4 mg ONCE ONE Administration Medical Decision Making Medical Decision Making MDM Narrative: 59-year-old male with a past medical history HLD, presenting to the ED complaining of left flank pain radiating to groin since yesterday with associated nausea and vomiting. Also reports some hematuria noted yesterday. on exam vital signs stable, NAD, nontoxic appearing, left CVAT and left lower quadrant abdominal tenderness noted. No rebound or guarding. Concern for renal stone Vs pyelo vs UTI. Lower suspicion for acute diverticulitis / appendicitis or testicular torsion at this time Plan: labs, UA, CT, IVF, pain control, re-evaluate Please refer to course for remaining clinical decision making, interpretation of labs/imaging results, and discussions with consultants and/or family members. Differential Diagnosis Differential Diagnoses: The differential diagnosis associated with the presentation includes As above Admission/Observation Consideration of admission/observation: Escalation of care including admission/observation considered Lab Data [facility] Lab Attestation statement: I reviewed the patient's lab results. 07/08/24 06:16 07/08/24 06:16 Labs: Lab Results 07/08/24 07/08/24 Range/Units 06:16 10:04 WBC 9.9 (4.8-10.8) X10*3/uL RBC 4.48 L (4.60-5.80) X10*6/uL Hgb 13.5 L (14.0-18.0) g/dl Hct 38.7 L (42.0-52.0) % MCV 86.4 (80.0-98.0) fL MCH 30.1 (27.0-33.0) pg MCHC 34.9 (31.0-36.0) g/dl RDW 13.5 (11.0-16.0) % Plt Count 191 (160-400) X10*3/uL MPV 10.3 (9.4-12.4) fL Immature Gran % (Auto) 0.4 (0.0-0.4) % Neut % (Auto) 63.9 (45-73) % Lymph % (Auto) 25.1 (20-40) % [place] % (Auto) 8.0 (2-11) % Eos % (Auto) 2.1 (0-4) % Baso % (Auto) 0.5 (0-2) % Lymph # (Auto) 2.5 (1.2-4.9) X10*3/uL [place] # (Auto) 0.8 (0.1-1.2) X10*3/uL Eos # (Auto) 0.2 (0.0-0.4) X10*3/uL Baso # (Auto) 0.1 (0.0-0.2) X10*3/uL Abs Immat Gran (auto) 0.04 H (0.00-0.03) X10*3/uL Absolute Neuts (auto) 6.3 (2.0-8.3) x10*3/uL Absolute Nucleated RBC 0.000 (0.0-0.012) X10*3/uL Nucleated RBC % (auto) 0.0 (0.0-0.2) /100WBC Sodium 143 (135-145) mmol/L Potassium 3.5 (3.3-5.1) mmol/L Chloride 110 H (96-108) mmol/L Carbon Dioxide 21 L (22-29) mmol/L Anion Gap 16 (12-20) BUN 19 H (9-16) mg/dL Creatinine 0.92 (0.5-1.4) mg/dL Estim Creat Clear Calc 73.3 Estimated GFR > 60 Random Glucose 131 H (60-115) mg/dL Calcium 10.0 D (8.4-10.2) mg/dL Magnesium 1.7 (1.6-2.6) mg/dL Total Bilirubin 0.6 (0.0-1.0) mg/dL AST 21 (5-37) U/L ALT 15 (0-40) U/L Alkaline Phosphatase 81 (39-117) U/L Total Protein 7.4 (6.5-8.0) g/dL Albumin 4.4 (3.5-5.0) g/dL Lipase 12 (8-78) U/L Urine Color Yellow Urine Appearance Clear Urine pH >= 9.0 (5.0-9.0) Ur Specific [place] 1.010 (1.005-1.025) Urine Protein Negative (Neg-Trace) mg/dL Urine Glucose (UA) 100 H (Negative) mg/dL Urine Ketones Negative (Negative) mg/dL Urine Blood Moderate (2+) H (Negative) Urine Nitrite Negative (Negative) Ur Leukocyte Esterase Negative (Negative) Urine RBC 11-20 H (0-2) /HPF Urine WBC 0-5 (0-5) /HPF Ur Squamous Epith Cells 0-2 (0-2) /HPF Urine Bacteria None Seen (None Seen) Hyaline Casts 0-2 (0-2) /LPF Independent Interpretation I performed an independent interpretation of an: CT Scan Radiology Impression Discussion of test interpretation with radiology: I have reviewed the radiologist's reading. Independent Historian Clinical information obtained from an independent historian. History obtained from or confirmed by: Other External Record Review External record reviewed: Inpatient record, Office record, Outpatient record, Prior outpatient labs, Prior outpatient radiology, Primary care record and Outside ED record Tests considered The following testing was considered but not selected: As above Prescription Management I considered prescription management with: Pain Medication Social Determinants Patient?s care significantly limited by Social Determinants of Health including: Other Social Determinant of Health Discharge Plan Discharge Clinical Impression: Calculus of ureterovesical junction (UVJ), Hydronephrosis of left kidney Patient Disposition: Home, Self-Care Instructions: Hydronephrosis (ED), Ureteral Stones (ED) Additional Instructions: your blood work is reassuring Your CT scan shows mild to moderate hydronephrosis and an obstructing 4 mm stone of your left UVJ. 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 Naproxen as an anti-inflammatory /pain medicine, take with food Hurley as an opiate pain medication, take only when pain is severe for the next 3 days YOU NEED TO FOLLOW-UP WITH UROLOGY. CALL TODAY TO MAKE AN APPOINTMENT if your pain recurs, persists, is unbearable you have fever, persistent nausea / vomiting return to the ED Prescriptions: New hydrocodone-acetaminophen 5-325 mg tablet 1 tab PO Q8H PRN (Reason: pain, severe) 3 Days Qty: 5 0RF Rx Instructions: Partial Fill upon patient request. tamsulosin [Flomax] 0.4 mg capsule 0.4 mg PO DAILY Qty: 14 0RF naproxen 500 mg tablet 500 mg PO BID PRN (Reason: pain) 10 Days Qty: 20 0RF No Action atorvastatin 80 mg tablet 80 mg PO .BEDTIME Q48H Qty: 90 1RF fenofibrate 54 mg tablet 54 mg PO DAILY 90 Days Qty: 90 1RF cholecalciferol (vitamin D3) [Vitamin D3] 50 mcg (2,000 unit) capsule 50 mcg PO DAILY 90 Days Qty: 90 2RF pantoprazole 40 mg tablet,delayed release (DR/EC) 40 mg PO QAM 90 Days Qty: 90 1RF Referrals: [facility] [place] Urology Services [Provider Group] - 5 days Interventions: ED Discharge Assessment Last Done: 07/08/24 11:56 Discharge Date/Time: 07/08/24 11:56 Print Language: Kazakh
[2024-07-08] MEDS: Tamsulosin HCL 0.4 MG CAPSULE PO (10:09)
[2024-07-08 10:21] LABS: Appearance Urine Clear; Color Urine Yellow; Glucose Urine UA 100 mg/dL (Negative); Leukocyte Esterase Urine Negative (Negative); Nitrite Urine Negative (Negative); PH >= 9.0 (5.0-9.0); UMIC TRIGGER UACC YES; Urine Blood Moderate (2+) (Negative); Urine Ketones Negative (Negative); Urine Protein Negative (Neg-Trace)
[2024-07-08 10:23] LABS: Bacteria Urine None Seen (None Seen); Hyaline Casts Urine 0-2 /LPF (0-2); Squamous Epithelial Cell Urine 0-2 /HPF (0-2); WBC Urine 0-5 /HPF (0-5)
[2024-07-08 11:56] VITALS: BP 142/80; PULSE 71; RESP 16; TEMP 36.1; O2SAT 100
== END 2024-07-08 11:56 | disposition home or self-care (01) ==
PROVIDERS: Physician Assistant; Emergency Provider Emergency Medicine; PCP Physician Assistant
DX: N13.2 Hydronephrosis with renal and ureteral calculous obstruction (principal); M54.50 Low back pain, unspecified; M79.605 Pain in left leg; R10.2 Pelvic and perineal pain; R31.9 Hematuria, unspecified; R11.2 Nausea with vomiting, unspecified; Z87.891 Personal history of nicotine dependence; Z79.899 Other long term (current) drug therapy
CPT/HCPCS: 36415; 74176; 80053; 81001; 83690; 83735; 85025; 96361; 96374; 96375; 99284; 99285; J1885; J2405; J2765

== ENCOUNTER → 2024-07-08 07:20 | Outpatient (BNV) | payer BC, SELFPAY | PROVIDERS: Emergency Provider Emergency Medicine; PCP Physician Assistant; Visit Provider Radiology Diagnostic Radiology | DX: N20.0 Calculus of kidney (principal); N40.0 Benign prostatic hyperplasia without lower urinary tract symptoms | CPT/HCPCS: 74176 ==

== ENCOUNTER 2024-08-05 07:48 | Outpatient (AMB) | payer BC, SELFPAY ==
--- NOTE | 2024-08-05 07:50 | A.OFFVIS_ITS ---
Vital Signs 08/05/24 07:51 Height 5 ft 6 in Weight 125 lb BMI 20.2 BP 106/68 Blood Pressure Location Lt brachial Position Sitting Pulse 75 Pulse Oximetry (%) 97 Oxygen Delivery Method Room Air Intake Visit Reasons: 6 month f/u GERD Intake Note: Patient 6 month follow up for Diverticulosis and GERD. Patient cc: abdominal discomfort on and off, denies any other GI issues for today. Filer Metal Patterns Required: No Accompanied by: Self / Same As Patient Allergies No Known Allergies [No Known Allergies*] Allergy (Verified 08/05/24 07:49) Medication List - Last Reconciled 08/05/24 by Deysi Ross MD atorvastatin 80 mg PO .BEDTIME Q48H cholecalciferol (vitamin D3) (Vitamin D3) 50 mcg PO DAILY 90 days fenofibrate 54 mg PO DAILY 90 days hydrocodone-acetaminophen 5-325 mg 1 tab PO Q8H PRN 3 days naproxen 500 mg PO BID PRN 10 days pantoprazole 40 mg PO QAM 90 days tamsulosin (Flomax) 0.4 mg PO DAILY HPI HPI 6 month f/u GERD: Details: GI clinic visit for this 59-year-old male for follow-up Pt was hospitalized at [facility] [place] (07/12 TO 07/13/22) for GI bleeding and anemia TODAY'S VISIT: Patient cc: abdominal discomfort on and off, denies any other GI issues for today. 07/08/[address] [facility] [place] ED with abd pain and diagnosed with kidney stones Scheduled to see Urology on 08/24/24 Notes intermittent abd pain in the left flank Lost some weight since he was eating less for 2 weeks due to abdominal pain. Has changed his diet and eating a lot of salads and sometimes fish and does not eat meat. Advised to take Tofu, low fat cottage cheese, beans and lentils to increase his protien intake PAST VISITS: Appetite improved and has gained 5 lbs Denies vomiting or diarrhea Heartburn well controlled with pantoprazole Work has been less stressful He was able to visit hs 82 year old Mom (with Demetnia) in [place] this year Dad is 85 and takes care of his Mom. Has 3 sisters in [place] and a brother in the [place] Patient follow up for Diverticulosis and lab results Unexplained wt loss of 10 lbs over the past year. Denies any change in eating habits. 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 EGD and colon results reviewed Still has intermittent epigastric/lower chest pain 4/10 Feeling more hungry and getting his appetite back Taking antibiotics for H pylori - still has 4-5 more days. Patient denies major cardiac or pulmonary problems, He admits to snoring and denies sleep apnea Denies problems with anesthesia in the past. Pt took an Aleve last week for abd pain and denies being on chronic anticoagulation. 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 Pt reports FH of colon cancer in his maternal GF at age 75 yrs Patient denies known family history of colon polyps or other GI malignancies. 07/02/[address] SCAN SHOWED: 1.? No acute findings in the abdomen or pelvis. No inflammatory changes. 2.? Nonobstructing left upper pole renal calculus. ENDOSCOPIC STUDIES: 10/21/22 EGD AND COLON SHOWED: Endoscopy Findings: STOMACH: Mild gastric erythema. Biopsies were obtained. Healed gastric ulcer and Grade 2 flap valve on retroflexed examination of the cardia. Colonoscopy Findings: One medium sized and one small polyps removed (small polyp was not retrieved) Moderate diverticulosis seen in the left colon Moderate hemorrhoids on retroflexed exam. Plan: Repeat Colonoscopy interval based on path results - in 3 years if polyps are adenomatous and 10 years if polyps are hyperplastic. (If rectal polyp shows advanced histology - then repeat flex sig in 3 - 6 months to check polypectomy site) 07/12/22 EGD SHOWED STOMACH:? A large deep 3 cms x 4 cms ulcer crater noted at the cardia with a few red spots without active bleeding just distal to GEJ from 43 to 46 cms - biopsies obtained. Moderate diffuse gastric erythema with a 5-6 mm superficial non-bleeding ulcer at the antrum. Antral biopsies were obtained to check for H pylori. DUODENUM: Edematous folds in the proximal bulb and normal bulb and descending duodenum No blood seen in the upper GI tract during upper endoscopy. Black stools likely from large ulcer at cardia - worrisome for malignancy. Plan:? Repeat CBC in the am Chest and abdominal CT scan with IV and PO contrast. Check CEA - added to am labs. If biopsies are positive for malignancy, pt will need further evaluation with? endoscopic ultrasound and Oncology consultation If biopsies are negative for malignancy, repeat EGD in 6 to 8 weeks to confirm gastric ulcer has healed Above findings were reviewed with the patient. ADDENDUM: BIOPSIES SHOWED: A.? Stomach, antrum, biopsy: - Antral-type mucosa with severe chronic active inflammation. - Positive for H pylori.B.? Stomach, cardia ulcer, biopsy: - Cardiac-type mucosa with severe chronic active inflammation and regenerative changes. - Positive for H pylori.CEA was normal 07/13/[address] SCAN WITH CONTRAST SHOWED: 1. Prominent wall thickening of the gastric fundus, increased when compared to the prior examination. No significant enhancement. Findings could indicate acute gastritis. No pneumatosis or evidence of perforation. 2. No intra-abdominal mass, lymphadenopathy, or ascites. 3. No hydronephrosis or nephrolithiasis. Previously seen left upperpole renal stone is not well visualized, likely related to contrast. 4. Prominent prostatomegaly with central calcifications, unchanged. 5. No pulmonary nodule, mass, or confluent airspace consolidation. PAST GI HISTORY BY REVIEW OF MEDICAL RECORDS: 07/12/22 patient was seen during recent hospitalization at [facility] [place]: 57 [address]M [address] [facility] [place] [facility] ED on 07/02/2022 with complaints of nausea vomiting and lower chest/midepigastric pain.?CT scan of abdomen pelvis was negative and patient was discharged home on PO ondansetron.? Pt reports worsening of abdominal pain over the past week Pain is 9/10 in intensity, constant and gets worse after eating solid food. Pt complains of nausea and had an episode on vomiting today containing streaks of blood.? About 3 days prior to presentation he started to develop black tardy stools - 1- 2 times a day. Pt reports wt loss of 9 lbs over the past 2 weeks. Pt came to the ER today after he noted increased abdominal pain with some dizziness.? Chest x-ray was normal hemoglobin was stable.? Pt was admitted for GI evaluation PAST EGD/COLONOSCOPY: 11/2018 Pt had a colonoscopy and two medium sized adenomatous polyps were removed.FU colon was advised in 3 yrs 2018:? Pt was seen at [facility] [place] [facility] ED with abdominal pain and discharged on Prilosec, Sucralfate and?bentyl [facility] Medical History Peptic ulcer Erectile dysfunction Encounter for physical examination Hemorrhoids Diverticulosis Mixed hyperlipidemia Surgical History History of esophagogastroduodenoscopy (EGD) Hx of colonoscopy History of inguinal hernia repair Family History Father No problems noted. Mother Chronic mental illness Alzheimers disease Paternal Grandmother Cancer Maternal Uncle Cancer Paternal Aunt Cancer Paternal Uncle Colon cancer Sister Breast cancer Maternal Grandfather Colon cancer Paternal Grandfather Prostate cancer Family/Other Chronic mental illness Social History Household Members: None Housing: Apartment Do you presently have visiting nurse or other home services: No Alcohol intake: current Alcohol intake frequency: does not drink Alcohol type: beer Patient Tobacco Use Status: Former Tobacco user Tobacco use type: Cigarette e-Cigarette/Vaping Use: Never Used Second Hand Smoke Exposure: No Substance Use Type: Marijuana service: No Current occupational status: employed Current occupational exposures/hazards: No Cognitive needs: No Hearing needs: No Vision needs: Yes Review of Systems Const All systems reviewed & are unremarkable except as noted in HPI and below Physical Exam Vital Signs: Last Vital Signs Pulse 75 08/05/24 07:51 BP 106/68 08/05/24 07:51 Pulse Ox 97 08/05/24 07:51 Oxygen Delivery Method Room Air 08/05/24 07:51 BMI result Body Mass Index 20.2 Const General: healthy appearing and no acute distress Nutritional Appearance: average body habitus Orientation/consciousness: patient oriented x3 Limitations: no limitations HEENT Head: Yes normal to inspection Ears: hearing grossly normal bilaterally Eyes Sclerae: sclerae normal Pupils: Equal, round and reactive pupils present Neck Neck: Yes normal visual inspection Chest Chest palpation & inspection: normal inspection of the chest Resp Effort & Inspection: normal respiratory effort Auscultation: clear to auscultation bilaterally Cardio Palpation: normal PMI Rate: regular rate Rhythm: regular rhythm Heart sounds: S1 normal heart sound present, S2 normal heart sound present and no murmurs GI Palpation (GI): Soft to palpation, nontender and No hepatosplenomegaly present Auscultation: normal bowel sounds Rectal Exam - Male: Yes deferred Skin General skin exam: no rashes or lesions noted Neuro General: patient oriented x3, gait normal and moves all extremities Cranial nerves: Yes Equal, round and reactive pupils present Psych Appearance: grossly normal Mental Status: mental status grossly normal Assessment & Plan Assessment & Plan (1) Diverticulosis: Code(s): K57.90 - Diverticulosis of intestine, part unspecified, without perforation or abscess without bleeding Category: Medical (2) Hemorrhoids: Code(s): K64.9 - Unspecified hemorrhoids Category: Medical (3) GERD (gastroesophageal reflux disease): Code(s): K21.9 - Gastro-esophageal reflux disease without esophagitis Category: Medical Qualifiers: Esophagitis presence: with esophagitis Esophagitis bleeding: with hemorrhage Qualified Code(s): K21.01 - Gastro-esophageal reflux disease with esophagitis, with bleeding (4) History of colon polyps: Code(s): Z86.010 - Personal history of colon polyps Category: Medical (5) Iron deficiency anemia due to chronic blood loss: Code(s): D50.0 - Iron deficiency anemia secondary to blood loss (chronic) Category: Medical Plan 59 [address] [facility] [place] 07/12/22 with nausea, vomiting, lower chest/midepigastric pain and black tarry stools.? 07/02/22 CT scan of abdomen pelvis was negative.? Pt reported wt loss of 9 lbs over the preceding 2 weeks. EGD was performed and findings as noted above Pt was prescribed antibiotics (quadruple therapy) for H pylori detected on gastric biopsy 09/2022 EGD (FU of gastric ulcer) with same-day colonoscopy (FU of colon polyps) were performed and results as noted above. Repeat colon advised in 3 years (due 09/2025) He was advised to decrease omeprazole to 40 mg once a day. 05/08/22 Pt advised to check labs and continue taking Omeprazole 40 mg daily 11/06/23 Patient follow up for Diverticulosis and lab results Unexplained wt loss of 10 lbs over the past year. Pt advised to continue Pantoprazole 40 mg daily 02/02/24 GERD well controlled with Pantoprazole Has gained 5 lbs 08/05/24 Intermittent left flank pain due to a 4 mm obstructing calculus at the left UVJ. Scheduled to see Urology on 08/24/2024 FU in 6 months Coding Level of Care Code Est Pt Level 4 (15151) Diagnoses Diverticulosis K57.90 Hemorrhoids K64.9 Gastroesophageal reflux disease with esophagitis and hemorrhage K21.01 Esophagitis presence: with esophagitis Esophagitis bleeding: with hemorrhage History of colon polyps Z86.010 Iron deficiency anemia due to chronic blood loss D50.0 Time Spent (min) 20
[2024-08-05 07:51] VITALS: BP 106/68; PULSE 75; O2SAT 97; BMI 20.2
== END 2024-08-05 08:32 | disposition home or self-care (01) ==
LOC: HO.HGI 07:48
PROVIDERS: PCP Physician Assistant; Visit Provider Internal Medicine Gastroenterology
DX: K57.90 Diverticulosis of intestine, part unspecified, without perforation or abscess without bleeding (principal); K64.9 Unspecified hemorrhoids; K21.01 Gastro-esophageal reflux disease with esophagitis, with bleeding; Z86.0100 Personal history of colon polyps, unspecified; D50.0 Iron deficiency anemia secondary to blood loss (chronic)
CPT/HCPCS: 99214

== ENCOUNTER → 2024-08-05 07:48 | Outpatient (BNVA) | payer BC, SELFPAY | PROVIDERS: PCP Physician Assistant; Visit Provider Internal Medicine Gastroenterology ==

== ENCOUNTER 2024-08-24 09:41 | Outpatient (AMB) | payer BC, SELFPAY ==
--- NOTE | 2024-08-24 10:06 | A.OFFVIS_ITS ---
Intake Visit Reasons: bilateral kidney stones/hydro Intake Note: New Patient presents for initial visit for bilateral kidney stones Urology Medications: none Blood Thinner: none Commissioned Sales Associate Required: No Accompanied by: Self / Same As Patient Allergies No Known Allergies [No Known Allergies*] Allergy (Verified 08/24/24 10:51) Medication List - Last Reconciled 08/24/24 by MARV Deng atorvastatin 80 mg PO .BEDTIME Q48H pantoprazole 40 mg PO QAM 90 days HPI Comments Details: Ronen is a pleasant 59-year-old male patient of Dr. Lozoya. He has a past medical history of peptic ulcer, ED, hemorrhoids, diverticulitis, and mixed hyperlipidemia. He presents to the office today as a new patient for nephrolithiasis. In discussion with the patient today he reports a longstanding history of nephrolithiasis however never requiring surgical intervention. He reports having seeked emergency room care last month for left-sided flank pain and groin pain he had been experiencing at which time a CT of the abdomen was ordered and performed. These results were reviewed and communicated with the patient today 08/20 left kidney with [id number] hydronephrosis and hydroureter 4 mm obstructing calculus at the left UVJ. Right kidney with 2 mm nonobstructing calculus within the upper pole otherwise within normal limits. The bladder is unremarkable. He reports pain he had been experiencing has since subsided. He discusses having a family history of nephrolithiasis as his mom has a history of kidney stones as well as his sister. Imaging also noted enlarged prostate. QUINN offered however deferred. In review of patient's chart it appears PSA 08/18 0.4. He denies any bothersome urinary issues. He denies urinary urgency, urinary frequency, incontinence, nocturia, hematuria, dysuria, foul smelling urine, changes to urinary stream, flank pain, fever, and or chills. He is happy with his current voiding parameters. In office urinalysis results reviewed with the patient today. We discussed at length potential causes of nephrolithiasis as well as further workup in risks and benefits of this workup. All questions were answered. He otherwise offers no other issues or concerns at this time. Plan For nephrolithiasis, I have advised an increase in fluid intake to at least 1- 1.5 liters a day, considering the patient's current fluid intake is slightly below this threshold. This can promote stone passage and prevent recurrence. An ultrasound is planned to monitor for hydronephrosis and ensure no lingering effects from the previously impacted stone. The patient is instructed on dietary modifications to avoid excessive calcium oxalate-rich foods while possibly introducing lemon juice to water intake within limits set by openness about his GERD. No surgery or aggressive interventions are necessary now as symptoms have subsided and stones are below the size threshold that conventionally necessitates surgical intervention. Discussions covered the hereditary likelihood of nephrolithiasis and emphasized avoiding known dietary triggers on his family?s experience. Consent for conservative monitoring and management has been documented, having outlined potential implications and alternatives. Patient was informed and verbally consented to the use of an ambient scribe for clinic note documentation during this visit. PENDING SALE TO [facility] Medical History Peptic ulcer Erectile dysfunction Encounter for physical examination Hemorrhoids Diverticulosis Mixed hyperlipidemia Surgical History History of esophagogastroduodenoscopy (EGD) Hx of colonoscopy History of inguinal hernia repair Family History Father No problems noted. Mother Chronic mental illness Alzheimers disease Paternal Grandmother Cancer Maternal Uncle Cancer Paternal Aunt Cancer Paternal Uncle Colon cancer Sister Breast cancer Maternal Grandfather Colon cancer Paternal Grandfather Prostate cancer Family/Other Chronic mental illness Social History Household Members: None Housing: Apartment Do you presently have visiting nurse or other home services: No Alcohol intake: current Alcohol intake frequency: does not drink Alcohol type: beer Patient Tobacco Use Status: Former Tobacco user Tobacco use type: Cigarette e-Cigarette/Vaping Use: Never Used Second Hand Smoke Exposure: No Substance Use Type: Marijuana service: No Current occupational status: employed Current occupational exposures/hazards: No Cognitive needs: No Hearing needs: No Vision needs: Yes Review of Systems Const All systems reviewed & are unremarkable except as noted in HPI and below Physical Exam Const General: cooperative, healthy appearing, comfortable, no acute distress, well developed, alert and awake Orientation/consciousness: patient oriented x3 Limitations: no limitations HEENT Head: Yes normal to inspection, Yes normocephalic and Yes atraumatic Ears: hearing grossly normal bilaterally Eyes General: appearance normal, both eyes and all related structures Neck Neck: Yes normal visual inspection and Yes trachea midline Chest Chest palpation & inspection: normal inspection of the chest Resp Effort & Inspection: normal respiratory effort and able to speak in complete sentences Cardio Rate: regular rate GI Inspection: Yes normal to inspection General: Yes no CVA tenderness Back/Spine/Pelvis Back: no CVA tenderness Skin General skin exam: no rashes or lesions noted Neuro General: patient oriented x3 Extrem General: Yes normal to inspection Psych Appearance: grossly normal and well kempt Mental Status: mental status grossly normal Speech and movement: Normal speech and movement present and Clear speech present Affect: normal affect Attitude: cooperative Thought process: Normal thought process present Thought content: Normal thought content present Insight: Fair insight present (Psych) Judgement: Fair judgement present (Psych) Results AMB Urinalysis, Automated UA Leukoctes 0 Maggi/uL Last Edit by [employer] on 08/24/24 10:23 UA Nitrite Negative Last Edit by [employer] on 08/24/24 10:23 UA Urobilinogen 0.2 mg/dL Last Edit by [employer] on 08/24/24 10:23 UA Protein 15 mg/dL Last Edit by [employer] on 08/24/24 10:23 UA pH 6.0 Last Edit by [employer] on 08/24/24 10:23 UA Blood 25 Harley/uL Last Edit by [employer] on 08/24/24 10:23 UA Specific [place] 1.025 Last Edit by [employer] on 08/24/24 10:23 UA Ketone Last Edit by [employer] on 08/24/24 10:23 UA Bilirubin 0 mg/dL Last Edit by [employer] on 08/24/24 10:23 UA Glucose 0 mg/dL Last Edit by [employer] on 08/24/24 10:23 Results Reviewed Results Reviewed: Laboratory Last Values Urine pH (Auto) 6.0 08/24/24 10:14 Specific [place] (Auto) 1.025 08/24/24 10:14 Urine Protein (Auto) 15 mg/dL 08/24/24 10:14 Glucose (UA)(Auto) 0 mg/dL 08/24/24 10:14 Urine Blood (Auto) 25 Harley/uL 08/24/24 10:14 Urine Nitrite (Auto) Negative 08/24/24 10:14 Urine Bilirubin (Auto) 0 mg/dL 08/24/24 10:14 Urine Urobilinogen (Auto) 0.2 mg/dL 08/24/24 10:14 Leukocyte Esterase (Auto) 0 Maggi/uL 08/24/24 10:14 Date of Service: 07/08/24 Procedure(s): CT abdomen pelvis wo IV con FINDINGS: LUNG BASES: Lung bases appear clear bilaterally. No effusions. Tiny right morganii hernia. Heart size normal. There are RCA calcifications. No pericardial effusion. Tiny type I hiatus hernia suspected. LIVER, GALLBLADDER, AND BILIARY TREE: The liver is normal in size, shape, and attenuation. No focal hepatic lesion or biliary ductal dilatation is present. The gallbladder is unremarkable with no evidence of radiopaque gallstones, gallbladder wall thickening, or obvious pericholecystic inflammatory changes. PANCREAS: Unremarkable. SPLEEN: Unremarkable. ADRENAL GLANDS: Unremarkable. KIDNEYS AND URETERS: Left Kidney: No intrinsic renal lesion. No renal calculi. Mild to moderate hydronephrosis and hydroureter. 4 mm obstructing calculus at the left UVJ. Right Kidney: 2 mm nonobstructing calculus within the upper pole region. Right kidney otherwise normal. Right ureter normal. BLADDER: Unremarkable. GASTROINTESTINAL TRACT: The small and large bowel are unremarkable. The appendix is unremarkable. Mildly radiodense material in the distal small bowel and colon, most likely distally. Rectum appears normal. Stomach, and duodenal sweep appear normal. ABDOMINAL WALL: No significant hernia is appreciated. LYMPH NODES: None enlarged. VASCULAR: Mild to moderate atheromatous aortobiiliac calcification. No aneurysm. PELVIC VISCERA: Moderate prostate enlargement with mild dystrophic central calcification. Prostate measures 5.0 cm in diameter. OSSEOUS STRUCTURES: No suspicious lytic or blastic bone lesion. Mild degenerative arthritis bilateral hip joints. IMPRESSION: 1. Mild to moderate left hydronephrosis and hydroureter secondary to a 4 mm of collecting calculus at the left UVJ. 2. There is a 2 mm nonobstructing right renal calculus. Right kidney otherwise normal. 3. Possible tiny type I hiatus hernia. 4. Moderate prostate enlargement. Assessment & Plan Assessment & Plan (1) Nephrolithiasis: Code(s): N20.0 - Calculus of kidney Category: Medical (2) Hydronephrosis concurrent with and due to calculi of kidney and ureter: Code(s): N13.2 - Hydronephrosis with renal and ureteral calculous obstruction Category: Medical (3) Enlarged prostate: Code(s): N40.0 - Benign prostatic hyperplasia without lower urinary tract symptoms Category: Medical Plan In office urinalysis results reviewed the patient today; as noted above. Recent CT results reviewed with the patient today; as noted above. He currently denies any bothersome urinary issues or concerns. He reports be happy with current voiding parameters. We discussed obtaining imaging to ensure resolution of hydronephrosis as patient is no longer having pain and believes he passed his kidney stone. We discussed enlarged prostate noted on imaging. QUINN offered however deferred. We discussed importance of adequate hydration relation to nephrolithiasis as well as overall health and well-being. We discussed adding 1 oz of lemon juice to water daily. Will obtain PSA. Follow-up in 1-3 months with imaging and PSA; or sooner with any issues, concerns, and or questions. Orders: Orders AMB Urinalysis Automated Today Z13.9 - Encounter for screening, unspecified US renal BI Today N20.0 - Calculus of kidney Prostate Specific Antigen Today N40.0 - Benign prostatic hyperplasia without lower urinary tract symptoms Patient Instructions: The patient had an opportunity to ask questions regarding the treatment plan. All questions were answered. Physical exam, labs, and imaging were discussed and reviewed in detail. As well as risks, benefits, and discussion of treatment choices. No major barriers to understanding were identified. The patient expressed understanding and agreement with the above treatment plan. The patient was made aware they should contact our office by phone for worsening of their current condition, the appearance of new symptoms, or with any questions or concerns. Compliance is encouraged with any medications and follow up testing that is ordered. It is a privilege to be allowed the opportunity to participate in? your urological care.? Again, if you have any questions or concerns If you have any questions or concerns please do not hesitate to contact me. The office is [phone]. This note is constructed using voice recognition software. While every effort has been made to ensure accuracy mixer attendant errors may have been included. Yours sincerely, MARV Deng Coding Level of Care Code New Pt Level 3 (38300) Diagnoses Nephrolithiasis N20.0 Hydronephrosis concurrent with and due to calculi of kidney and ureter N13.2 Enlarged prostate N40.0
== END 2024-08-24 10:47 | disposition home or self-care (01) ==
LOC: HO.HUSH 09:41
PROVIDERS: PCP Physician Assistant; Visit Provider Nurse Practitioner Family
DX: N20.0 Calculus of kidney (principal); N13.2 Hydronephrosis with renal and ureteral calculous obstruction; N40.0 Benign prostatic hyperplasia without lower urinary tract symptoms; Z13.9 Encounter for screening, unspecified
CPT/HCPCS: 99203

== ENCOUNTER → 2024-08-24 09:41 | Outpatient (BNVA) | payer BC, SELFPAY | PROVIDERS: PCP Physician Assistant; Visit Provider Nurse Practitioner Family | DX: N13.2 Hydronephrosis with renal and ureteral calculous obstruction (principal); N40.0 Benign prostatic hyperplasia without lower urinary tract symptoms | CPT/HCPCS: 81003 ==

== ENCOUNTER 2024-11-08 08:26 | Outpatient (REF) | payer BC, SELFPAY ==
--- NOTE | ~2024-11-08 | US_ITS ---
EXAMINATION: US KIDNEY BILATERAL HISTORY: N20.0 - Calculus of kidney TECHNIQUE: Real-time grayscale ultrasound imaging of the kidneys was performed and images were reviewed. COMPARISON: Correlation is made with an unenhanced CT of the abdomen dated 07/11/2024. FINDINGS: Right kidney: The right kidney measures 13.0 x 4.1 x 5.3 cm. Renal parenchymal echotexture and thickness are normal. There is a 4 mm cyst in the interpolar region demonstrating wall calcification. There is no hydronephrosis or renal calculi. Left Kidney: The left kidney measures 12.4 x 5.1 x 4.1 cm. Renal parenchymal echotexture and thickness are normal. There are no masses. There is a 2 mm nonobstructing calculus at the lower pole. No hydronephrosis. US/US renal BI IMPRESSION: 1. 4 mm right renal cyst. 2. 2 mm left renal calculus. Electronically signed by: Bernard Oconnor MD 11/08/2024 09:21 AM EDT
== END 2024-11-08 08:27 | disposition home or self-care (01) ==
LOC: HO.US 08:26
PROVIDERS: PCP Internal Medicine; Visit Provider Nurse Practitioner Family
DX: N20.0 Calculus of kidney (principal)
CPT/HCPCS: 76775

== ENCOUNTER → 2024-11-08 08:28 | Outpatient (BNV) | payer BC, SELFPAY | PROVIDERS: PCP Internal Medicine; Visit Provider Radiology Diagnostic Radiology | DX: N20.0 Calculus of kidney (principal); N28.1 Cyst of kidney, acquired | CPT/HCPCS: 76775 ==

== ENCOUNTER 2024-11-17 09:42 | Outpatient (REF) | payer BC, SELFPAY ==
[2024-11-17 12:23] LABS: Prostate Specific Antigen 0.42 ng/mL (<0.05-4.0)
== END 2024-11-17 09:43 | disposition home or self-care (01) ==
LOC: HO.LAB 09:42
PROVIDERS: PCP Internal Medicine; Visit Provider Nurse Practitioner Family
DX: N40.0 Benign prostatic hyperplasia without lower urinary tract symptoms (principal); Z12.5 Encounter for screening for malignant neoplasm of prostate
CPT/HCPCS: 36415; 84153

== ENCOUNTER 2024-11-25 10:38 | Outpatient (AMB) | payer BC, SELFPAY ==
--- NOTE | 2024-11-25 10:42 | MHC.OFFVIS ---
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 Lozoya. He has a past medical history of peptic ulcer, ED, hemorrhoids, diverticulitis, and mixed hyperlipidemia. He presents to the office today for follow-up of his nephrolithiasis. Recent renal imaging results reviewed with the patient today. 11/19 bilateral kidneys with no hydronephrosis or renal masses. Left kidney with nonobstructing 2 mm calculus in the lower pole. 4 mm cyst in the interpolar region of the right kidney. In discussion with the patient today reports to be doing and feeling well. He denies having had any bothersome urinary issues or concerns since his last office visit here. Recent PSA results reviewed with the patient today: PSA 08/18 0.4, 11/19 0.4 We discussed resolution of hydronephrosis as well as potential causes of nephrolithiasis as well as further treatment options and risks and benefits of these treatment options. In office urinalysis results reviewed with the patient today. When asked he denies urinary urgency, urinary frequency, incontinence, nocturia, hematuria, dysuria, foul smelling urine, changes to urinary stream, flank pain, fever, and or chills. He is happy with his current voiding parameters. All questions were answered. He otherwise offers no other issues or concerns at this time. [facility] Medical History Peptic ulcer Erectile dysfunction Encounter for physical examination Hemorrhoids Diverticulosis Mixed hyperlipidemia Surgical History History of esophagogastroduodenoscopy (EGD) Hx of colonoscopy History of inguinal hernia repair Family History Father No problems noted. Mother Chronic mental illness Alzheimers disease Paternal Grandmother Cancer Maternal Uncle Cancer Paternal Aunt Cancer Paternal Uncle Colon cancer Sister Breast cancer Maternal Grandfather Colon cancer Paternal Grandfather Prostate cancer Family/Other Chronic mental illness Social History Household Members: None Housing: Apartment Do you presently have visiting nurse or other home services: No Alcohol intake: current Alcohol intake frequency: does not drink Alcohol type: beer Patient Tobacco Use Status: Former Tobacco user Tobacco use type: Cigarette e-Cigarette/Vaping Use: Never Used Second Hand Smoke Exposure: No Substance Use Type: Marijuana service: No Current occupational status: employed Current occupational exposures/hazards: No Cognitive needs: No Hearing needs: No Vision needs: Yes Review of Systems Const All systems reviewed & are unremarkable except as noted in HPI and below Physical Exam Const General: cooperative, healthy appearing, comfortable, no acute distress, well developed, alert and awake Orientation/consciousness: patient oriented x3 Limitations: no limitations HEENT Head: Yes normal to inspection, Yes normocephalic and Yes atraumatic Ears: hearing grossly normal bilaterally Eyes General: appearance normal, both eyes and all related structures Neck Neck: Yes normal visual inspection and Yes trachea midline Chest Chest palpation & inspection: normal inspection of the chest Resp Effort & Inspection: normal respiratory effort and able to speak in complete sentences Cardio Rate: regular rate GI Inspection: Yes normal to inspection General: Yes no CVA tenderness Back/Spine/Pelvis Back: no CVA tenderness Skin General skin exam: no rashes or lesions noted Neuro General: patient oriented x3 Extrem General: Yes normal to inspection Psych Appearance: grossly normal and well kempt Mental Status: mental status grossly normal Speech and movement: Normal speech and movement present and Clear speech present Affect: normal affect Attitude: cooperative Thought process: Normal thought process present Thought content: Normal thought content present Insight: Fair insight present (Psych) Judgement: Fair judgement present (Psych) Results AMB Urinalysis, Automated UA Leukoctes 0 Maggi/uL Last Edit by DANIEL Treviño on 11/25/24 10:51 UA Nitrite Negative Last Edit by DANIEL Treviño on 11/25/24 10:51 UA Urobilinogen 0.2 mg/dL Last Edit by DANIEL Treviño on 11/25/24 10:51 UA Protein 0 mg/dL Last Edit by DANIEL Treviño on 11/25/24 10:51 UA pH 8.0 Last Edit by DANIEL Treviño on 11/25/24 10:51 UA Blood 0 Harley/uL Last Edit by DANIEL Treviño on 11/25/24 10:51 UA Specific [place] 1.005 Last Edit by DANIEL Treviño on 11/25/24 10:51 UA Ketone Negative Last Edit by DANIEL Treviño on 11/25/24 10:51 UA Bilirubin 0 mg/dL Last Edit by DANIEL Treviño on 11/25/24 10:51 UA Glucose 0 mg/dL Last Edit by DANIEL Treviño on 11/25/24 10:51 Results Reviewed Results Reviewed: Laboratory Last Values Urine pH (Auto) 8.0 11/25/24 10:50 Specific [place] (Auto) 1.005 11/25/24 10:50 Urine Protein (Auto) 0 mg/dL 11/25/24 10:50 Glucose (UA)(Auto) 0 mg/dL 11/25/24 10:50 Urine Ketones (Auto) Negative 11/25/24 10:50 Urine Blood (Auto) 0 Harley/uL 11/25/24 10:50 Urine Nitrite (Auto) Negative 11/25/24 10:50 Urine Bilirubin (Auto) 0 mg/dL 11/25/24 10:50 Urine Urobilinogen (Auto) 0.2 mg/dL 11/25/24 10:50 Leukocyte Esterase (Auto) 0 Maggi/uL 11/25/24 10:50 Date of Service: 11/08/24 Procedure(s): US renal BI FINDINGS: Right kidney: The right kidney measures 13.0 x 4.1 x 5.3 cm. Renal parenchymal echotexture and thickness are normal. There is a 4 mm cyst in the interpolar region demonstrating wall calcification. There is no hydronephrosis or renal calculi. Left Kidney: The left kidney measures 12.4 x 5.1 x 4.1 cm. Renal parenchymal echotexture and thickness are normal. There are no masses. There is a 2 mm nonobstructing calculus at the lower pole. No hydronephrosis. IMPRESSION: 1. 4 mm right renal cyst. 2. 2 mm left renal calculus. Assessment & Plan Assessment & Plan (1) Nephrolithiasis: Code(s): N20.0 - Calculus of kidney Category: Medical (2) Hydronephrosis concurrent with and due to calculi of kidney and ureter: Code(s): N13.2 - Hydronephrosis with renal and ureteral calculous obstruction Category: Medical Plan In office urinalysis results with the patient today; as noted above. Recent renal imaging results reviewed with the patient today; as noted above. Recent PSA results with the patient today; as noted above. Start vitamin B6 as discussed and prescribed. Continue with adequate hydration as discussed. Continue adding 1 oz of lemon juice to water daily. He currently denies any bothersome urinary issues or concerns. He reports be happy with current voiding parameters. Will continue with surveillance monitoring We did discuss further metabolic workup to include Litholink and labs Will obtain renal ultrasound in 6 months Follow-up in 6 months with imaging to be completed prior; or sooner with any issues, concerns, and or questions. Orders: Orders US renal BI 6 Months N20.0 - Calculus of kidney AMB Urinalysis Automated Today Z13.9 - Encounter for screening, unspecified Medications: New pyridoxine (vitamin B6) 100 mg PO DAILY 90 tabs 1RF 90 days Patient Instructions: The patient had an opportunity to ask questions regarding the treatment plan. All questions were answered. Physical exam, labs, and imaging were discussed and reviewed in detail. As well as risks, benefits, and discussion of treatment choices. No major barriers to understanding were identified. The patient expressed understanding and agreement with the above treatment plan. The patient was made aware they should contact our office by phone for worsening of their current condition, the appearance of new symptoms, or with any questions or concerns. Compliance is encouraged with any medications and follow up testing that is ordered. It is a privilege to be allowed the opportunity to participate in? your urological care.? Again, if you have any questions or concerns If you have any questions or concerns please do not hesitate to contact me. The office is [phone]. This note is constructed using voice recognition software. While every effort has been made to ensure accuracy tax services specialist errors may have been included. Yours sincerely, MARV Deng Coding Level of Care Code Est Pt Level 4 (78325) Diagnoses Nephrolithiasis N20.0 Hydronephrosis concurrent with and due to calculi of kidney and ureter N13.2
== END 2024-11-25 11:08 | disposition home or self-care (01) ==
LOC: HO.HUSH 10:38
PROVIDERS: PCP Physician Assistant; Visit Provider Nurse Practitioner Family
DX: N20.0 Calculus of kidney (principal); N13.2 Hydronephrosis with renal and ureteral calculous obstruction; Z13.9 Encounter for screening, unspecified
CPT/HCPCS: 99214

== ENCOUNTER → 2024-11-25 10:38 | Outpatient (BNVA) | payer BC, SELFPAY | PROVIDERS: PCP Physician Assistant; Visit Provider Nurse Practitioner Family | DX: N13.2 Hydronephrosis with renal and ureteral calculous obstruction (principal); Z13.9 Encounter for screening, unspecified | CPT/HCPCS: 81003 ==

== ENCOUNTER 2025-02-03 08:12 | Outpatient (AMB) | payer BC, SELFPAY ==
--- NOTE | 2025-02-03 08:15 | A.OFFVIS_ITS ---
Vital Signs 02/03/25 08:16 Height 5 ft 6 in Weight 122 lb BMI 19.7 BP 135/70 Blood Pressure Location Lt brachial Position Sitting Pulse 72 Pulse Oximetry (%) 98 Oxygen Delivery Method Room Air Intake Visit Reasons: 6m gerd Intake Note: Patient 6 month follow up for Diverticulosis Patient cc: acid reflux on and off. Denies any other GI isssues for today visit. Registered Diet Technician Required: No Accompanied by: Self / Same As Patient Allergies No Known Allergies (No Known Allergies*) Allergy (Verified 02/03/25 08:21) Medication List - Last Reconciled 02/03/25 by Deysi Ross MD atorvastatin 80 mg PO .BEDTIME Q48H pantoprazole 40 mg PO QAM pyridoxine (vitamin B6) 100 mg PO DAILY 90 days HPI HPI 6m gerd: Details: GI clinic visit for this 59-year-old male for follow-up Pt was hospitalized at [facility] [place] (07/12 TO 07/13/22) for GI bleeding and anemia TODAY'S VISIT: Patient complains of acid reflux on and off - depending on his diet. Notes symptoms when he takes beef and hamburger Did not need surgery for kidney stones Appetite is good and unable to gain weight since he works 6 days a week at [employer] X 26 years. PAST VISITS: 07/08/24 seen at [facility] [place] ED with abd pain and diagnosed with kidney stones Scheduled to see Urology on 08/24/24 Notes intermittent abd pain in the left flank Lost some weight since he was eating less for 2 weeks due to abdominal pain. Has changed his diet and eating a lot of salads and sometimes fish and does not eat meat. Advised to take Tofu, low fat cottage cheese, beans and lentils to increase his protien intake Appetite improved and has gained 5 lbs Denies vomiting or diarrhea Heartburn well controlled with pantoprazole Work has been less stressful He was able to visit hs 82 year old Mom (with Demetnia) in [place] this year Dad is 85 and takes care of his Mom. Has 3 sisters in [place] and a brother in the [place] Patient follow up for Diverticulosis and lab results Unexplained wt loss of 10 lbs over the past year. Denies any change in eating habits. 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 EGD and colon results reviewed Still has intermittent epigastric/lower chest pain 4/10 Feeling more hungry and getting his appetite back Taking antibiotics for H pylori - still has 4-5 more days. Patient denies major cardiac or pulmonary problems, He admits to snoring and denies sleep apnea Denies problems with anesthesia in the past. Pt took an Aleve last week for abd pain and denies being on chronic anticoagulation. 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 Pt reports FH of colon cancer in his maternal GF at age 75 yrs Patient denies known family history of colon polyps or other GI malignancies. 07/02/[address] SCAN SHOWED: 1.? No acute findings in the abdomen or pelvis. No inflammatory changes. 2.? Nonobstructing left upper pole renal calculus. ENDOSCOPIC STUDIES: 10/21/22 EGD AND COLON SHOWED: Endoscopy Findings: STOMACH: Mild gastric erythema. Biopsies were obtained. Healed gastric ulcer and Grade 2 flap valve on retroflexed examination of the cardia. Colonoscopy Findings: One medium sized and one small polyps removed (small polyp was not retrieved) Moderate diverticulosis seen in the left colon Moderate hemorrhoids on retroflexed exam. Plan: Repeat Colonoscopy interval based on path results - in 3 years if polyps are adenomatous and 10 years if polyps are hyperplastic. (If rectal polyp shows advanced histology - then repeat flex sig in 3 - 6 months to check polypectomy site) 07/12/22 EGD SHOWED STOMACH:? A large deep 3 cms x 4 cms ulcer crater noted at the cardia with a few red spots without active bleeding just distal to GEJ from 43 to 46 cms - biopsies obtained. Moderate diffuse gastric erythema with a 5-6 mm superficial non-bleeding ulcer at the antrum. Antral biopsies were obtained to check for H pylori. DUODENUM: Edematous folds in the proximal bulb and normal bulb and descending duodenum No blood seen in the upper GI tract during upper endoscopy. Black stools likely from large ulcer at cardia - worrisome for malignancy. Plan:? Repeat CBC in the am Chest and abdominal CT scan with IV and PO contrast. Check CEA - added to am labs. If biopsies are positive for malignancy, pt will need further evaluation with? endoscopic ultrasound and Oncology consultation If biopsies are negative for malignancy, repeat EGD in 6 to 8 weeks to confirm gastric ulcer has healed Above findings were reviewed with the patient. ADDENDUM: BIOPSIES SHOWED: A.? Stomach, antrum, biopsy: - Antral-type mucosa with severe chronic active inflammation. - Positive for H pylori.B.? Stomach, cardia ulcer, biopsy: - Cardiac-type mucosa with severe chronic active inflammation and regenerative changes. - Positive for H pylori.CEA was normal 07/13/[address] SCAN WITH CONTRAST SHOWED: 1. Prominent wall thickening of the gastric fundus, increased when compared to the prior examination. No significant enhancement. Findings could indicate acute gastritis. No pneumatosis or evidence of perforation. 2. No intra-abdominal mass, lymphadenopathy, or ascites. 3. No hydronephrosis or nephrolithiasis. Previously seen left upperpole renal stone is not well visualized, likely related to contrast. 4. Prominent prostatomegaly with central calcifications, unchanged. 5. No pulmonary nodule, mass, or confluent airspace consolidation. PAST GI HISTORY BY REVIEW OF MEDICAL RECORDS: 07/12/22 patient was seen during recent hospitalization at [facility] [place]: 57 YM seen at [facility] [place] ED on 07/02/2022 with complaints of nausea vomiting and lower chest/midepigastric pain.?CT scan of abdomen pelvis was negative and patient was discharged home on PO ondansetron.? Pt reports worsening of abdominal pain over the past week Pain is 9/10 in intensity, constant and gets worse after eating solid food. Pt complains of nausea and had an episode on vomiting today containing streaks of blood.? About 3 days prior to presentation he started to develop black tardy stools - 1- 2 times a day. Pt reports wt loss of 9 lbs over the past 2 weeks. Pt came to the ER today after he noted increased abdominal pain with some dizziness.? Chest x-ray was normal hemoglobin was stable.? Pt was admitted for GI evaluation PAST EGD/COLONOSCOPY: 11/2018 Pt had a colonoscopy and two medium sized adenomatous polyps were removed.FU colon was advised in 3 yrs 2018:? Pt was seen at [facility] [place] ED with abdominal pain and discharged on Prilosec, Sucralfate and?bentyl [facility] Medical History Peptic ulcer Erectile dysfunction Encounter for physical examination Hemorrhoids Diverticulosis Mixed hyperlipidemia Surgical History History of esophagogastroduodenoscopy (EGD) Hx of colonoscopy History of inguinal hernia repair Family History Father No problems noted. Mother Chronic mental illness Alzheimers disease Paternal Grandmother Cancer Maternal Uncle Cancer Paternal Aunt Cancer Paternal Uncle Colon cancer Sister Breast cancer Maternal Grandfather Colon cancer Paternal Grandfather Prostate cancer Family/Other Chronic mental illness Social History Household Members: None Housing: Apartment Do you presently have visiting nurse or other home services: No Alcohol intake: current Alcohol intake frequency: does not drink Alcohol type: beer Patient Tobacco Use Status: Former Tobacco user Tobacco use type: Cigarette e-Cigarette/Vaping Use: Never Used Second Hand Smoke Exposure: No Substance Use Type: Marijuana service: No Current occupational status: employed Current occupational exposures/hazards: No Cognitive needs: No Hearing needs: No Vision needs: Yes Review of Systems Const All systems reviewed & are unremarkable except as noted in HPI and below Physical Exam Vital Signs: Last Vital Signs Pulse 72 02/03/25 08:16 BP 135/70 02/03/25 08:16 Pulse Ox 98 02/03/25 08:16 Oxygen Delivery Method Room Air 02/03/25 08:16 BMI result Body Mass Index 19.7 Const General: healthy appearing and no acute distress Nutritional Appearance: underweight Orientation/consciousness: patient oriented x3 Limitations: no limitations HEENT Head: Yes normal to inspection Ears: hearing grossly normal bilaterally Eyes Sclerae: sclerae normal Pupils: Equal, round and reactive pupils present Neck Neck: Yes normal visual inspection Chest Chest palpation & inspection: normal inspection of the chest Resp Effort & Inspection: normal respiratory effort Auscultation: clear to auscultation bilaterally Cardio Palpation: normal PMI Rate: regular rate Rhythm: regular rhythm Heart sounds: S1 normal heart sound present, S2 normal heart sound present and no murmurs GI Palpation (GI): Soft to palpation, nontender and No hepatosplenomegaly present Auscultation: normal bowel sounds Rectal Exam - Male: Yes deferred Skin General skin exam: no rashes or lesions noted Neuro General: patient oriented x3, gait normal and moves all extremities Cranial nerves: Yes Equal, round and reactive pupils present Psych Appearance: grossly normal Mental Status: mental status grossly normal Assessment & Plan Assessment & Plan (1) Diverticulosis: Code(s): K57.90 - Diverticulosis of intestine, part unspecified, without perforation or abscess without bleeding Category: Medical (2) Hemorrhoids: Code(s): K64.9 - Unspecified hemorrhoids Category: Medical (3) Helicobacter pylori gastritis: Code(s): K29.70 - Gastritis, unspecified, without bleeding; B96.81 - Helicobacter pylori [H. pylori] as the cause of diseases classified elsewhere Category: Medical (4) GERD (gastroesophageal reflux disease): Code(s): K21.9 - Gastro-esophageal reflux disease without esophagitis Category: Medical Qualifiers: Esophagitis presence: with esophagitis Esophagitis bleeding: with hemorrhage Qualified Code(s): K21.01 - Gastro-esophageal reflux disease with esophagitis, with bleeding (5) History of colon polyps: Code(s): Z86.010 - Personal history of colon polyps Category: Medical Plan 59 YM hospitalized at [facility] [place] 07/12/22 with nausea, vomiting, lower chest/midepigastric pain and black tarry stools.? 07/02/22 CT scan of abdomen pelvis was negative.? Pt reported wt loss of 9 lbs over the preceding 2 weeks. EGD was performed and findings as noted above Pt was prescribed antibiotics (quadruple therapy) for H pylori detected on gastric biopsy 09/2022 EGD (FU of gastric ulcer) with same-day colonoscopy (FU of colon polyps) were performed and results as noted above. Repeat colon advised in 3 years (due 09/2025) He was advised to decrease omeprazole to 40 mg once a day. 05/08/22 Pt advised to check labs and continue taking Omeprazole 40 mg daily 11/06/23 Patient follow up for Diverticulosis and lab results Unexplained wt loss of 10 lbs over the past year. Pt advised to continue Pantoprazole 40 mg daily 02/02/24 GERD well controlled with Pantoprazole Has gained 5 lbs 08/05/24 Intermittent left flank pain due to a 4 mm obstructing calculus at the left UVJ. Scheduled to see Urology on 08/24/2024 10/9/25 continue pantoprazole 40 mg daily for GERD. FU in 6 month Medications: New cholecalciferol (vitamin D3) 25 mcg PO DAILY 90 caps 0RF 90 days E55.9 - Vitamin D deficiency, unspecified Coding Level of Care Code Est Pt Level 3 (52949) Diagnoses Diverticulosis K57.90 Hemorrhoids K64.9 Helicobacter pylori gastritis K29.70; B96.81 Gastroesophageal reflux disease with esophagitis and hemorrhage K21.01 Esophagitis presence: with esophagitis Esophagitis bleeding: with hemorrhage History of colon polyps Z86.010 Time Spent (min) 17
[2025-02-03 08:16] VITALS: BP 135/70; PULSE 72; O2SAT 98; BMI 19.7
== END 2025-02-03 08:58 | disposition home or self-care (01) ==
LOC: HO.HGI 08:13
PROVIDERS: PCP Physician Assistant; Visit Provider Internal Medicine Gastroenterology
DX: K57.90 Diverticulosis of intestine, part unspecified, without perforation or abscess without bleeding (principal); K64.9 Unspecified hemorrhoids; K29.70 Gastritis, unspecified, without bleeding; B96.81 Helicobacter pylori [H. pylori] as the cause of diseases classified elsewhere; K21.01 Gastro-esophageal reflux disease with esophagitis, with bleeding; Z86.0100 Personal history of colon polyps, unspecified
CPT/HCPCS: 99213